=== PATIENT | female | born 1940 | race Two or more races ===

== ENCOUNTER 2021-01-19 18:22 | Emergency (ER) | payer OTHER ==
[~2021-01-19] VITALS: Ht 162.6 cm; Wt 59.0 kg
[2021-01-19 21:01] VITALS: BP 161/81
[2021-01-19] MEDS ORDERED: traMADol HCL 50 MG TAB PO ONE ×2 (21:45→23:30)
== END 2021-01-19 23:48 | disposition home or self-care (01) ==
LOC: ER 18:25
DX: S52.502A Unspecified fracture of the lower end of left radius, initial encounter for closed fracture (principal); I10 Essential (primary) hypertension; E11.9 Type 2 diabetes mellitus without complications; Z88.5 Allergy status to narcotic agent; W18.39XA Other fall on same level, initial encounter; Y93.89 Activity, other specified; Y92.89 Other specified places as the place of occurrence of the external cause; Y99.8 Other external cause status
CPT/HCPCS: 29125; 73110

== ENCOUNTER 2024-04-19 12:25 | Inpatient (IN) | payer OTHER ==
[~2024-04-19] VITALS: Ht 162.6 cm; Wt 65.0 kg
--- NOTE | 2024-04-19 12:33 | ED.PDOC ---
Nigel. trauma (HPI) HPI Comments 83 y.o female with PMHx of HTN, hyperlipidemia, and Plavix use, presents to the ED via EMS for a chief complaint of right sided hip pain s/p mechanical fall today at home x 0600. EMS reports patient has 10/10 pain on right leg movement and is associated with rotation and shortening. Patient was assisted up by family earlier today and denies any LOC or feeling dizzy prior to fall. Patient received one gram of Tylenol en route by EMS but had no relief. On episode of vomiting noted on scene. Patient denies any other symptoms or pain at this time. BG read 192 prior to ED arrival. Chief Complaint: Fall Injury Time Seen by MD: 12:23 Primary Care Provider: NARA Urena notes: Nurses Notes, Automotive Brake Adjuster Notes, Medications, Allergies Allergies: Coded Allergies: Codeine (Verified Allergy, Unknown, 08/21/17) Home Meds Unable to Obtain Active Prescriptions or Reported Meds Information Source: Patient, Emergency Med Personnel Mode of Arrival: EMS Severity: Moderate Timing: Hours Duration: Since onset Prehospital treatment: Accucheck (192), Pain Meds (1 gram tylenol ) Location: (R) Hip Location of laceration: None Mechanism: Fall Associated signs and symtoms: Other Past Medical History PAST MEDICAL HISTORY: DM, High Lipids, HTN 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 Family History Family History: Reviewed,noncontributory to illness, No family hx of Cancer, No family hx of DM, No family hx of Heart giorgio, No family hx of HTN, No family hx ofKidney giorgio, No family hx of Liver giorgio, No family hx of Lung giorgio, No family hx of Stroke Social History Smoker: Non-Smoker Alcohol: Denies ETOH Use Drugs: Denies Drug Use Lives In: Home Constitutional: denies: chills, diaphoresis, fatigue, fever, malaise, sweats, weakness, others EENTM: denies: blurred vision, double vision, ear bleeding, ear discharge, ear drainage, ear pain, ear ringing, eye pain, eye redness, hearing loss, mouth pain, mouth swelling, nasal discharge, nose bleeding, nose congestion, nose pain, photophobia, tearing, throat pain, throat swelling, voice changes, others Respiratory: denies: cough, hemoptysis, orthopnea, SOB at rest, shortness of breath, SOB with excertion, stridor, wheezing, others Cardiovascular: denies: chest pain, dizzy spells, diaphoresis, Dyspnea on exertion, edema, irregular heart beat, left arm pain, lightheadedness, palpitations, PND, syncope, others Gastrointestinal: denies: abdomen distended, abdominal pain, blood streaked bowels, constipated, diarrhea, dysphagia, difficulty swallowing, hematemesis, melena, nausea, poor appetite, poor fluid intake, rectal bleeding, rectal pain, vomiting, others Genitourinary: denies: abnormal vagina bleeding, burning, dyspareunia, dysuria, flank pain, frequency, hematuria, incontinence, pain, , vagina discharge, urgency, others Neurological: denies: dizziness, fainting, headache, left sided numbness, left sided weakness, numbness, paresthesia, pre-existing deficit, right sided numbness, right sided weakness, seizure, speech problems, tingling, tremors, weakness, others Musculoskeletal: reports: others (right hip pain ); denies: back pain, gout, joint pain, joint swelling, muscle pain, muscle stiffness, neck pain Integumetry: denies: bruises, change in color, change in hair/nails, dryness, laceration, lesions, lumps, rash, wounds, others Allergic/Immunocompromised: denies: Difficulty Healing, Frequent Infections, Hives, Itching, others Hematologic/Lymphatic: denies: anemia, blood clots, easy bleeding, easy bruising, swollen glands, others Endocrine: denies: excessive hunger, excessive sweating, excessive thirst, excessive urination, flushing, intolerance to cold, intolerance to heat, unexplained weight gain, unexplained weight loss, others Psychiatric: denies: anxiety, bipolar disorder, depression, hopeless, panic disorder, schizophrenia, sleepless, suicidal, others All Other Systems: Reviewed and Negative Physical Exam General Appearance: Moderate Distress HEENT: Normal ENT Inspection, Pharynx Normal, TMs Normal Neck: Full Range of Motion, Non-Tender, Normal, Normal Inspection Respiratory: Chest Non-Tender, Lungs Clear, No Accessory Muscle Use, No Respiratory Distress, Normal Breath Sounds Cardiovascular: No Edema, No JVD, No Murmur, No Gallop, Normal Peripheral Pulses, Regular Rate/Rhythm Breast Exam: Deferred Gastrointestinal: No Organomegaly, Non Tender, No Pulsatile Mass, Normal Bowel Sounds, Soft Genitalia: Deferred Pelvic: Deferred Rectal: Deferred Extremities: No calf tenderness, Normal capillary refill, No pedal edema Musculoskeletal : Location: Right Extremity Location: Hip Apperance: Deformity, Limited ROM, Tenderness: Moderate Neurologic: Alert, canvas shrinker II-XII nml as Tested, Motor Weakness, Normal Affect, Normal Mood, No Sensory Deficits Cerebellar Function: Normal Reflexes: Normal Skin: Dry, Normal Color, Warm Lymphatic: No Adenopathy Was a procedure done? Was a procedure done?: No Differential Diagnosis Multiple Trauma: Fractures, Abrasions, Contusion X-Ray, Labs, Meds, VS Vital Signs Date Time Temp Pulse Resp B/P (MAP) Pulse Ox O2 Delivery O2 Flow Rate FiO2 04/19/24 13:31 82 22 96 Nasal Cannula* 2 28 04/19/24 13:20 78 21 151/76 (101) 96 04/19/24 13:12 82 16 151/76 04/19/24 12:28 98.5 93 20 164/75 (104) 98 Lab Test 04/19/24 13:41 04/19/24 13:30 Range/Units White Blood Count 9.4 4.4-10.8 10^3/uL Red Blood Count 4.20 4.0-5.20 10^6/uL Hemoglobin 12.4 12.2-16.2 g/dL Hematocrit 37.2 36.0-46.0 % Mean Corpuscular Volume 88.5 80.0-100.0 fL Mean Corpuscular Hemoglobin 29.6 28.0-32.0 pg Mean Corpuscular Hemoglobin Concent 33.4 32.0-36.0 g/dL Red Cell Distribution Width 13.5 11.8-14.3 % Platelet Count 228 140-450 10^3/uL Mean Platelet Volume 7.9 6.9-10.8 fL Neutrophils (%) (Auto) 87.2 H 37.0-80.0 % Lymphocytes (%) (Auto) 6.5 L 10.0-50.0 % Monocytes (%) (Auto) 6.1 0.0-12.0 % Eosinophils (%) (Auto) 0.0 0.0-7.0 % Basophils (%) (Auto) 0.2 0.0-2.0 % Neutrophils # (Auto) 8.2 1.6-8.6 10 ^3/uL Lymphocytes # (Auto) 0.6 0.4-5.4 10 ^3/uL Monocytes # (Auto) 0.6 0-1.3 10 ^3/uL Eosinophils # (Auto) 0 0-0.8 10 ^3/uL Basophils # (Auto) 0 0-0.2 10 ^3/uL Nucleated Red Blood Cells 0.0 % Prothrombin Time 9.9 9.3-11.8 sec Prothrombin Time INR 0.93 0.9-1.15 Activated Partial Thromboplast Time 24.5 24.5-34.5 SEC Sodium Level 134 L 136-145 mmol/L Potassium Level 3.7 3.5-5.1 mmol/L Chloride Level 101 98-107 mmol/L Carbon Dioxide Level 22 20-31 mmol/L Anion Gap 11 5-15 Blood Urea Nitrogen 18 9-23 mg/dL Creatinine 0.79 0.550-1.02 mg/dL Glomerular Filtration Rate Calc 74 >90 mL/min BUN/Creatinine Ratio 22.8 H 10.0-20.0 Serum Glucose 157 H 74-106 mg/dL Calcium Level 9.6 8.7-10.4 mg/dL Urine Color Dark-yellow Yellow Urine Clarity Clear Clear Urine pH 6.5 5.0-9.0 Urine Specific [place] 1.017 1.001-1.035 Urine Protein 1+ H Negative Urine Ketones 2+ H Negative Urine Blood 3+ H Negative /uL Urine Nitrite Negative Negative Urine Bilirubin Negative Negative Urine Urobilinogen Normal Negative mg/dL Urine Leukocyte Esterase 1+ Negative /uL Urine RBC 215 0 - 4 /hpf Urine Microscopic WBC 18 H 0-5 /HPF Urine Squamous Epithelial Cells Few <5 /hpf Urine Bacteria None seen None Seen /hpf Urine Mucus Few None Seen Urine Glucose Normal Normal mg/dL Current Medications Medications (Trade) Dose Ordered Sig/Praveena Route Start Time Stop Time Status Last Admin Morphine Sulfate 2 mg ONCE ONCE IV 04/19/24 12:30 04/19/24 12:31 DC 04/19/24 13:12 Ondansetron HCl (Zofran) 4 mg ONCE ONCE IV 04/19/24 12:30 04/19/24 12:31 DC 04/19/24 13:11 CLINICAL INFORMATION: 83 years old, Female; fall injury. CT images of the right hip were obtained without IV contrast IMPRESSION: Acute right hip intertrochanteric fracture as described above. CLINICAL INDICATION: Trauma FINDINGS/IMPRESSION: Right intertrochanteric nondisplaced fracture is visualized. The chest x-ray is negative At this time, we did speak with the orthopedic surgeon and he has accepted to consult on this patient The urine test is positive for UTI The CBC and chemistry panel is within normal limits At this time, the patient had an IV Hep-Lock established and was given morphine 2 mg IV push for the pain and Zofran 4 mg IV push The patient will be admitted at this time. Images Reviewed?: Images reviewed and evaluated by me Time of 1ST Reevaluation: 12:32 Reevaluation 1ST: Unchanged Patient Education/Counseling: Diagnosis, Treatment, Prognosis Family Education/Counseling: No Family Present Departure 1 Departure Time of Disposition: 14:57 Impression: Primary Impression: Fracture, intertrochanteric, right femur Qualified Codes: S72.144A - Nondisplaced intertrochanteric fracture of right femur, initial encounter for closed fracture Additional Impression: History of fall Disposition: ADMITTED INPATIENT Admit to: Med Surg Condition: Fair e-Prescriptions Unable to Obtain Active Prescriptions or Reported Meds Critical Care Note Critical Care Time?: No Stability Stability form required: Yes Unstable for transfer: ED Physician Assesment (Clinical assesment) I personally scribed for DOLORES STONE MD ([email or web address]) on 04/19/24 at 12:33. Electronically submitted by Kamala Whitt ([employer]). I personally scribed for DOLORES STONE MD ([email or web address]) on 04/19/24 at 14:36. Electronically submitted by Kamala Whitt ([employer]). DOLORES STONE MD Apr 19, 2024 12:33
[2024-04-19] MEDS: ONDANSETRON HCL 4 MG/2 ML VIAL IV ONE (13:11)
[2024-04-19] MEDS: MORPHINE SULFATE INJ 2 MG/ml SYRG IV ONE (13:12)
--- NOTE | 2024-04-19 13:19 | DVH ---
CLINICAL INDICATION: Trauma TECHNIQUE: 3 radiographic views of the right hip were obtained. Comparison: None FINDINGS/IMPRESSION: Right intertrochanteric nondisplaced fracture is visualized.
--- NOTE | 2024-04-19 13:19 | DVH ---
CLINICAL INDICATION: Trauma TECHNIQUE: 3 radiographic views of the right hip were obtained. Comparison: None FINDINGS/IMPRESSION: Right intertrochanteric nondisplaced fracture is visualized.
[2024-04-19 13:31] VITALS: PULSE 82; RESP 22; O2SAT 96
[2024-04-19 13:47] LABS: Urine Bacteria None Seen /hpf (None Seen)
[2024-04-19 14:20] LABS: Urine Blood 3+ /uL (Negative); Urine Clarity Clear (Clear); Urine Color Dark-Yellow (Yellow); Urine Mucus FEW (None Seen); Urine Protein, UAD 1+ (Negative); Urine Specific Gravity 1.017 (1.001-1.035); Urine Squamous Epithelial Cell FEW /hpf (<5); Urine Urobilinogen Normal (Negative); Urine WBC 18 /HPF (0-5); Urine pH 6.5 (5.0-9.0)
[2024-04-19 14:21] LABS: Basophils # (auto) 0 10 ^3/uL (0-0.2); Basophils % (auto) 0.2 % (0.0-2.0); Eosinophils # (auto) 0 10 ^3/uL (0-0.8); Hematocrit 37.2 % (36.0-46.0); Hemoglobin 12.4 g/dL (12.2-16.2); Lymphocytes # (auto) 0.6 10 ^3/uL (0.4-5.4); Lymphocytes % (auto) 6.5 % (10.0-50.0); Mean Corpuscular Hemoglobin 29.6 pg (28.0-32.0); Mean Corpuscular Hgb Conc. 33.4 g/dL (32.0-36.0); Mean Corpuscular Volume 88.5 fL (80.0-100.0); Monocytes # (auto) 0.6 10 ^3/uL (0-1.3); Monocytes % (auto) 6.1 % (0.0-12.0); Neutrophils # (auto) 8.2 10 ^3/uL (1.6-8.6); Neutrophils % (auto) 87.2 % (37.0-80.0); Platelet Count (auto) 228 10^3/uL (140-450); Red Cell Distribution Width 13.5 % (11.8-14.3); White Blood Cell 9.4 10^3/uL (4.4-10.8)
--- NOTE | 2024-04-19 14:27 | DVH ---
CLINICAL INFORMATION: 83 years old, Female; fall injury. TECHNIQUE: Axial CT images of the right hip were obtained without IV contrast. Coronal and sagittal r eformatted images were obtained, reviewed, and stored. Scratched at All CT scans at this [facility] are performed using dose modulation techniques as appropriate to a performed exam including th e following: Automated exposure control was utilized; adjustment of the MA and/or KV according to pat ient size; and use of iterative reconstruction technique. CTDIvol = 11.03 mGy DLP = 309.47 mGy-cm COMPARISON: Same day radiographs. FINDINGS: Acute, comminuted right hip intertrochanteric fracture, with fracture planes extending to t he greater trochanter and lesser trochanter. Small thin fracture plane extending to the subtrochante alin region. There is associated varus angulation. [id number] soft tissue swelling adjacent to t he fracture site. There is a [place] catheter extending into the bladder. Large bladder calculus visual ized measuring up to 2.7 cm. Dense stool in the rectum. IMPRESSION: Acute right hip intertrochanteric fracture as described above.
[2024-04-19 14:28] LABS: Anion Gap 11 (5-15); Carbon Dioxide 22 mmol/L (20-31); Chloride 101 mmol/L (98-107); Potassium 3.7 mmol/L (3.5-5.1)
[2024-04-19 14:30] LABS: Calcium 9.6 mg/dL (8.7-10.4); Sodium 134 mmol/L (136-145)
[2024-04-19 14:34] LABS: BUN/Creatinine Ratio 22.8 (10.0-20.0); Blood Urea Nitrogen 18 mg/dL (9-23)
[2024-04-19 14:38] LABS: INR 0.93 (0.9-1.15); Partial Thromboplastin Time 24.5 SEC (24.5-34.5); Prothrombin Time 9.9 sec (9.3-11.8)
[2024-04-19 14:41] LABS: Glucose 157 mg/dL (74-106)
[2024-04-19] MEDS: amLODIPine BESYLATE 5 MG TAB PO ONE (19:30)
--- NOTE | 2024-04-19 19:59 | DVHHP2 ---
Admitting Diagnosis: Right hip pain History of Present Illness 83 y.o female with PMHx of HTN, hyperlipidemia, and Plavix use, presents to the ED via EMS for a chief complaint of right sided hip pain s/p mechanical fall today at home x 0600. EMS reports patient has 10/10 pain on right leg movement and is associated with rotation and shortening. Patient was assisted up by family earlier today and denies any LOC or feeling dizzy prior to fall. Patient received one gram of Tylenol en route by EMS but had no relief. On episode of vomiting noted on scene. Patient denies any other symptoms or pain at this time. BG read 192 prior to ED arrival. 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 Family History Family History: Reviewed,noncontributory to illness, No family hx of Cancer, No family hx of DM, No family hx of Heart giorgio, No family hx of HTN, No family hx ofKidney giorgio, No family hx of Liver giorgio, No family hx of Lung giorgio, No family hx of Stroke Social History Smoker: Non-Smoker Alcohol: Denies ETOH Use Drugs: Denies Drug Use Lives In: Home Allergies: Coded Allergies: Codeine (Verified Allergy, Unknown, 08/21/17) Home Meds Unable to Obtain Active Prescriptions or Reported Meds Current Medications Current Medications Medications (Trade) Dose Ordered Sig/Praveena Route PRN Reason Start Time Stop Time Status Last Admin Sodium Chloride (Saline Lock Ns) 10 ml Q8HR IV 04/19/24 22:00 UNV Docusate Sodium (Colace Capsule) 100 mg BIDPRN PRN PO FOR CONSTIPATION 04/19/24 20:00 UNV Acetaminophen (Tylenol Tablet) 650 mg Q6HP PRN PO PAIN SCALE 1-3 OR TEMP>100.4 04/19/24 20:00 UNV Acetaminophen/ Hydrocodone Bitart ([place] 5/325MG Tab) 1 tab Q4HP PRN PO MODERATE PAIN (4-6 PAIN SCALE) 04/19/24 20:00 UNV Hydromorphone HCl (Dilaudid Injection) 0.5 mg Q4HP PRN IV SEVERE PAIN (7-10 PAIN SCALE) 04/19/24 20:00 UNV Ondansetron HCl (Zofran) 4 mg Q4HP PRN IV NAUSEA / VOMITING 04/19/24 20:00 UNV Amlodipine Besylate (Norvasc Tablet) 10 mg DAILY PO 04/20/24 10:00 UNV Hydralazine HCl (Apresoline Injection) 5 mg Q4H PRN IV SBP > 165 04/19/24 20:00 UNV Pantoprazole Sodium (Protonix) 40 mg DAILY IV 04/20/24 10:00 UNV Vital Signs Vital Signs Date Time Temp Pulse Resp B/P (MAP) Pulse Ox O2 Delivery O2 Flow Rate FiO2 04/19/24 19:42 98.4 73 21 154/85 (108) 96 98.4 04/19/24 13:31 Nasal Cannula* 2 28 Physical Exam -83 years old woman, well nourished well developed. No apparent distress HEENT-atraumatic normocephalic Heart-regular rate and rhythm Lungs clear to auscultate bilaterally Abdomen soft nontender nondistended Musculoskeletal-right hip pain with the movement and palpation. Neuro-AO x3, no focal deficits Results Labs Test 04/19/24 13:41 04/19/24 13:30 Range/Units White Blood Count 9.4 4.4-10.8 10^3/uL Red Blood Count 4.20 4.0-5.20 10^6/uL Hemoglobin 12.4 12.2-16.2 g/dL Hematocrit 37.2 36.0-46.0 % Mean Corpuscular Volume 88.5 80.0-100.0 fL Mean Corpuscular Hemoglobin 29.6 28.0-32.0 pg Mean Corpuscular Hemoglobin Concent 33.4 32.0-36.0 g/dL Red Cell Distribution Width 13.5 11.8-14.3 % Platelet Count 228 140-450 10^3/uL Mean Platelet Volume 7.9 6.9-10.8 fL Neutrophils (%) (Auto) 87.2 H 37.0-80.0 % Lymphocytes (%) (Auto) 6.5 L 10.0-50.0 % Monocytes (%) (Auto) 6.1 0.0-12.0 % Eosinophils (%) (Auto) 0.0 0.0-7.0 % Basophils (%) (Auto) 0.2 0.0-2.0 % Neutrophils # (Auto) 8.2 1.6-8.6 10 ^3/uL Lymphocytes # (Auto) 0.6 0.4-5.4 10 ^3/uL Monocytes # (Auto) 0.6 0-1.3 10 ^3/uL Eosinophils # (Auto) 0 0-0.8 10 ^3/uL Basophils # (Auto) 0 0-0.2 10 ^3/uL Nucleated Red Blood Cells 0.0 % Prothrombin Time 9.9 9.3-11.8 sec Prothrombin Time INR 0.93 0.9-1.15 Activated Partial Thromboplast Time 24.5 24.5-34.5 SEC Sodium Level 134 L 136-145 mmol/L Potassium Level 3.7 3.5-5.1 mmol/L Chloride Level 101 98-107 mmol/L Carbon Dioxide Level 22 20-31 mmol/L Anion Gap 11 5-15 Blood Urea Nitrogen 18 9-23 mg/dL Creatinine 0.79 0.550-1.02 mg/dL Glomerular Filtration Rate Calc 74 >90 mL/min BUN/Creatinine Ratio 22.8 H 10.0-20.0 Serum Glucose 157 H 74-106 mg/dL Calcium Level 9.6 8.7-10.4 mg/dL Urine Color Dark-yellow Yellow Urine Clarity Clear Clear Urine pH 6.5 5.0-9.0 Urine Specific [place] 1.017 1.001-1.035 Urine Protein 1+ H Negative Urine Ketones 2+ H Negative Urine Blood 3+ H Negative /uL Urine Nitrite Negative Negative Urine Bilirubin Negative Negative Urine Urobilinogen Normal Negative mg/dL Urine Leukocyte Esterase 1+ Negative /uL Urine RBC 215 0 - 4 /hpf Urine Microscopic WBC 18 H 0-5 /HPF Urine Squamous Epithelial Cells Few <5 /hpf Urine Bacteria None seen None Seen /hpf Urine Mucus Few None Seen Urine Glucose Normal Normal mg/dL Primary Diagnosis Acute Right trochanteric fracture mechanical fall Plan CT scan and x-ray shows right trochanteric fracture NPO abdomen and IV fluids IV pain control IV antiemetic Resume antihypertensive IV hydralazine p.r.n. for SBP greater than 165 Orthopedic consult for right hip fracture SCD for DVT prophylaxis Full code PPI for GI prophylaxis Plan discussed with: Patient Problems List: (1) Fall Status: Acute (2) Fracture, intertrochanteric, right femur Status: Acute Date of Service: Apr 19, 2024 Billing Provider: CELINA DOTSON MD Common Visit Codes: [id number] INP/OBS CARE (HIGH) CELINA DOTSON MD Apr 19, 2024 19:59
[2024-04-19] MEDS ORDERED: hydrALAZINE HCL 20 MG/ML VL IV PRN (20:00)
[2024-04-19] MEDS: D5W/LACTATED RINGERS 1,000 ML IV ONE (20:00)
[2024-04-19] MEDS: HYDROcodone-ACET 5/325MG TAB PO PRN (21:00)
[2024-04-19 22:18] VITALS: RESP 18; O2SAT 94
[2024-04-19 22:30] VITALS: BP 144/69; PULSE 76; RESP 18; TEMP 98; O2SAT 95
[2024-04-19] MEDS ORDERED: AMLO1TAB23 PO (22:34)
[2024-04-19] MEDS ORDERED: CLOP75TA70 PO (22:34)
[2024-04-19] MEDS: SODIUM CHLOR 0.9% PF (SALINE LOCK) 10ML VIAL/SYR IV SCH (23:09)
[2024-04-20] VITALS (7 sets, daily range): BP systolic 127–168; BP diastolic 64–75; PULSE 74–84; RESP 18–20; TEMP 97.3–98.4; O2SAT 92–95
[2024-04-20 06:15] LABS: Basophils # (auto) 0 10 ^3/uL (0-0.2); Basophils % (auto) 0.2 % (0.0-2.0); Eosinophils # (auto) 0 10 ^3/uL (0-0.8); Eosinophils % (auto) 0.2 % (0.0-7.0); Hematocrit 37.8 % (36.0-46.0); Hemoglobin 12.9 g/dL (12.2-16.2); Lymphocytes # (auto) 1.5 10 ^3/uL (0.4-5.4); Mean Corpuscular Hemoglobin 30.1 pg (28.0-32.0); Mean Corpuscular Hgb Conc. 34.2 g/dL (32.0-36.0); Monocytes # (auto) 0.7 10 ^3/uL (0-1.3); Monocytes % (auto) 9.7 % (0.0-12.0); Neutrophils # (auto) 4.9 10 ^3/uL (1.6-8.6); Neutrophils % (auto) 68.9 % (37.0-80.0); Nucleated Red Blood Cells % 0.1 %; Platelet Count (auto) 200 10^3/uL (140-450); Red Cell Distribution Width 13.5 % (11.8-14.3); White Blood Cell 7.1 10^3/uL (4.4-10.8)
[2024-04-20] MEDS: HYDROmorphone HCL 2 MG/ML VL/or syr IV PRN (06:27)
[2024-04-20] MEDS: ONDANSETRON HCL 4 MG/2 ML VIAL IV PRN (06:48)
[2024-04-20 07:04] LABS: Anion Gap 8 (5-15); Carbon Dioxide 25 mmol/L (20-31)
[2024-04-20 07:05] LABS: Calcium 9.6 mg/dL (8.7-10.4)
[2024-04-20 07:07] LABS: Chloride 99 mmol/L (98-107); Potassium 3.6 mmol/L (3.5-5.1); Sodium 132 mmol/L (136-145)
[2024-04-20 07:09] LABS: Glucose 121 mg/dL (74-106)
[2024-04-20 07:10] LABS: Alkaline Phosphatase 82 U/L (46-116)
[2024-04-20 07:11] LABS: Alanine Aminotransferase 12 U/L (7-40); Albumin 4.1 g/dL (3.2-4.8); Aspartate Aminotransferase 18 U/L (13-40)
[2024-04-20 07:12] LABS: Bilirubin, Total 0.9 mg/dL (0.2-1.0)
[2024-04-20 07:23] LABS: BUN/Creatinine Ratio 18.2 (10.0-20.0); Blood Urea Nitrogen 12 mg/dL (9-23)
--- NOTE | 2024-04-20 07:29 | DVHINCON2 ---
Date of service: Apr 20, 2024 Referring Physician ED Reason for Consultation right hip fracture History of Present Illness 83 y.o female with PMHx of HTN, hyperlipidemia, presents to the ED via EMS for a chief complaint of right sided hip pain s/p mechanical fall yesterday at home. Patient complains of severe pain and inability to bear weight right hip. Patient denies cardiac or neurosxs associated with fall. Patient denies any other injuries. Patient lives in her own home and is an independent ambulator without assistive devices. Patient denies chest pain or shortness of breath with activity. She reports a remote history of myocardial infarction. 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 Social History Smoker: Non-Smoker Alcohol: Denies ETOH Use Drugs: Denies Drug Use Lives In: Home Family History: Alcoholism G8 FATHER Allergies: Coded Allergies: Codeine (Verified Allergy, Unknown, 08/21/17) Home Meds Reported Medications Clopidogrel Bisulfate (CLOPIDOGREL) 75 Mg Tab, 1 TAB PO DAILY 04/19/24 Amlodipine Besylate (Amlodipine Besylate) 10 Mg Tab, 1 TAB PO DAILY 04/19/24 Current Medications Current Medications Medications (Trade) Dose Ordered Sig/Praveena Route PRN Reason Start Time Stop Time Status Last Admin Sodium Chloride (Saline Lock Ns) 10 ml Q8HR IV 04/19/24 22:00 04/20/24 06:03 Docusate Sodium (Colace Capsule) 100 mg BIDPRN PRN PO FOR CONSTIPATION 04/19/24 20:00 Acetaminophen (Tylenol Tablet) 650 mg Q6HP PRN PO PAIN SCALE 1-3 OR TEMP>100.4 04/19/24 20:00 Acetaminophen/ Hydrocodone Bitart ([place] 5/325MG Tab) 1 tab Q4HP PRN PO MODERATE PAIN (4-6 PAIN SCALE) 04/19/24 20:00 04/20/24 00:57 Hydromorphone HCl (Dilaudid Injection) 0.5 mg Q4HP PRN IV SEVERE PAIN (7-10 PAIN SCALE) 04/19/24 20:00 04/20/24 06:27 Ondansetron HCl (Zofran) 4 mg Q4HP PRN IV NAUSEA / VOMITING 04/19/24 20:00 04/20/24 06:48 Amlodipine Besylate (Norvasc Tablet) 10 mg DAILY PO 04/20/24 10:00 Hydralazine HCl (Apresoline Injection) 5 mg Q4H PRN IV SBP > 165 04/19/24 20:00 Pantoprazole Sodium (Protonix) 40 mg DAILY IV 04/20/24 10:00 Review of Systems Negative on 10 point review except as above Vital Signs Vital Signs Date Time Temp Pulse Resp B/P (MAP) Pulse Ox O2 Delivery O2 Flow Rate FiO2 04/20/24 06:27 78 18 154/75 04/20/24 05:00 97.4 94 97.4 04/19/24 13:31 Nasal Cannula* 2 28 Physical Exam Well-developed well-nourished female in no acute distress Alert and oriented x4 Right lower extremity is short and rotated Any passive range of motion right lower extremity causes severe right hip pain No calf edema or tenderness Distally neurovascularly intact X-rays and CT reveal angulated, comminuted intertrochanteric fracture right hip, osteopenia Labs/Diagnostic Data Labs Test 04/20/24 05:25 04/19/24 13:41 04/19/24 13:30 Range/Units White Blood Count 7.1 4.4-10.8 10^3/uL Red Blood Count 4.30 4.0-5.20 10^6/uL Hemoglobin 12.9 12.2-16.2 g/dL Hematocrit 37.8 36.0-46.0 % Mean Corpuscular Volume 88.0 80.0-100.0 fL Mean Corpuscular Hemoglobin 30.1 28.0-32.0 pg Mean Corpuscular Hemoglobin Concent 34.2 32.0-36.0 g/dL Red Cell Distribution Width 13.5 11.8-14.3 % Platelet Count 200 140-450 10^3/uL Mean Platelet Volume 7.8 6.9-10.8 fL Neutrophils (%) (Auto) 68.9 37.0-80.0 % Lymphocytes (%) (Auto) 21.0 10.0-50.0 % Monocytes (%) (Auto) 9.7 0.0-12.0 % Eosinophils (%) (Auto) 0.2 0.0-7.0 % Basophils (%) (Auto) 0.2 0.0-2.0 % Neutrophils # (Auto) 4.9 1.6-8.6 10 ^3/uL Lymphocytes # (Auto) 1.5 0.4-5.4 10 ^3/uL Monocytes # (Auto) 0.7 0-1.3 10 ^3/uL Eosinophils # (Auto) 0 0-0.8 10 ^3/uL Basophils # (Auto) 0 0-0.2 10 ^3/uL Nucleated Red Blood Cells 0.1 % Sodium Level 132 L 136-145 mmol/L Potassium Level 3.6 3.5-5.1 mmol/L Chloride Level 99 98-107 mmol/L Carbon Dioxide Level 25 20-31 mmol/L Anion Gap 8 5-15 Blood Urea Nitrogen 12 9-23 mg/dL Creatinine 0.66 0.550-1.02 mg/dL Glomerular Filtration Rate Calc 87 >90 mL/min BUN/Creatinine Ratio 18.2 10.0-20.0 Serum Glucose 121 H 74-106 mg/dL Calcium Level 9.6 8.7-10.4 mg/dL Total Bilirubin 0.9 0.2-1.0 mg/dL Aspartate Amino Transferase (AST) 18 13-40 U/L Alanine Aminotransferase (ALT) 12 7-40 U/L Alkaline Phosphatase 82 46-116 U/L Total Protein 7.0 5.7-8.2 g/dL Albumin 4.1 3.2-4.8 g/dL Prothrombin Time 9.9 9.3-11.8 sec Prothrombin Time INR 0.93 0.9-1.15 Activated Partial Thromboplast Time 24.5 24.5-34.5 SEC Urine Color Dark-yellow Yellow Urine Clarity Clear Clear Urine pH 6.5 5.0-9.0 Urine Specific [place] 1.017 1.001-1.035 Urine Protein 1+ H Negative Urine Ketones 2+ H Negative Urine Blood 3+ H Negative /uL Urine Nitrite Negative Negative Urine Bilirubin Negative Negative Urine Urobilinogen Normal Negative mg/dL Urine Leukocyte Esterase 1+ Negative /uL Urine RBC 215 0 - 4 /hpf Urine Microscopic WBC 18 H 0-5 /HPF Urine Squamous Epithelial Cells Few <5 /hpf Urine Bacteria None seen None Seen /hpf Urine Mucus Few None Seen Urine Glucose Normal Normal mg/dL Assessment Acute right proximal femur unstable intertrochanteric fracture Plan/Recommendation Recommendation is for closed reduction cephalomedullary nail. I explained the diagnosis, prognosis, procedure, treatment options, and risks which include but are not limited to infection, bleeding, transfusion, malunion, nonunion, leg length discrepancy, nerve injury, iatrogenic fracture, DVT, and PE. Patient understood and agreed to proceed all questions answered. I planned to perform surgery today however anesthesia is requesting cardiac consult despite my urging that the early intervention is more important in the absence of any acute cardiac signs or symptoms. Plan discussed with: Patient MAG GARLAND MD Apr 20, 2024 07:28
[2024-04-20] MEDS: PANTOPRAZOLE 40 MG/10 ML VIAL INJ IV SCH (09:27)
[2024-04-20] MEDS: amLODIPine BESYLATE 5 MG TAB PO SCH (09:27)
--- NOTE | 2024-04-20 13:26 | DVHINCON2 ---
[facility] 04/20/24 1326: Date Seen: Apr 20, 2024 Referring Physician MD Noelle Reason for Consultation Cardiac risk stratification History of Present Illness This is an 83-year-old female patient who presents to emergency room status post mechanical fall. The patient reports she sustained a fall at home when walking from her kitchen. EMS was called and she was brought to the emergency room for further evaluation. Imaging revealed a right intertrochanteric nondisplaced fracture. Cardiology has now been consulted for cardiac risk stratification. Initial twelve lead electrocardiogram reveals normal sinus rhythm with PVC and artifact. Significant past medical history includes coronary artery disease status post PTCA X 1 ERNIE to left circumflex (on Plavix), balloon angioplasty of left obtuse marginal artery, hypertension, dyslipidemia, and type 2 diabetes mellitus. Of note, the patient was seen at this facility in 2018 in which she came in cardiac arrest and ventricular fibrillation and was subsequently taken to the animal laboratory technician where she underwent a coronary angiogram with stent placement. Patient reports that she follows up with coil cleaner in the outpatient setting. Past Medical History Past medical history reviewed. No other significant than mentioned above. Past Surgical History Hysterectomy Cataract surgery Family History: Alcoholism G8 FATHER Family History Family history reviewed. Social History Denies the use of tobacco, alcohol or illicit drugs. Allergies: Coded Allergies: Codeine (Verified Allergy, Unknown, 08/21/17) Home Meds Reported Medications Clopidogrel Bisulfate (CLOPIDOGREL) 75 Mg Tab, 1 TAB PO DAILY 04/19/24 Amlodipine Besylate (Amlodipine Besylate) 10 Mg Tab, 1 TAB PO DAILY 04/19/24 Home Meds Home medications reviewed. Current Medications Current Medications Medications (Trade) Dose Ordered Sig/Praveena Route PRN Reason Start Time Stop Time Status Last Admin Sodium Chloride (Saline Lock Ns) 10 ml Q8HR IV 04/19/24 22:00 04/20/24 06:03 Docusate Sodium (Colace Capsule) 100 mg BIDPRN PRN PO FOR CONSTIPATION 04/19/24 20:00 Acetaminophen (Tylenol Tablet) 650 mg Q6HP PRN PO PAIN SCALE 1-3 OR TEMP>100.4 04/19/24 20:00 Acetaminophen/ Hydrocodone Bitart ([place] 5/325MG Tab) 1 tab Q4HP PRN PO MODERATE PAIN (4-6 PAIN SCALE) 04/19/24 20:00 2/1/25 00:57 Hydromorphone HCl (Dilaudid Injection) 0.5 mg Q4HP PRN IV SEVERE PAIN (7-10 PAIN SCALE) 04/19/24 20:00 04/20/24 06:27 Ondansetron HCl (Zofran) 4 mg Q4HP PRN IV NAUSEA / VOMITING 04/19/24 20:00 04/20/24 06:48 Amlodipine Besylate (Norvasc Tablet) 10 mg DAILY PO 04/20/24 10:00 04/20/24 09:27 Hydralazine HCl (Apresoline Injection) 5 mg Q4H PRN IV SBP > 165 04/19/24 20:00 Pantoprazole Sodium (Protonix) 40 mg DAILY IV 04/20/24 10:00 04/20/24 09:27 Review of Systems Constitutional: No symptom reported Ears, Nose, & Throat: No symptom reported Eyes: No symptom reported Neurological: No symptoms reported Pulmonary/Respiratory: No symptoms reported Cardiovascular: No symptom reported Gastrointestinal: No symptom reported Genitourinary: No symptom reported Musculoskeletal: Right leg pain Skin: No symptom reported Psychiatric: No symptom reported Endocrine: No symptom reported Hematologic/Lymphatic: No symptom reported Vital Signs Vital Signs Date Time Temp Pulse Resp B/P (MAP) Pulse Ox O2 Delivery O2 Flow Rate FiO2 04/20/24 13:00 98.4 74 20 146/68 (94) 92 98.4 04/20/24 08:20 Nasal Cannula* 2 28 Physical Exam General Appearance: Cooperative. Well-developed. Well-nourished. No acute distress. Pulmonary/Respiratory: Clear, bilateral breaths sounds. Cardiovascular/Chest: Regular rate and rhythm. Peripheral Pulses: 2+ Radial (R). 2+ Radial (L). 2+ Pedal (R). 2+ Pedal (L) Abdominal Exam: Normal bowel sounds. Ankle Exam: Negative ankle edema Lower extremities: Negative lower extremity edema Neuro/Mental Status: A/OX4, coherent. Thoughts/Psych: Normal thought pattern. Appropriate mood and affect. Good judgment and insight. Appearance: No acute distress. Skin Exam: Normal inspection. Normal color. Warm and dry. Labs/Diagnostic Data Labs Test 04/20/24 05:25 04/19/24 13:41 04/19/24 13:30 Range/Units White Blood Count 7.1 4.4-10.8 10^3/uL Red Blood Count 4.30 4.0-5.20 10^6/uL Hemoglobin 12.9 12.2-16.2 g/dL Hematocrit 37.8 36.0-46.0 % Mean Corpuscular Volume 88.0 80.0-100.0 fL Mean Corpuscular Hemoglobin 30.1 28.0-32.0 pg Mean Corpuscular Hemoglobin Concent 34.2 32.0-36.0 g/dL Red Cell Distribution Width 13.5 11.8-14.3 % Platelet Count 200 140-450 10^3/uL Mean Platelet Volume 7.8 6.9-10.8 fL Neutrophils (%) (Auto) 68.9 37.0-80.0 % Lymphocytes (%) (Auto) 21.0 10.0-50.0 % Monocytes (%) (Auto) 9.7 0.0-12.0 % Eosinophils (%) (Auto) 0.2 0.0-7.0 % Basophils (%) (Auto) 0.2 0.0-2.0 % Neutrophils # (Auto) 4.9 1.6-8.6 10 ^3/uL Lymphocytes # (Auto) 1.5 0.4-5.4 10 ^3/uL Monocytes # (Auto) 0.7 0-1.3 10 ^3/uL Eosinophils # (Auto) 0 0-0.8 10 ^3/uL Basophils # (Auto) 0 0-0.2 10 ^3/uL Nucleated Red Blood Cells 0.1 % Sodium Level 132 L 136-145 mmol/L Potassium Level 3.6 3.5-5.1 mmol/L Chloride Level 99 98-107 mmol/L Carbon Dioxide Level 25 20-31 mmol/L Anion Gap 8 5-15 Blood Urea Nitrogen 12 9-23 mg/dL Creatinine 0.66 0.550-1.02 mg/dL Glomerular Filtration Rate Calc 87 >90 mL/min BUN/Creatinine Ratio 18.2 10.0-20.0 Serum Glucose 121 H 74-106 mg/dL Calcium Level 9.6 8.7-10.4 mg/dL Total Bilirubin 0.9 0.2-1.0 mg/dL Aspartate Amino Transferase (AST) 18 13-40 U/L Alanine Aminotransferase (ALT) 12 7-40 U/L Alkaline Phosphatase 82 46-116 U/L Total Protein 7.0 5.7-8.2 g/dL Albumin 4.1 3.2-4.8 g/dL Prothrombin Time 9.9 9.3-11.8 sec Prothrombin Time INR 0.93 0.9-1.15 Activated Partial Thromboplast Time 24.5 24.5-34.5 SEC Urine Color Dark-yellow Yellow Urine Clarity Clear Clear Urine pH 6.5 5.0-9.0 Urine Specific [place] 1.017 1.001-1.035 Urine Protein 1+ H Negative Urine Ketones 2+ H Negative Urine Blood 3+ H Negative /uL Urine Nitrite Negative Negative Urine Bilirubin Negative Negative Urine Urobilinogen Normal Negative mg/dL Urine Leukocyte Esterase 1+ Negative /uL Urine RBC 215 0 - 4 /hpf Urine Microscopic WBC 18 H 0-5 /HPF Urine Squamous Epithelial Cells Few <5 /hpf Urine Bacteria None seen None Seen /hpf Urine Mucus Few None Seen Urine Glucose Normal Normal mg/dL Assessment Preprocedural cardiovascular examination Coronary artery disease status post PTCA X 1 ERNIE to left circumflex (on Plavix) Balloon angioplasty of left obtuse marginal artery Hypertension Dyslipidemia Type 2 diabetes mellitus Plan/Recommendation We will continue with the following plan/recommendations (Dr. Logan): Transthoracic echocardiogram reveals EF 40%. Revised cardiac risk index (David criteria): 2 point (10.1% risk of major cardiac event). The patient has an underlying history of coronary artery disease. The patient also reports a poor functional capacity prior to admission. The patient is at an elevated risk of developing a perioperative major adverse cardiac event. Per Cardiology standpoint, the patient is at a high risk for moderate risk surgery. We would like to recommend further evaluation with a nuclear stress test prior to proceeding with surgery unless surgery deemed to be emergent or urgent. Thank you for allowing us to care for this patient. Please call with any questions or concerns. Critical care time spent: 44 minutes This medical document was created using an electronic medical record system with voice recognition software and computerized dictation system. Although this document has been carefully reviewed, there might still be some phonetic and typographical errors. Occasional wrong-word or ``sound-alike substitutions may have occurred due to the inherent limitations of voice recognition software. These areas are purely typographical due to imperfections of the software programs and do not reflect any compromise in the patient's medical care. Please read the chart carefully and recognize, using context, where these substitutions have occurred. Plan discussed with: Patient NYHA Physical activity limitations: NA Date of Service: Apr 20, 2024 Billing Provider: [facility] Cardiology Common Codes: 72195-KUBHFOR INP/OBS CARE (High) Cardiology Consultation Codes: 13006-[id number] CONSULT <45MIN THO LOGAN MD 04/20/24 2144: Date Seen: Apr 20, 2024 Family History: Alcoholism G8 FATHER Allergies: Coded Allergies: Codeine (Verified Allergy, Unknown, 08/21/17) Home Meds Reported Medications Clopidogrel Bisulfate (CLOPIDOGREL) 75 Mg Tab, 1 TAB PO DAILY 04/19/24 Amlodipine Besylate (Amlodipine Besylate) 10 Mg Tab, 1 TAB PO DAILY 04/19/24 Plan/Recommendation The patient is at elevated risk (>1%) of developing a perioperative major adverse cardiac event and the functional capacity is poor. Recommend further evaluation with a pharmacologic stress test to evaluate for revascularization need prior to proceeding to surgery, unless if the benefit of proceeding with surgery outweighs the risk of waiting to perform additional testing that may be required for extensive cardiac evaluation. Please page the Cardiology Consult service to help manage any possible cardiovascular complications that arise post-operatively. Plan discussed with: Patient [facility] L[facility] Apr 20, 2024 13:26 THO LOGAN MD Apr 20, 2024 21:44
--- NOTE | 2024-04-20 13:40 | DVH ---
CLINICAL INFORMATION: 83 years old, Female; preprocedural; evaluate for cardiopulmonary disease. TECHNIQUE: Single AP portable chest radiograph was obtained. COMPARISON: XY CHEST PORTABLE on DOS: 04/19/24 FINDINGS: Lungs: Hyperaeration of the lungs with flattening of the diaphragm suggesting emphysematous changes, similar to the prior exam. Bilateral interstitial opacities of uncertain chronicity, unchanged. No pn eumothorax or pleural effusion. Atelectasis in the lung bases bilaterally. Cardiac: Heart size is within normal limits. Pulmonary vasculature: Unremarkable. Mediastinum/alina: Unremarkable. Bones: No acute osseous abnormality identified. Other: No other significant findings. IMPRESSION: 1. No evidence of acute disease in the chest. 2. Nonacute findings as described above.
[2024-04-20] MEDS: DOCUSATE SOD 100 MG CAP PO PRN (16:58)
--- NOTE | 2024-04-20 17:16 | DVHPN2 ---
Subjective Home resuming the care of the patient from today onwards. Patient denied any chest pain. 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 Medications Current Medications Medications Dose Ordered Sig/Praveena Route Start Time Stop Time Status Last Admin Dose Admin Sodium Chloride 10 ml Q8HR IV 04/19/24 22:00 04/20/24 14:33 10 ML Docusate Sodium 100 mg BIDPRN PRN PO 04/19/24 20:00 04/20/24 16:58 100 MG Acetaminophen 650 mg Q6HP PRN PO 04/19/24 20:00 Acetaminophen/ Hydrocodone Bitart 1 tab Q4HP PRN PO 04/19/24 20:00 04/20/24 00:57 1 TAB Hydromorphone HCl 0.5 mg Q4HP PRN IV 04/19/24 20:00 04/20/24 14:32 0.5 MG Ondansetron HCl 4 mg Q4HP PRN IV 04/19/24 20:00 04/20/24 16:57 4 MG Amlodipine Besylate 10 mg DAILY PO 04/20/24 10:00 04/20/24 09:27 10 MG Hydralazine HCl 5 mg Q4H PRN IV 04/19/24 20:00 Pantoprazole Sodium 40 mg DAILY IV 04/20/24 10:00 04/20/24 09:27 40 MG Laboratory Results Laboratory Tests 04/20/24 05:25 Chemistry Test 04/20/24 05:25 Albumin 4.1 g/dL (3.2-4.8) Calcium Level 9.6 mg/dL (8.7-10.4) Total Protein 7.0 g/dL (5.7-8.2) LFT Test 04/20/24 05:25 Alanine Aminotransferase (ALT) 12 U/L (7-40) Alkaline Phosphatase 82 U/L (46-116) Aspartate Amino Transferase (AST) 18 U/L (13-40) Total Bilirubin 0.9 mg/dL (0.2-1.0) Urinalysis Test 04/19/24 13:30 Urine Color Dark-yellow (Yellow) Urine Clarity Clear (Clear) Urine pH 6.5 (5.0-9.0) Urine Specific [place] 1.017 (1.001-1.035) Urine Protein 1+ (Negative) H Urine Ketones 2+ (Negative) H Urine Blood 3+ /uL (Negative) H Urine Nitrite Negative (Negative) Urine Bilirubin Negative (Negative) Urine Urobilinogen Normal mg/dL (Negative) Urine Leukocyte Esterase 1+ /uL (Negative) Urine RBC 215 /hpf (0 - 4) Urine Microscopic WBC 18 /HPF (0-5) H Urine Squamous Epithelial Cells Few /hpf (<5) Urine Bacteria None seen /hpf (None Seen) Urine Mucus Few (None Seen) Urine Glucose Normal mg/dL (Normal) Assessment/Plan Assessment/Plan ETT old female with a known history of hypertension, dyslipidemia, previous history of CAD status post PCI presented to the hospital status post mechanical fall found to have 1. Acute right hip intertrochanteric fracture status post mechanical fall 2. CAD status post PCI 3. Hypertension 4.dyslipidemia -pain meds as needed, DVT prophylaxis, orthopedic consultation, 2D echo and cardiology clearance Plan discussed with: Patient My Orders Orders - MANA GUTIERREZ MD Procedure Category Date Status Time Enoxaparin Sodium PHA 04/20/24 Transmitted (Lovenox) 17:15 Problem List: (1) Fracture, intertrochanteric, right femur (2) Fall Date of Service: Apr 20, 2024 Billing Provider: MANA GUTIERREZ MD Common Visit Codes: [id number] INP/OBS CARE(MOD) MANA GUTIERREZ MD Apr 20, 2024 17:16
--- NOTE | 2024-04-20 17:54 | DVHSR ---
APPROVED REPORT EXAM: Two-dimensional and M-mode echocardiogram with Doppler and color Doppler. Blood Pressure: 146/74 mmHg INDICATION Pre-Op BRIEF HISTORY CAD RISK FACTORS Height: 5'4", Weight: 130 DIMENSIONS LVDd5.5 (3.8-5.7cm)LA (2D)4.4 (1.9-4.0cm)Aortic Root3.7 (2.0-3.7cm) LVDs4.6 (2.5-4.0cm)LA (MM) (1.9-4.0cm)Aortic Cusp Exc1.7 (1.5-2.0cm) EF (%) 40.0 (55-70%)Rt. Atrium4.0 (1.9-4.0cm)Asc. Aorta cm IVSd1.2 (0.7-1.1cm)RV (D) (1.8-2.4cm) PWd0.9 (0.7-1.1cm) Mitral Valve MitralMitral Stenosis E wave0.70m/sMV Mean GR.4mmHg A wave1.36m/sMV Peak GR.12mmHg E/A ratio0.52D MVAcm2 DECEL [id number] 1/2 [id number] IVRTmsDop MVA3.98cm2 Aortic Valve Aortic ValveAortic Stenosis V11.14m/Shona Mean GR.4mmHg V21.65m/Shona Peak GR.11mmHg LVOT Diameter1.9 (1.8-2.4cm)Doppler AVA1.96cm2 AI P 1/2 Gaqx807.82ms Pulmonic Valve V21.29m/s Tricuspid Valve TR Velocity2.80m/s [id number] LEFT VENTRICLE The left ventricle is normal size. There is borderline to mild asymmetric left ventricular hypertrophy. The left ventricle is moderately reduced, LVEF 40%. Mild diastolic dysfunction. Hypokinetic inferior, inferolateral wall. RIGHT VENTRICLE The right ventricle is grossly normal size. The right ventricular systolic function is normal. ATRIA The left atrium is mildly dilated. The right atrium size is normal. MITRAL VALVE Mitral annular calcification is mild to moderate. Mitral regurgitation is mild to moderate. PULMONIC VALVE The pulmonic valve is not well visualized. There is trace pulmonic valvular regurgitation. TRICUSPID VALVE The tricuspid valve is grossly normal. No tricuspid regurgitation. AORTIC VALVE The aortic valve is trileaflet. There is trace to mild aortic regurgitation. GREAT VESSELS There is borderline aortic root dilatation. No PERICARDIAL EFFUSION No evidence of pericardial effusion. Other Information Technically limited study due to patient position. Conclusion The left ventricle is normal size. There is borderline to mild asymmetric left ventricular hypertroph y. The left ventricle is moderately reduced, LVEF 40%. Mild diastolic dysfunction. Hypokinetic inferi or, inferolateral wall. The right ventricular systolic function is normal. The left atrium is mildly dilated. No significant valvular abnormalities. No evidence of pericardial effusion.
[2024-04-20] MEDS: ENOXAPARIN SOD 40 MG/0.4 ML SYRINGE SC SCH (18:09)
--- NOTE | 2024-04-20 18:39 | DVHINCON2 ---
Date of service: Apr 20, 2024 Referring Physician Tk Hernandez MD Reason for Consultation Acute hypoxic respiratory failure. History of Present Illness 83-year-old woman with PMHx of hypertension, hyperlipidemia, DM, and Plavix use, presented to ED on 04/19/24 via EMS for chief complaint of right hip pain s/p mechanical fall at home. EMS reported patient has 10/10 pain on right leg movement and is associated with rotation and shortening. Patient was assisted up by family earlier on day of presentation and denied any LOC or feeling dizzy prior to fall. Patient received 1 gram of Tylenol en route by EMS but had no relief. One episode of vomiting noted on scene. Patient denied any other symptoms or pain at this time. BG read 192 prior to ED arrival. Patient was admitted for further care and pulmonary consultation is requested for evaluation and management of acute hypoxic respiratory failure. Review of Systems: 14-point review of systems negative unless otherwise noted above. Past Medical History: DM, High Lipids, HTN Past Surgical History: PTCA Medications: Reviewed. Allergies: Codeine. Family History: Alcoholism Social History: Nonsmoker. No alcohol or illicit drug use. Family History: Alcoholism G8 FATHER Allergies: Coded Allergies: Codeine (Verified Allergy, Unknown, 08/21/17) Home Meds Reported Medications Clopidogrel Bisulfate (CLOPIDOGREL) 75 Mg Tab, 1 TAB PO DAILY 04/19/24 Amlodipine Besylate (Amlodipine Besylate) 10 Mg Tab, 1 TAB PO DAILY 04/19/24 Current Medications Current Medications Medications (Trade) Dose Ordered Sig/Praveena Route PRN Reason Start Time Stop Time Status Last Admin Sodium Chloride (Saline Lock Ns) 10 ml Q8HR IV 04/19/24 22:00 04/20/24 14:33 Docusate Sodium (Colace Capsule) 100 mg BIDPRN PRN PO FOR CONSTIPATION 04/19/24 20:00 04/20/24 16:58 Acetaminophen (Tylenol Tablet) 650 mg Q6HP PRN PO PAIN SCALE 1-3 OR TEMP>100.4 04/19/24 20:00 Acetaminophen/ Hydrocodone Bitart ([place] 5/325MG Tab) 1 tab Q4HP PRN PO MODERATE PAIN (4-6 PAIN SCALE) 04/19/24 20:00 04/20/24 00:57 Hydromorphone HCl (Dilaudid Injection) 0.5 mg Q4HP PRN IV SEVERE PAIN (7-10 PAIN SCALE) 04/19/24 20:00 04/20/24 14:32 Ondansetron HCl (Zofran) 4 mg Q4HP PRN IV NAUSEA / VOMITING 04/19/24 20:00 04/20/24 16:57 Amlodipine Besylate (Norvasc Tablet) 10 mg DAILY PO 04/20/24 10:00 04/20/24 09:27 Hydralazine HCl (Apresoline Injection) 5 mg Q4H PRN IV SBP > 165 04/19/24 20:00 Pantoprazole Sodium (Protonix) 40 mg DAILY IV 04/20/24 10:00 04/20/24 09:27 Enoxaparin Sodium (Lovenox) 40 mg DAILY SC 04/20/24 17:15 04/20/24 18:09 Vital Signs Vital Signs Date Time Temp Pulse Resp B/P (MAP) Pulse Ox O2 Delivery O2 Flow Rate FiO2 04/20/24 17:00 98.4 84 20 127/73 (91) 95 98.4 04/20/24 08:20 Nasal Cannula* 2 28 Physical Exam Gen.: Patient lying in bed in no apparent distress. On supplemental oxygen. Head: Normocephalic, atraumatic. Eyes: EOMI/PERRLA. Ears: Normal hearing. Normal anatomy. Neck/trachea: Trachea midline, supple. Nose: Normal external anatomy. Mouth: Moist mucous membranes. Chest: Decreased air entry bilaterally. No wheezing or rhonchi. Cardiovascular: Positive S1, positive S2. Regular rate and rhythm. Abdomen: Positive bowel sounds in all 4 quadrants. Soft, non-tender, non- distended. : Deferred. Rectal: Deferred. Skin: Warm, dry. Intact. Extremities: 2+ radial pulses bilaterally. No lower extremity edema. Neuro: Awake, alert, oriented x3. No gross motor or sensory deficits. Cranial nerves II through XII intact. Gait not assessed. Labs/Diagnostic Data Labs Test 04/20/24 05:25 04/19/24 13:41 04/19/24 13:30 Range/Units White Blood Count 7.1 4.4-10.8 10^3/uL Red Blood Count 4.30 4.0-5.20 10^6/uL Hemoglobin 12.9 12.2-16.2 g/dL Hematocrit 37.8 36.0-46.0 % Mean Corpuscular Volume 88.0 80.0-100.0 fL Mean Corpuscular Hemoglobin 30.1 28.0-32.0 pg Mean Corpuscular Hemoglobin Concent 34.2 32.0-36.0 g/dL Red Cell Distribution Width 13.5 11.8-14.3 % Platelet Count 200 140-450 10^3/uL Mean Platelet Volume 7.8 6.9-10.8 fL Neutrophils (%) (Auto) 68.9 37.0-80.0 % Lymphocytes (%) (Auto) 21.0 10.0-50.0 % Monocytes (%) (Auto) 9.7 0.0-12.0 % Eosinophils (%) (Auto) 0.2 0.0-7.0 % Basophils (%) (Auto) 0.2 0.0-2.0 % Neutrophils # (Auto) 4.9 1.6-8.6 10 ^3/uL Lymphocytes # (Auto) 1.5 0.4-5.4 10 ^3/uL Monocytes # (Auto) 0.7 0-1.3 10 ^3/uL Eosinophils # (Auto) 0 0-0.8 10 ^3/uL Basophils # (Auto) 0 0-0.2 10 ^3/uL Nucleated Red Blood Cells 0.1 % Sodium Level 132 L 136-145 mmol/L Potassium Level 3.6 3.5-5.1 mmol/L Chloride Level 99 98-107 mmol/L Carbon Dioxide Level 25 20-31 mmol/L Anion Gap 8 5-15 Blood Urea Nitrogen 12 9-23 mg/dL Creatinine 0.66 0.550-1.02 mg/dL Glomerular Filtration Rate Calc 87 >90 mL/min BUN/Creatinine Ratio 18.2 10.0-20.0 Serum Glucose 121 H 74-106 mg/dL Calcium Level 9.6 8.7-10.4 mg/dL Total Bilirubin 0.9 0.2-1.0 mg/dL Aspartate Amino Transferase (AST) 18 13-40 U/L Alanine Aminotransferase (ALT) 12 7-40 U/L Alkaline Phosphatase 82 46-116 U/L Total Protein 7.0 5.7-8.2 g/dL Albumin 4.1 3.2-4.8 g/dL Prothrombin Time 9.9 9.3-11.8 sec Prothrombin Time INR 0.93 0.9-1.15 Activated Partial Thromboplast Time 24.5 24.5-34.5 SEC Urine Color Dark-yellow Yellow Urine Clarity Clear Clear Urine pH 6.5 5.0-9.0 Urine Specific [place] 1.017 1.001-1.035 Urine Protein 1+ H Negative Urine Ketones 2+ H Negative Urine Blood 3+ H Negative /uL Urine Nitrite Negative Negative Urine Bilirubin Negative Negative Urine Urobilinogen Normal Negative mg/dL Urine Leukocyte Esterase 1+ Negative /uL Urine RBC 215 0 - 4 /hpf Urine Microscopic WBC 18 H 0-5 /HPF Urine Squamous Epithelial Cells Few <5 /hpf Urine Bacteria None seen None Seen /hpf Urine Mucus Few None Seen Urine Glucose Normal Normal mg/dL Assessment Impression: Acute hypoxic respiratory failure Dependence on supplemental oxygen Atelectasis Right hip fracture Obesity Emphysema Likely COPD Plan: Supplemental oxygen 2 LPM NC Titrate to keep O2 sats above 92%. Taper O2 as tolerated. Patient desaturates on room air. Incentive spirometry Pain control Avoid oversedation Ortho recs appreciated Diet and lifestyle modifications for weight reduction Obesity - complicates all care Monitor renal function. Monitor electrolytes. Supplement as necessary. Monitor ins and outs. Recommend outpatient PFTs to assess pulmonary function. DVT prophylaxis. Prognosis: Poor given patient's multiple co-morbidities. Rest of plan per hospitalist and other consultants. Thank you, Dr. Hernandez, for allowing me to participate in this patient's care. Further recommendations will depend on the patient's clinical course. Please do not hesitate to contact me if you have any questions or concerns. This medical document was created using an electronic medical record system with [employer] dictation system. Although these documentations are being carefully reviewed, there may still be some phonetic and typographical changes. The errors are purely typographical, due to imperfection on the software program, and do not reflect any compromise in the patient's medical care. Plan discussed with: Patient, Other (EVANGELISTA Barr/MD Hernandez) LORI CROWE MD Apr 20, 2024 18:39
[2024-04-21 01:00] VITALS: BP 146/66; PULSE 74; RESP 18; TEMP 97.7; O2SAT 94
[2024-04-21 05:00] VITALS: BP 146/74; PULSE 78; RESP 19; TEMP 97.5; O2SAT 96
[2024-04-21] MEDS: ceFAZolin 2 GM/D5W100ml 100 ML IV ONE (06:59)
[2024-04-21] MEDS ORDERED: ETOMIDATE (2MG/ML) 20ML VIAL IV ONE (07:00)
[2024-04-21] MEDS ORDERED: PHENYLEPHRINE HCL 10 MG/ML VL ONE (07:03)
[2024-04-21] MEDS ORDERED: EPINEPHrine HCL 1 MG/1 ML AMP ONE (07:03)
[2024-04-21] MEDS ORDERED: SODIUM CHLORIDE LOCK 10 ML ONE (07:04)
[2024-04-21] MEDS ORDERED: MORPHINE SULF PF 5 MG/10 ML VIAL ONE (07:50)
[2024-04-21 08:00] VITALS: O2SAT 92
[2024-04-21] MEDS ORDERED: DexAMETHasone SOD PHOS 10MG/1ML VIAL INJ ONE (08:10)
[2024-04-21] MEDS ORDERED: KETOROLAC TROMETH 30 MG/ML 1ML VIAL ONE (08:10)
[2024-04-21] MEDS ORDERED: ONDANSETRON HCL 4 MG/2 ML VIAL ONE (08:11)
[2024-04-21] MEDS ORDERED: SUGAMMADEX 200mg/2ml Vial (100MG/ML) IV ONE (08:19)
[2024-04-21] MEDS ORDERED: HYDROcodone-ACET 10/325MG TAB PO PRN (08:30)
--- NOTE | 2024-04-21 08:35 | DVHOP2 ---
Operative Report - 2 Report Details Date: 04/21/24 Preop Diagnosis: Right proximal femur intertrochanteric fracture angulated, comminuted Postop Diagnosis: Same Surgeon: Rufus Garland MD Anesthesiologist: Carson Anesthesia: General, Regional Implant: Orthofix short nail, 130 degree angle, 95 mm hip screw, 30 mm distal locking screw Consent: The patient was informed of the risks and benefits of the procedure. These include but are not limited to complications of anesthesia, postoperative infection, incomplete relief of symptoms, recurrence of symptoms, damage to blood vessels, nerves and tendons, deep venous thrombosis, pulmonary embolism and possible need for repeat surgery in the future. Complications: None Estimated Blood Loss: 30 cc Fluids: See anesthesia record Findings: Angulated intertrochanteric fracture comminuted right hip Indications for Surgery: Unstable hip fracture in ambulatory patient Name of Procedure Performed Closed reduction, cephalomedullary nail right proximal femur intertrochanteric fracture, C-arm fluoroscopy Procedure Details Procedure Details: The patient was brought to the operating room and placed on the [place] table in the supine position. The patient was given general anesthetic anesthetic. Preop patient received IV Ancef. Nonoperative extremity was placed in the well- leg mckinley. Operative extremity placed in boot traction. Closed reduction maneuver performed and verified with C-arm fluoroscopy in AP and lateral views. Surgical timeout performed verifying patient, laterality and procedure. Operative extremity was prepped and draped in sterile fashion. Incision was made proximal to the greater trochanter then I incised the fascia. I passed a guidewire into the proximal femur and adjusted the position based on AP and lateral views with C arm. I used the soft tissue protector and reamed over the guidewire then guidewire was removed. I then inserted the previously templated nail until appropriate depth was reached based on C-arm fluoroscopy. I then passed the hip screw cannula to skin then made skin and fascial incision and passed it to bone. I inserted a guidewire into the proximal femoral neck and head and again adjusted position based on C arm. I measured for length. I then reamed and inserted the hip screw. Guidewire and cannula were removed. I then used the distal locking cannula through the static hole passing it to skin and making skin and fascial incision then passing it to bone. I drilled and measured length off the drill bit and inserted distal locking screw. I obtain C arm views AP and lateral throughout the length of the construct to verify fracture reduction and hardware placement. Wounds were irrigated with normal saline. Fascial tissue closed with 0 Vicryl. Subcu closed with 2-0 Vicryl. Skin closed with ken. Wounds dressed sterilely. Patient tolerated procedure well was brought to recovery in stable condition. Condition Stable Disposition Still a Patient RUFUS GARLAND MD Apr 21, 2024 08:35
[2024-04-21 08:40] VITALS: O2SAT 95
--- NOTE | 2024-04-21 08:44 | DVH ---
C-ARM FLUOROSCOPY: PROCEDURE: Right hip ORIF FLUOROSCOPY TIME: 48.9 seconds DAP: 6.73 mgy FINDINGS: Spot intraoperative C arm radiographs demonstrating right hip ORIF. IMPRESSION: Please refer to surgical report for detailed findings.
--- NOTE | 2024-04-21 09:47 | ECG ---
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
--- NOTE | 2024-04-21 09:48 | ECG ---
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
[2024-04-21] MEDS: ROPIVACAINE 0.5% (5MG/ML) 20ML AMPULE IJ ONE (10:11)
[2024-04-21] MEDS: ENOXAPARIN SOD 40 MG/0.4 ML SYRINGE SC SCH (10:24)
[2024-04-21] MEDS: LACTATED RINGER'S 1,000 ML IV SCH (10:24)
[2024-04-21 11:57] LABS: Basophils # (auto) 0 10 ^3/uL (0-0.2); Basophils % (auto) 0.2 % (0.0-2.0); Eosinophils # (auto) 0 10 ^3/uL (0-0.8); Hematocrit 34.4 % (36.0-46.0); Hemoglobin 11.7 g/dL (12.2-16.2); Lymphocytes # (auto) 0.9 10 ^3/uL (0.4-5.4); Lymphocytes % (auto) 9.3 % (10.0-50.0); Mean Corpuscular Volume 88.3 fL (80.0-100.0); Monocytes # (auto) 0.6 10 ^3/uL (0-1.3); Monocytes % (auto) 6.6 % (0.0-12.0); Neutrophils # (auto) 8.2 10 ^3/uL (1.6-8.6); Neutrophils % (auto) 83.9 % (37.0-80.0); Platelet Count (auto) 212 10^3/uL (140-450); Red Blood Cells 3.89 10^6/uL (4.0-5.20); Red Cell Distribution Width 13.7 % (11.8-14.3); White Blood Cell 9.8 10^3/uL (4.4-10.8)
[2024-04-21 12:16] LABS: Alanine Aminotransferase 16 U/L (7-40); Albumin 3.8 g/dL (3.2-4.8); Alkaline Phosphatase 72 U/L (46-116); Anion Gap 8 (5-15); Aspartate Aminotransferase 23 U/L (13-40); Bilirubin, Total 0.7 mg/dL (0.2-1.0); Blood Urea Nitrogen 18 mg/dL (9-23); Calcium 9.1 mg/dL (8.7-10.4); Carbon Dioxide 25 mmol/L (20-31); Chloride 100 mmol/L (98-107); Potassium 4.2 mmol/L (3.5-5.1); Total Protein 6.4 g/dL (5.7-8.2)
[2024-04-21 12:18] LABS: Glucose 149 mg/dL (74-106); Sodium 133 mmol/L (136-145)
[2024-04-21] MEDS: SODIUM CHLOR 0.9% PF (SALINE LOCK) 10ML VIAL/SYR IV SCH (12:23)
[2024-04-21 13:00] VITALS: BP 121/69; PULSE 81; RESP 17; TEMP 98.1; O2SAT 96
[2024-04-21] MEDS: ceFAZolin 2 GM/D5W50ml 50 ML IV SCH (13:03)
--- NOTE | 2024-04-21 16:09 | DVHPN2 ---
Subjective Patient underwent right hip surgery. 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 Medications Current Medications Medications Dose Ordered Sig/Praveena Route Start Time Stop Time Status Last Admin Dose Admin Sodium Chloride 10 ml Q8HR IV 04/19/24 22:00 04/21/24 12:22 10 ML Docusate Sodium 100 mg BIDPRN PRN PO 04/19/24 20:00 04/20/24 16:58 100 MG Acetaminophen 650 mg Q6HP PRN PO 04/19/24 20:00 Acetaminophen/ Hydrocodone Bitart 1 tab Q4HP PRN PO 04/19/24 20:00 04/20/24 00:57 1 TAB Hydromorphone HCl 0.5 mg Q4HP PRN IV 04/19/24 20:00 04/20/24 20:50 0.5 MG Ondansetron HCl 4 mg Q4HP PRN IV 04/19/24 20:00 04/20/24 16:57 4 MG Amlodipine Besylate 10 mg DAILY PO 04/20/24 10:00 04/21/24 10:23 10 MG Hydralazine HCl 5 mg Q4H PRN IV 04/19/24 20:00 Pantoprazole Sodium 40 mg DAILY IV 04/20/24 10:00 04/21/24 10:23 40 MG Lactated Ringer's 1,000 ml @ 100 mls/hr Q10H IV 04/21/24 08:30 04/21/24 10:24 100 MLS/HR Sodium Chloride 10 ml Q8HR IV 04/21/24 14:00 04/21/24 12:23 10 ML Enoxaparin Sodium 40 mg DAILY SC 04/21/24 10:00 04/21/24 10:24 40 MG Acetaminophen/ Hydrocodone Bitart 1 tab Q4HP PRN PO 04/21/24 08:30 Cefazolin Sodium/ Dextrose 50 ml @ 50 mls/hr Q8HR IV 04/21/24 14:00 04/21/24 22:59 04/21/24 13:03 50 MLS/HR Laboratory Results Laboratory Tests 04/21/24 11:26 Chemistry Test 04/21/24 11:26 Albumin 3.8 g/dL (3.2-4.8) Calcium Level 9.1 mg/dL (8.7-10.4) Total Protein 6.4 g/dL (5.7-8.2) LFT Test 04/21/24 11:26 Alanine Aminotransferase (ALT) 16 U/L (7-40) Alkaline Phosphatase 72 U/L (46-116) Aspartate Amino Transferase (AST) 23 U/L (13-40) Total Bilirubin 0.7 mg/dL (0.2-1.0) Urinalysis Test 04/19/24 13:30 Urine Color Dark-yellow (Yellow) Urine Clarity Clear (Clear) Urine pH 6.5 (5.0-9.0) Urine Specific [place] 1.017 (1.001-1.035) Urine Protein 1+ (Negative) H Urine Ketones 2+ (Negative) H Urine Blood 3+ /uL (Negative) H Urine Nitrite Negative (Negative) Urine Bilirubin Negative (Negative) Urine Urobilinogen Normal mg/dL (Negative) Urine Leukocyte Esterase 1+ /uL (Negative) Urine RBC 215 /hpf (0 - 4) Urine Microscopic WBC 18 /HPF (0-5) H Urine Squamous Epithelial Cells Few /hpf (<5) Urine Bacteria None seen /hpf (None Seen) Urine Mucus Few (None Seen) Urine Glucose Normal mg/dL (Normal) Assessment/Plan Assessment/Plan 83old female with a known history of hypertension, dyslipidemia, previous history of CAD status post PCI presented to the hospital status post mechanical fall found to have 1. Acute right hip intertrochanteric fracture with mechanical fall status post closed reduction and cephalomedullary nail to proximal femur postop day 0 2. CAD status post PCI 3. Hypertension 4.dyslipidemia -pain meds as needed, DVT prophylaxis, physical therapy evaluation and treatment -discharge plan once cleared by Orthopedics. Plan discussed with: Patient, Other Date of Service: Apr 21, 2024 Billing Provider: MANA GUTIERREZ MD Common Visit Codes: [id number] INP/OBS CARE(MOD) MANA GUTIERREZ MD Apr 21, 2024 16:09
--- NOTE | 2024-04-21 20:33 | DVHPN2 ---
Progress Note - Dictate Date Seen: Apr 21, 2024 Medical Necessity Reason Pt with a Central, PICC or Fol: Yes The following are medically ne: Dowling Catheter Reason for dowling catheter: Strict I&O Subjective Pt seen and examined at bedside. On supplemental oxygen Overnight events reviewed. vital signs Vital Sign Date Time Temp Pulse Resp B/P (MAP) Pulse Ox O2 Delivery O2 Flow Rate FiO2 04/21/24 20:00 Nasal Cannula* 4 36 04/21/24 13:00 98.1 81 17 121/69 (86) 96 98.1 Total Intake and Output 04/20/24 04/20/24 04/21/24 15:00 23:00 07:00 Intake Total 118 ml 200 ml 180 ml Output Total 300 ml 400 ml Balance 118 ml -100 ml -220 ml medications Current Medications Medications Dose Ordered Sig/Praveena Route Start Time Stop Time Status Last Admin Dose Admin Sodium Chloride 10 ml Q8HR IV 04/19/24 22:00 04/21/24 12:22 10 ML Docusate Sodium 100 mg BIDPRN PRN PO 04/19/24 20:00 04/20/24 16:58 100 MG Acetaminophen 650 mg Q6HP PRN PO 04/19/24 20:00 Acetaminophen/ Hydrocodone Bitart 1 tab Q4HP PRN PO 04/19/24 20:00 04/20/24 00:57 1 TAB Hydromorphone HCl 0.5 mg Q4HP PRN IV 04/19/24 20:00 04/20/24 20:50 0.5 MG Ondansetron HCl 4 mg Q4HP PRN IV 04/19/24 20:00 04/20/24 16:57 4 MG Amlodipine Besylate 10 mg DAILY PO 04/20/24 10:00 04/21/24 10:23 10 MG Hydralazine HCl 5 mg Q4H PRN IV 04/19/24 20:00 Pantoprazole Sodium 40 mg DAILY IV 04/20/24 10:00 04/21/24 10:23 40 MG Lactated Ringer's 1,000 ml @ 100 mls/hr Q10H IV 04/21/24 08:30 04/21/24 18:38 100 MLS/HR Sodium Chloride 10 ml Q8HR IV 04/21/24 14:00 04/21/24 12:23 10 ML Enoxaparin Sodium 40 mg DAILY SC 04/21/24 10:00 04/21/24 10:24 40 MG Acetaminophen/ Hydrocodone Bitart 1 tab Q4HP PRN PO 04/21/24 08:30 Cefazolin Sodium/ Dextrose 50 ml @ 50 mls/hr Q8HR IV 04/21/24 14:00 04/21/24 22:59 04/21/24 13:03 50 MLS/HR objective Gen.: Patient lying in bed in no apparent distress. On supplemental oxygen. Head: Normocephalic, atraumatic. Eyes: EOMI/PERRLA. Ears: Normal hearing. Normal anatomy. Neck/trachea: Trachea midline, supple. Nose: Normal external anatomy. Mouth: Moist mucous membranes. Chest: Decreased air entry bilaterally. No wheezing or rhonchi. Cardiovascular: Positive S1, positive S2. Regular rate and rhythm. Abdomen: Positive bowel sounds in all 4 quadrants. Soft, non-tender, non- distended. : Deferred. Rectal: Deferred. Skin: Warm, dry. Intact. Extremities: 2+ radial pulses bilaterally. No lower extremity edema. Neuro: Awake, alert, oriented x3. No gross motor or sensory deficits. Cranial nerves II through XII intact. Gait not assessed. laboratory and microbiology Laboratory Tests 04/21/24 11:26 Test 04/21/24 11:26 Range/Units Serum Glucose 149 H 74-106 mg/dL Assessment/Plan Impression: Acute hypoxic respiratory failure Dependence on supplemental oxygen Atelectasis Right hip fracture Obesity Emphysema Likely COPD Events: s/p Ortho procedure POD #0 Increase o2 requirements post procedure. On 4 LPM via NC Taper down as tolerated. Obtain CXR in AM. Continue IS Pain control Avoid oversedation. Slight trend down in Hgb Continue to monitor closely. Slight hyponatremia, Na 133. Monitor sodium closely. Accucheks, ISS Cont Abx, Cefazolin IVF LR at 100 mL/hr. Received Decadron 10 mg IVP x 1. Rest of plan as outlined below. Plan: Supplemental oxygen Titrate to keep O2 sats above 92%. Taper O2 as tolerated. Patient desaturates on room air. Incentive spirometry Pain control Avoid oversedation Ortho recs appreciated Diet and lifestyle modifications for weight reduction Obesity - complicates all care Monitor renal function. Monitor electrolytes. Supplement as necessary. Monitor ins and outs. Recommend outpatient PFTs to assess pulmonary function. GI Prophylaxis - Pronix. DVT prophylaxis. Prognosis: Poor given patient's multiple co-morbidities. Rest of plan per hospitalist and other consultants. Thank you, Dr. Chávez for allowing me to participate in this patient's care. Further recommendations will depend on the patient's clinical course. Please do not hesitate to contact me if you have any questions or concerns. This medical document was created using an electronic medical record system with [employer] dictation system. Although these documentations are being carefully reviewed, there may still be some phonetic and typographical changes. The errors are purely typographical, due to imperfection on the software program, and do not reflect any compromise in the patient's medical care. Plan discussed with: Patient, Other (RN, MD) LORI CROWE MD Apr 21, 2024 20:33
[2024-04-21 21:00] VITALS: BP 127/68; PULSE 89; RESP 17; TEMP 98.8; O2SAT 95
[2024-04-21] MEDS: ACETAMINOPHEN 325 MG TAB PO PRN (21:23)
[2024-04-22 01:00] VITALS: BP 136/76; PULSE 86; RESP 18; TEMP 97.8; O2SAT 94
[2024-04-22 05:00] VITALS: BP 153/79; PULSE 86; RESP 17; TEMP 97.7; O2SAT 96
--- NOTE | 2024-04-22 06:41 | DVH ---
EXAM: XR Chest, 1 View CLINICAL INDICATION: Interval changes, increase in o2 requirements. TECHNIQUE: Frontal view of the chest. COMPARISON: XY CHEST XRAY 1 VIEW on DOS: 04/20/24, XY CHEST PORTABLE on DOS: 04/19/24 FINDINGS: LUNGS AND PLEURAL SPACES: Unremarkable. No consolidation. No pneumothorax. HEART: Unremarkable. No cardiomegaly. MEDIASTINUM: Unremarkable. Normal mediastinal contour. BONES/JOINTS: Unremarkable. No acute fracture. OTHER FINDINGS: . None. . IMPRESSION: No acute cardiopulmonary process.
[2024-04-22 08:10] LABS: Basophils # (auto) 0 10 ^3/uL (0-0.2); Basophils % (auto) 0.2 % (0.0-2.0); Eosinophils # (auto) 0 10 ^3/uL (0-0.8); Eosinophils % (auto) 0.1 % (0.0-7.0); Hematocrit 30.2 % (36.0-46.0); Hemoglobin 10.1 g/dL (12.2-16.2); Lymphocytes # (auto) 1.9 10 ^3/uL (0.4-5.4); Lymphocytes % (auto) 26.3 % (10.0-50.0); Mean Corpuscular Hemoglobin 29.8 pg (28.0-32.0); Mean Corpuscular Hgb Conc. 33.6 g/dL (32.0-36.0); Mean Corpuscular Volume 88.9 fL (80.0-100.0); Monocytes # (auto) 0.9 10 ^3/uL (0-1.3); Monocytes % (auto) 12.9 % (0.0-12.0); Neutrophils # (auto) 4.4 10 ^3/uL (1.6-8.6); Neutrophils % (auto) 60.5 % (37.0-80.0); Platelet Count (auto) 203 10^3/uL (140-450); Red Blood Cells 3.39 10^6/uL (4.0-5.20); Red Cell Distribution Width 13.5 % (11.8-14.3); White Blood Cell 7.2 10^3/uL (4.4-10.8)
[2024-04-22 08:31] LABS: Alanine Aminotransferase 13 U/L (7-40); Alkaline Phosphatase 66 U/L (46-116); Anion Gap 9 (5-15); BUN/Creatinine Ratio 26.3 (10.0-20.0); Calcium 9.1 mg/dL (8.7-10.4); Carbon Dioxide 25 mmol/L (20-31); Chloride 98 mmol/L (98-107); Potassium 4.2 mmol/L (3.5-5.1)
[2024-04-22 08:33] LABS: Albumin 3.8 g/dL (3.2-4.8); Aspartate Aminotransferase 19 U/L (13-40); Bilirubin, Total 0.5 mg/dL (0.2-1.0); Total Protein 6.3 g/dL (5.7-8.2)
[2024-04-22 08:34] LABS: Blood Urea Nitrogen 25 mg/dL (9-23); Glucose 108 mg/dL (74-106); Sodium 132 mmol/L (136-145)
[2024-04-22 09:00] VITALS: BP 130/61; PULSE 70; RESP 21; TEMP 98.5; O2SAT 96
--- NOTE | 2024-04-22 12:18 | DVHPN2 ---
Progress Note - Dictate Date Seen: Apr 22, 2024 Medical Necessity Reason Pt with a Central, PICC or Fol: No The following are medically ne: Dowling Catheter Reason for dowling catheter: Strict I&O Subjective No unusual postop complaints vital signs Vital Sign Date Time Temp Pulse Resp B/P (MAP) Pulse Ox O2 Delivery O2 Flow Rate FiO2 04/22/24 09:36 136/61 04/22/24 09:00 98.5 70 21 96 98.5 04/22/24 08:00 Nasal Cannula* 2 28 Total Intake and Output 04/21/24 04/21/24 04/22/24 15:00 23:00 07:00 Intake Total 290 ml 1380 ml Output Total 600 ml 250 ml Balance -310 ml 1130 ml medications Current Medications Medications Dose Ordered Sig/Praveena Route Start Time Stop Time Status Last Admin Dose Admin Sodium Chloride 10 ml Q8HR IV 04/19/24 22:00 04/22/24 05:31 10 ML Docusate Sodium 100 mg BIDPRN PRN PO 04/19/24 20:00 04/20/24 16:58 100 MG Acetaminophen 650 mg Q6HP PRN PO 04/19/24 20:00 04/22/24 09:48 650 MG Acetaminophen/ Hydrocodone Bitart 1 tab Q4HP PRN PO 04/19/24 20:00 04/20/24 00:57 1 TAB Hydromorphone HCl 0.5 mg Q4HP PRN IV 04/19/24 20:00 04/20/24 20:50 0.5 MG Ondansetron HCl 4 mg Q4HP PRN IV 04/19/24 20:00 04/20/24 16:57 4 MG Amlodipine Besylate 10 mg DAILY PO 04/20/24 10:00 04/22/24 09:36 10 MG Hydralazine HCl 5 mg Q4H PRN IV 04/19/24 20:00 Pantoprazole Sodium 40 mg DAILY IV 04/20/24 10:00 04/22/24 09:35 40 MG Lactated Ringer's 1,000 ml @ 100 mls/hr Q10H IV 04/21/24 08:30 04/22/24 04:12 100 MLS/HR Sodium Chloride 10 ml Q8HR IV 04/21/24 14:00 04/21/24 21:23 10 ML Enoxaparin Sodium 40 mg DAILY SC 04/21/24 10:00 04/22/24 09:35 40 MG Acetaminophen/ Hydrocodone Bitart 1 tab Q4HP PRN PO 04/21/24 08:30 objective Alert and oriented x4 Dressing intact No calf edema or tenderness Distal neurovascularly intact laboratory and microbiology Laboratory Tests 04/22/24 06:46 Test 04/22/24 06:46 Range/Units Serum Glucose 108 H 74-106 mg/dL Assessment/Plan Acute right proximal femur unstable intertrochanteric fracture postop day 1. s/p cephalomedullary nail right hip Acute expected postop blood loss anemia Plan: Physical therapy with weight-bearing as tolerated Local wound care DVT prophylaxis as per hospitalist Outpatient follow up with Orthopedics in about 3-4 weeks with x-rays DC ken 10-14 days Orthopedically stable for transfer when medically cleared Plan discussed with: Patient JOANNEVIDHYAMAG MD Apr 22, 2024 12:18
[2024-04-22 13:00] VITALS: BP 120/67; PULSE 82; RESP 20; TEMP 97.8; O2SAT 96
--- NOTE | 2024-04-22 16:18 | DVHDS2 ---
Discharge Summary Date of Admission Apr 19, 2024 at 19:48 Date of Discharge: Apr 22, 2024 Labs/Diagnostic Data: Laboratory Results Test 04/22/24 06:46 04/19/24 13:41 04/19/24 13:30 White Blood Count 7.2 10^3/uL (4.4-10.8) Red Blood Count 3.39 10^6/uL (4.0-5.20) Hemoglobin 10.1 g/dL (12.2-16.2) Hematocrit 30.2 % (36.0-46.0) Mean Corpuscular Volume 88.9 fL (80.0-100.0) Mean Corpuscular Hemoglobin 29.8 pg (28.0-32.0) Mean Corpuscular Hemoglobin Concent 33.6 g/dL (32.0-36.0) Red Cell Distribution Width 13.5 % (11.8-14.3) Platelet Count 203 10^3/uL (140-450) Mean Platelet Volume 8.5 fL (6.9-10.8) Neutrophils (%) (Auto) 60.5 % (37.0-80.0) Lymphocytes (%) (Auto) 26.3 % (10.0-50.0) Monocytes (%) (Auto) 12.9 % (0.0-12.0) Eosinophils (%) (Auto) 0.1 % (0.0-7.0) Basophils (%) (Auto) 0.2 % (0.0-2.0) Neutrophils # (Auto) 4.4 10 ^3/uL (1.6-8.6) Lymphocytes # (Auto) 1.9 10 ^3/uL (0.4-5.4) Monocytes # (Auto) 0.9 10 ^3/uL (0-1.3) Eosinophils # (Auto) 0 10 ^3/uL (0-0.8) Basophils # (Auto) 0 10 ^3/uL (0-0.2) Nucleated Red Blood Cells 0.0 % Sodium Level 132 mmol/L (136-145) Potassium Level 4.2 mmol/L (3.5-5.1) Chloride Level 98 mmol/L (98-107) Carbon Dioxide Level 25 mmol/L (20-31) Anion Gap 9 (5-15) Blood Urea Nitrogen 25 mg/dL (9-23) Creatinine 0.95 mg/dL (0.550-1.02) Glomerular Filtration Rate Calc 59 mL/min (>90) BUN/Creatinine Ratio 26.3 (10.0-20.0) Serum Glucose 108 mg/dL (74-106) Calcium Level 9.1 mg/dL (8.7-10.4) Total Bilirubin 0.5 mg/dL (0.2-1.0) Aspartate Amino Transferase (AST) 19 U/L (13-40) Alanine Aminotransferase (ALT) 13 U/L (7-40) Alkaline Phosphatase 66 U/L (46-116) Total Protein 6.3 g/dL (5.7-8.2) Albumin 3.8 g/dL (3.2-4.8) Prothrombin Time 9.9 sec (9.3-11.8) Prothrombin Time INR 0.93 (0.9-1.15) Activated Partial Thromboplast Time 24.5 SEC (24.5-34.5) Urine Color Dark-yellow (Yellow) Urine Clarity Clear (Clear) Urine pH 6.5 (5.0-9.0) Urine Specific [place] 1.017 (1.001-1.035) Urine Protein 1+ (Negative) Urine Ketones 2+ (Negative) Urine Blood 3+ /uL (Negative) Urine Nitrite Negative (Negative) Urine Bilirubin Negative (Negative) Urine Urobilinogen Normal mg/dL (Negative) Urine Leukocyte Esterase 1+ /uL (Negative) Urine RBC 215 /hpf (0 - 4) Urine Microscopic WBC 18 /HPF (0-5) Urine Squamous Epithelial Cells Few /hpf (<5) Urine Bacteria None seen /hpf (None Seen) Urine Mucus Few (None Seen) Urine Glucose Normal mg/dL (Normal) Other Laboratory Tests 04/22/24 06:46 Condition at Discharge: Stable Final Diagnosis/Problems List 83old female with a known history of hypertension, dyslipidemia, previous history of CAD status post PCI presented to the hospital status post mechanical fall found to have 1. Acute right hip intertrochanteric fracture with mechanical fall status post closed reduction and cephalomedullary nail to proximal femur postop day 1 2. CAD status post PCI 3. Hypertension 4.dyslipidemia [facility]charge Will this Physician continue t: No Discharge Instruct/Medications Diet: Cardiac 2g Na,low cholest Activity: See Comment Activity comment: Weight-bearing on the right lower extremity as tolerated with the physical therapy and occupational therapy. Follow Up/Referral: Follow up with the PCP in one week Follow up with the Orthopedics in one week Medications: As reconciled, resume home medication including Plavix. Discharge Statement: "Patient was advised to return to the ER or call 911 if any headaches, dizziness, shortness of breath, chest pain, abdominal pain, bleeding, fevers, or worsening of medical condition. Patient was counseled about treatment plan, medications, possible side effects, patientverbalized understanding. All questions were answered to the best of my ability. This discharge took greater then 30 minutes in planning, reviewing documentation, counseling the patient, and discussing with other team members." ASSESSMENT ASSESSMENT Assessment 83old female with a known history of hypertension, dyslipidemia, previous history of CAD status post PCI presented to the hospital status post mechanical fall found to have 1. Acute right hip intertrochanteric fracture with mechanical fall status post closed reduction and cephalomedullary nail to proximal femur postop day 1 2. CAD status post PCI 3. Hypertension 4.dyslipidemia MANA GUTIERREZ MD Apr 22, 2024 16:18
[2024-04-22 17:00] VITALS: BP 127/58; PULSE 78; RESP 18; TEMP 99.2; O2SAT 95
[2024-04-22 21:00] VITALS: BP 145/67; PULSE 85; RESP 18; TEMP 96.8; O2SAT 96
--- NOTE | 2024-04-22 22:10 | DVHPN2 ---
Progress Note - Dictate Date Seen: Apr 22, 2024 Medical Necessity Reason Pt with a Central, PICC or Fol: No Subjective Pt seen and examined at bedside. On supplemental oxygen Overnight events reviewed. vital signs Vital Sign Date Time Temp Pulse Resp B/P (MAP) Pulse Ox O2 Delivery O2 Flow Rate FiO2 04/22/24 21:00 96.8 85 18 145/67 (93) 96 96.8 04/22/24 08:00 Nasal Cannula* 2 28 Total Intake and Output 04/21/24 04/21/24 04/22/24 15:00 23:00 07:00 Intake Total 290 ml 1380 ml Output Total 600 ml 250 ml Balance -310 ml 1130 ml medications Current Medications Medications Dose Ordered Sig/Praveena Route Start Time Stop Time Status Last Admin Dose Admin Sodium Chloride 10 ml Q8HR IV 04/19/24 22:00 04/22/24 13:18 10 ML Docusate Sodium 100 mg BIDPRN PRN PO 04/19/24 20:00 04/20/24 16:58 100 MG Acetaminophen 650 mg Q6HP PRN PO 04/19/24 20:00 04/22/24 09:48 650 MG Acetaminophen/ Hydrocodone Bitart 1 tab Q4HP PRN PO 04/19/24 20:00 04/22/24 14:24 1 TAB Hydromorphone HCl 0.5 mg Q4HP PRN IV 04/19/24 20:00 04/20/24 20:50 0.5 MG Ondansetron HCl 4 mg Q4HP PRN IV 04/19/24 20:00 04/20/24 16:57 4 MG Amlodipine Besylate 10 mg DAILY PO 04/20/24 10:00 04/22/24 09:36 10 MG Hydralazine HCl 5 mg Q4H PRN IV 04/19/24 20:00 Pantoprazole Sodium 40 mg DAILY IV 04/20/24 10:00 04/22/24 09:35 40 MG Lactated Ringer's 1,000 ml @ 100 mls/hr Q10H IV 04/21/24 08:30 04/22/24 04:12 100 MLS/HR Sodium Chloride 10 ml Q8HR IV 04/21/24 14:00 04/22/24 13:19 10 ML Enoxaparin Sodium 40 mg DAILY SC 04/21/24 10:00 04/22/24 09:35 40 MG Acetaminophen/ Hydrocodone Bitart 1 tab Q4HP PRN PO 04/21/24 08:30 objective Gen.: Patient lying in bed in no apparent distress. On supplemental oxygen. Head: Normocephalic, atraumatic. Eyes: EOMI/PERRLA. Ears: Normal hearing. Normal anatomy. Neck/trachea: Trachea midline, supple. Nose: Normal external anatomy. Mouth: Moist mucous membranes. Chest: Decreased air entry bilaterally. No wheezing or rhonchi. Cardiovascular: Positive S1, positive S2. Regular rate and rhythm. Abdomen: Positive bowel sounds in all 4 quadrants. Soft, non-tender, non- distended. : Deferred. Rectal: Deferred. Skin: Warm, dry. Intact. Extremities: 2+ radial pulses bilaterally. No lower extremity edema. Neuro: Awake, alert, oriented x3. No gross motor or sensory deficits. Cranial nerves II through XII intact. Gait not assessed. laboratory and microbiology Laboratory Tests 04/22/24 06:46 Test 04/22/24 06:46 Range/Units Serum Glucose 108 H 74-106 mg/dL Assessment/Plan Impression: Acute hypoxic respiratory failure Dependence on supplemental oxygen Atelectasis Right hip fracture Obesity Emphysema Likely COPD Events: s/p Ortho procedure POD #0 Increased o2 requirements post procedure. Remains on 4 LPM via NC Taper down as tolerated. CXR reviewed; no acute opacities, consolidation or pneumothorax. Continue IS for atelectasis Pain control Avoid oversedation. [place] was removed. Slight trend down in Hgb Continue to monitor closely. Slight hyponatremia, Na 132. Monitor sodium closely. Cont Abx, Cefazolin Physical therapy Disposition to SNF. Rest of plan as outlined below. Plan: Supplemental oxygen Titrate to keep O2 sats above 92%. Taper O2 as tolerated. Patient desaturates on room air. Incentive spirometry Pain control Avoid oversedation Ortho recs appreciated Accu-Cheks, ISS PRN. Diet and lifestyle modifications for weight reduction Obesity - complicates all care Monitor renal function. Monitor electrolytes. Supplement as necessary. Monitor ins and outs. Recommend outpatient PFTs to assess pulmonary function. GI Prophylaxis - Pronix. DVT prophylaxis. Prognosis: Poor given patient's multiple co-morbidities. Rest of plan per hospitalist and other consultants. Thank you, Dr. Chávez for allowing me to participate in this patient's care. Further recommendations will depend on the patient's clinical course. Please do not hesitate to contact me if you have any questions or concerns. This medical document was created using an electronic medical record system with [employer] dictation system. Although these documentations are being carefully reviewed, there may still be some phonetic and typographical changes. The errors are purely typographical, due to imperfection on the software program, and do not reflect any compromise in the patient's medical care. Plan discussed with: Patient, Other (EVANGELISTA Austin) LORI CROWE MD Apr 22, 2024 22:10
[2024-04-23] VITALS (8 sets, daily range): BP systolic 126–144; BP diastolic 60–75; PULSE 76–101; RESP 17–18; TEMP 97.1–98.6; O2SAT 96–100
[2024-04-23 08:38] LABS: Basophils # (auto) 0 10 ^3/uL (0-0.2); Basophils % (auto) 0.2 % (0.0-2.0); Eosinophils # (auto) 0 10 ^3/uL (0-0.8); Eosinophils % (auto) 0.4 % (0.0-7.0); Hematocrit 29.2 % (36.0-46.0); Hemoglobin 9.9 g/dL (12.2-16.2); Lymphocytes # (auto) 2.9 10 ^3/uL (0.4-5.4); Lymphocytes % (auto) 39.3 % (10.0-50.0); Mean Corpuscular Hemoglobin 29.8 pg (28.0-32.0); Mean Corpuscular Hgb Conc. 33.9 g/dL (32.0-36.0); Mean Corpuscular Volume 88.1 fL (80.0-100.0); Monocytes # (auto) 0.8 10 ^3/uL (0-1.3); Monocytes % (auto) 11.4 % (0.0-12.0); Neutrophils # (auto) 3.6 10 ^3/uL (1.6-8.6); Neutrophils % (auto) 48.7 % (37.0-80.0); Platelet Count (auto) 206 10^3/uL (140-450); Red Blood Cells 3.31 10^6/uL (4.0-5.20); Red Cell Distribution Width 13.6 % (11.8-14.3); White Blood Cell 7.3 10^3/uL (4.4-10.8)
[2024-04-23 09:14] LABS: Alanine Aminotransferase 13 U/L (7-40); Alkaline Phosphatase 64 U/L (46-116); Anion Gap 10 (5-15); Blood Urea Nitrogen 16 mg/dL (9-23); Calcium 9.1 mg/dL (8.7-10.4); Carbon Dioxide 24 mmol/L (20-31); Chloride 101 mmol/L (98-107); Glucose 98 mg/dL (74-106); Potassium 3.8 mmol/L (3.5-5.1)
[2024-04-23 09:15] LABS: Albumin 3.5 g/dL (3.2-4.8)
[2024-04-23 09:16] LABS: Aspartate Aminotransferase 20 U/L (13-40); Bilirubin, Total 0.5 mg/dL (0.2-1.0); Total Protein 6.3 g/dL (5.7-8.2)
[2024-04-23 09:32] LABS: Sodium 135 mmol/L (136-145)
--- NOTE | 2024-04-23 17:07 | DVHDS2 ---
Discharge Summary Date of Admission Apr 19, 2024 at 19:48 Date of Discharge: Apr 22, 2024 Labs/Diagnostic Data: Laboratory Results Test 04/23/24 07:53 04/19/24 13:41 04/19/24 13:30 White Blood Count 7.3 10^3/uL (4.4-10.8) Red Blood Count 3.31 10^6/uL (4.0-5.20) Hemoglobin 9.9 g/dL (12.2-16.2) Hematocrit 29.2 % (36.0-46.0) Mean Corpuscular Volume 88.1 fL (80.0-100.0) Mean Corpuscular Hemoglobin 29.8 pg (28.0-32.0) Mean Corpuscular Hemoglobin Concent 33.9 g/dL (32.0-36.0) Red Cell Distribution Width 13.6 % (11.8-14.3) Platelet Count 206 10^3/uL (140-450) Mean Platelet Volume 7.7 fL (6.9-10.8) Neutrophils (%) (Auto) 48.7 % (37.0-80.0) Lymphocytes (%) (Auto) 39.3 % (10.0-50.0) Monocytes (%) (Auto) 11.4 % (0.0-12.0) Eosinophils (%) (Auto) 0.4 % (0.0-7.0) Basophils (%) (Auto) 0.2 % (0.0-2.0) Neutrophils # (Auto) 3.6 10 ^3/uL (1.6-8.6) Lymphocytes # (Auto) 2.9 10 ^3/uL (0.4-5.4) Monocytes # (Auto) 0.8 10 ^3/uL (0-1.3) Eosinophils # (Auto) 0 10 ^3/uL (0-0.8) Basophils # (Auto) 0 10 ^3/uL (0-0.2) Nucleated Red Blood Cells 0.0 % Sodium Level 135 mmol/L (136-145) Potassium Level 3.8 mmol/L (3.5-5.1) Chloride Level 101 mmol/L (98-107) Carbon Dioxide Level 24 mmol/L (20-31) Anion Gap 10 (5-15) Blood Urea Nitrogen 16 mg/dL (9-23) Creatinine 0.64 mg/dL (0.550-1.02) Glomerular Filtration Rate Calc 88 mL/min (>90) BUN/Creatinine Ratio 25.0 (10.0-20.0) Serum Glucose 98 mg/dL (74-106) Calcium Level 9.1 mg/dL (8.7-10.4) Total Bilirubin 0.5 mg/dL (0.2-1.0) Aspartate Amino Transferase (AST) 20 U/L (13-40) Alanine Aminotransferase (ALT) 13 U/L (7-40) Alkaline Phosphatase 64 U/L (46-116) Total Protein 6.3 g/dL (5.7-8.2) Albumin 3.5 g/dL (3.2-4.8) Prothrombin Time 9.9 sec (9.3-11.8) Prothrombin Time INR 0.93 (0.9-1.15) Activated Partial Thromboplast Time 24.5 SEC (24.5-34.5) Urine Color Dark-yellow (Yellow) Urine Clarity Clear (Clear) Urine pH 6.5 (5.0-9.0) Urine Specific [place] 1.017 (1.001-1.035) Urine Protein 1+ (Negative) Urine Ketones 2+ (Negative) Urine Blood 3+ /uL (Negative) Urine Nitrite Negative (Negative) Urine Bilirubin Negative (Negative) Urine Urobilinogen Normal mg/dL (Negative) Urine Leukocyte Esterase 1+ /uL (Negative) Urine RBC 215 /hpf (0 - 4) Urine Microscopic WBC 18 /HPF (0-5) Urine Squamous Epithelial Cells Few /hpf (<5) Urine Bacteria None seen /hpf (None Seen) Urine Mucus Few (None Seen) Urine Glucose Normal mg/dL (Normal) Other Laboratory Tests 04/23/24 07:53 Condition at Discharge: Stable Final Diagnosis/Problems List 83old female with a known history of hypertension, dyslipidemia, previous history of CAD status post PCI presented to the hospital status post mechanical fall found to have 1. Acute right hip intertrochanteric fracture with mechanical fall status post closed reduction and cephalomedullary nail to proximal femur postop day 1 2. CAD status post PCI 3. Hypertension 4.dyslipidemia Discharge Disposition: Assisted Facility SNF Discharge Will this Physician continue t: No Discharge Instruct/Medications Diet: Cardiac 2g Na,low cholest Activity: See Comment Activity comment: Weight-bearing on the right lower extremity as tolerated with the physical therapy and occupational therapy. Follow Up/Referral: Follow up with the PCP in one week Follow up with the Orthopedics in one week Medications: As reconciled, resume home medication including Plavix. Discharge Statement: "Patient was advised to return to the ER or call 911 if any headaches, dizziness, shortness of breath, chest pain, abdominal pain, bleeding, fevers, or worsening of medical condition. Patient was counseled about treatment plan, medications, possible side effects, patientverbalized understanding. All questions were answered to the best of my ability. This discharge took greater then 30 minutes in planning, reviewing documentation, counseling the patient, and discussing with other team members." ASSESSMENT ASSESSMENT Assessment 83old female with a known history of hypertension, dyslipidemia, previous history of CAD status post PCI presented to the hospital status post mechanical fall found to have 1. Acute right hip intertrochanteric fracture with mechanical fall status post closed reduction and cephalomedullary nail to proximal femur postop day 1 2. CAD status post PCI 3. Hypertension 4.dyslipidemia MANA GUTIERREZ MD Apr 23, 2024 17:07
--- NOTE | 2024-04-23 17:07 | DVHPN2 ---
Subjective Patient was complaining of urinary incontinence, pain is better controlled. 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 Medications Current Medications Medications Dose Ordered Sig/Praveena Route Start Time Stop Time Status Last Admin Dose Admin Sodium Chloride 10 ml Q8HR IV 04/19/24 22:00 04/23/24 14:00 10 ML Docusate Sodium 100 mg BIDPRN PRN PO 04/19/24 20:00 04/20/24 16:58 100 MG Acetaminophen 650 mg Q6HP PRN PO 04/19/24 20:00 04/23/24 01:30 650 MG Acetaminophen/ Hydrocodone Bitart 1 tab Q4HP PRN PO 04/19/24 20:00 04/23/24 09:22 1 TAB Hydromorphone HCl 0.5 mg Q4HP PRN IV 04/19/24 20:00 04/20/24 20:50 0.5 MG Ondansetron HCl 4 mg Q4HP PRN IV 04/19/24 20:00 04/20/24 16:57 4 MG Amlodipine Besylate 10 mg DAILY PO 04/20/24 10:00 04/23/24 09:21 10 MG Hydralazine HCl 5 mg Q4H PRN IV 04/19/24 20:00 Pantoprazole Sodium 40 mg DAILY IV 04/20/24 10:00 04/23/24 09:20 40 MG Lactated Ringer's 1,000 ml @ 100 mls/hr Q10H IV 04/21/24 08:30 04/23/24 09:20 100 MLS/HR Sodium Chloride 10 ml Q8HR IV 04/21/24 14:00 04/23/24 06:00 10 ML Enoxaparin Sodium 40 mg DAILY SC 04/21/24 10:00 04/23/24 09:20 40 MG Acetaminophen/ Hydrocodone Bitart 1 tab Q4HP PRN PO 04/21/24 08:30 Laboratory Results Laboratory Tests 04/23/24 07:53 Chemistry Test 04/23/24 07:53 Albumin 3.5 g/dL (3.2-4.8) Calcium Level 9.1 mg/dL (8.7-10.4) Total Protein 6.3 g/dL (5.7-8.2) LFT Test 04/23/24 07:53 Alanine Aminotransferase (ALT) 13 U/L (7-40) Alkaline Phosphatase 64 U/L (46-116) Aspartate Amino Transferase (AST) 20 U/L (13-40) Total Bilirubin 0.5 mg/dL (0.2-1.0) Urinalysis Test 04/19/24 13:30 Urine Color Dark-yellow (Yellow) Urine Clarity Clear (Clear) Urine pH 6.5 (5.0-9.0) Urine Specific [place] 1.017 (1.001-1.035) Urine Protein 1+ (Negative) H Urine Ketones 2+ (Negative) H Urine Blood 3+ /uL (Negative) H Urine Nitrite Negative (Negative) Urine Bilirubin Negative (Negative) Urine Urobilinogen Normal mg/dL (Negative) Urine Leukocyte Esterase 1+ /uL (Negative) Urine RBC 215 /hpf (0 - 4) Urine Microscopic WBC 18 /HPF (0-5) H Urine Squamous Epithelial Cells Few /hpf (<5) Urine Bacteria None seen /hpf (None Seen) Urine Mucus Few (None Seen) Urine Glucose Normal mg/dL (Normal) Assessment/Plan Assessment/Plan 83old female with a known history of hypertension, dyslipidemia, previous history of CAD status post PCI presented to the hospital status post mechanical fall found to have 1. Acute right hip intertrochanteric fracture with mechanical fall status post closed reduction and cephalomedullary nail to proximal femur postop day 1 2. CAD status post PCI 3. Hypertension 4.dyslipidemia -pain meds as needed, DVT prophylaxis, physical therapy evaluation and treatment -discharge plan once cleared by Orthopedics. Plan discussed with: Patient My Orders Orders - MANA GUTIERREZ MD Procedure Category Date Status Time * Frozen Pie Maker CONS 04/23/24 Transmitted Consult Date of Service: Apr 22, 2024 Billing Provider: MANA GUTIERREZ MD Common Visit Codes: [id number] INP/OBS CARE(MOD) MANA GUTIERREZ MD Apr 23, 2024 17:06
--- NOTE | 2024-04-23 23:43 | DVHPN2 ---
Progress Note - Dictate Date Seen: Apr 23, 2024 Medical Necessity Reason Pt with a Central, PICC or Fol: No Subjective Pt seen and examined at bedside. On supplemental oxygen Overnight events reviewed. vital signs Vital Sign Date Time Temp Pulse Resp B/P (MAP) Pulse Ox O2 Delivery O2 Flow Rate FiO2 04/23/24 21:00 98.0 78 18 127/66 (86) 98 98.0 04/23/24 19:30 Nasal Cannula* 2 28 Total Intake and Output 04/22/24 04/22/24 04/23/24 15:00 23:00 07:00 Intake Total 1580 ml 800 ml Output Total 700 ml 250 ml Balance -700 ml 1330 ml 800 ml medications Current Medications Medications Dose Ordered Sig/Praveena Route Start Time Stop Time Status Last Admin Dose Admin Sodium Chloride 10 ml Q8HR IV 04/19/24 22:00 04/23/24 14:00 10 ML Docusate Sodium 100 mg BIDPRN PRN PO 04/19/24 20:00 04/20/24 16:58 100 MG Acetaminophen 650 mg Q6HP PRN PO 04/19/24 20:00 04/23/24 01:30 650 MG Acetaminophen/ Hydrocodone Bitart 1 tab Q4HP PRN PO 04/19/24 20:00 04/23/24 18:07 1 TAB Hydromorphone HCl 0.5 mg Q4HP PRN IV 04/19/24 20:00 04/20/24 20:50 0.5 MG Ondansetron HCl 4 mg Q4HP PRN IV 04/19/24 20:00 04/20/24 16:57 4 MG Amlodipine Besylate 10 mg DAILY PO 04/20/24 10:00 04/23/24 09:21 10 MG Hydralazine HCl 5 mg Q4H PRN IV 04/19/24 20:00 Pantoprazole Sodium 40 mg DAILY IV 04/20/24 10:00 04/23/24 09:20 40 MG Lactated Ringer's 1,000 ml @ 100 mls/hr Q10H IV 04/21/24 08:30 04/23/24 09:20 100 MLS/HR Sodium Chloride 10 ml Q8HR IV 04/21/24 14:00 04/23/24 06:00 10 ML Enoxaparin Sodium 40 mg DAILY SC 04/21/24 10:00 04/23/24 09:20 40 MG Acetaminophen/ Hydrocodone Bitart 1 tab Q4HP PRN PO 04/21/24 08:30 objective Gen.: Patient lying in bed in no apparent distress. On supplemental oxygen. Head: Normocephalic, atraumatic. Eyes: EOMI/PERRLA. Ears: Normal hearing. Normal anatomy. Neck/trachea: Trachea midline, supple. Nose: Normal external anatomy. Mouth: Moist mucous membranes. Chest: Decreased air entry bilaterally. No wheezing or rhonchi. Cardiovascular: Positive S1, positive S2. Regular rate and rhythm. Abdomen: Positive bowel sounds in all 4 quadrants. Soft, non-tender, non- distended. : Deferred. Rectal: Deferred. Skin: Warm, dry. Intact. Extremities: 2+ radial pulses bilaterally. No lower extremity edema. Neuro: Awake, alert, oriented x3. No gross motor or sensory deficits. Cranial nerves II through XII intact. Gait not assessed. laboratory and microbiology Laboratory Tests 04/23/24 07:53 Test 04/23/24 07:53 Range/Units Serum Glucose 98 74-106 mg/dL Assessment/Plan Impression: Acute hypoxic respiratory failure Dependence on supplemental oxygen Atelectasis Right hip fracture Obesity Emphysema Likely COPD Events: Remains on supplemental oxygen On 3 LPM via [place] Improving O2 requirements Taper down as tolerated. Continue IS for atelectasis Completed antibiotics Head of bed elevation Aspiration precautions Pain control Avoid oversedation. Slight trend down in Hgb Continue to monitor closely. Hyponatremia, improving - Na 135. Monitor sodium closely. Physical therapy Disposition to SNF. Dispo per hospitalist. Awaiting placement Rest of plan as outlined below. Plan: Supplemental oxygen Titrate to keep O2 sats above 92%. Patient desaturates on room air. Incentive spirometry Pain control Avoid oversedation Ortho recs appreciated Accu-Cheks, ISS PRN. Diet and lifestyle modifications for weight reduction Obesity - complicates all care Monitor renal function. Monitor electrolytes. Supplement as necessary. Monitor ins and outs. Recommend outpatient PFTs to assess pulmonary function. GI Prophylaxis - Pronix. DVT prophylaxis. Prognosis: Guarded given patient's multiple co-morbidities. Rest of plan per hospitalist and other consultants. Thank you, Dr. Chávez for allowing me to participate in this patient's care. Further recommendations will depend on the patient's clinical course. Please do not hesitate to contact me if you have any questions or concerns. This medical document was created using an electronic medical record system with locr computerized dictation system. Although these documentations are being carefully reviewed, there may still be some phonetic and typographical changes. The errors are purely typographical, due to imperfection on the software program, and do not reflect any compromise in the patient's medical care. Plan discussed with: Patient, Other (EVANGELISTA Perrin) LORI CROWE MD Apr 23, 2024 23:43
[2024-04-24] VITALS (7 sets, daily range): BP systolic 115–146; BP diastolic 63–71; PULSE 78–95; RESP 16–19; TEMP 36.5; O2SAT 96–100
[2024-04-24 07:06] LABS: Basophils # (auto) 0 10 ^3/uL (0-0.2); Basophils % (auto) 0.5 % (0.0-2.0); Eosinophils # (auto) 0 10 ^3/uL (0-0.8); Eosinophils % (auto) 0.8 % (0.0-7.0); Hematocrit 26.4 % (36.0-46.0); Lymphocytes % (auto) 38.6 % (10.0-50.0); Mean Corpuscular Hemoglobin 29.9 pg (28.0-32.0); Mean Corpuscular Hgb Conc. 34.1 g/dL (32.0-36.0); Mean Corpuscular Volume 87.7 fL (80.0-100.0); Monocytes # (auto) 0.6 10 ^3/uL (0-1.3); Monocytes % (auto) 11.9 % (0.0-12.0); Neutrophils # (auto) 2.5 10 ^3/uL (1.6-8.6); Neutrophils % (auto) 48.2 % (37.0-80.0); Nucleated Red Blood Cells % 0.1 %; Platelet Count (auto) 207 10^3/uL (140-450); Red Blood Cells 3.01 10^6/uL (4.0-5.20); Red Cell Distribution Width 13.5 % (11.8-14.3); White Blood Cell 5.2 10^3/uL (4.4-10.8)
[2024-04-24 07:15] LABS: Alanine Aminotransferase 11 U/L (7-40); Albumin 3.6 g/dL (3.2-4.8); Alkaline Phosphatase 65 U/L (46-116); Anion Gap 6 (5-15); Aspartate Aminotransferase 20 U/L (13-40); BUN/Creatinine Ratio 21.1 (10.0-20.0); Blood Urea Nitrogen 12 mg/dL (9-23); Carbon Dioxide 30 mmol/L (20-31); Chloride 100 mmol/L (98-107); Glucose 102 mg/dL (74-106); Potassium 3.9 mmol/L (3.5-5.1)
[2024-04-24 07:16] LABS: Bilirubin, Total 0.5 mg/dL (0.2-1.0)
[2024-04-24 07:21] LABS: Sodium 136 mmol/L (136-145)
--- NOTE | 2024-04-24 13:20 | DVHPN2 ---
Subjective Denies discharge or to SNF, currently pending bed availability. 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 Medications Current Medications Medications Dose Ordered Sig/Praveena Route Start Time Stop Time Status Last Admin Dose Admin Sodium Chloride 10 ml Q8HR IV 04/19/24 22:00 04/24/24 04:11 10 ML Docusate Sodium 100 mg BIDPRN PRN PO 04/19/24 20:00 04/24/24 05:54 100 MG Acetaminophen 650 mg Q6HP PRN PO 04/19/24 20:00 04/23/24 01:30 650 MG Acetaminophen/ Hydrocodone Bitart 1 tab Q4HP PRN PO 04/19/24 20:00 04/24/24 06:04 1 TAB Hydromorphone HCl 0.5 mg Q4HP PRN IV 04/19/24 20:00 04/24/24 09:10 0.5 MG Ondansetron HCl 4 mg Q4HP PRN IV 04/19/24 20:00 04/20/24 16:57 4 MG Amlodipine Besylate 10 mg DAILY PO 04/20/24 10:00 04/24/24 09:09 10 MG Hydralazine HCl 5 mg Q4H PRN IV 04/19/24 20:00 Pantoprazole Sodium 40 mg DAILY IV 04/20/24 10:00 04/24/24 09:09 40 MG Lactated Ringer's 1,000 ml @ 100 mls/hr Q10H IV 04/21/24 08:30 04/23/24 09:20 100 MLS/HR Sodium Chloride 10 ml Q8HR IV 04/21/24 14:00 04/24/24 04:11 10 ML Enoxaparin Sodium 40 mg DAILY SC 04/21/24 10:00 04/24/24 09:10 40 MG Acetaminophen/ Hydrocodone Bitart 1 tab Q4HP PRN PO 04/21/24 08:30 Laboratory Results Laboratory Tests 04/24/24 06:20 Chemistry Test 04/24/24 06:20 Albumin 3.6 g/dL (3.2-4.8) Calcium Level 9.0 mg/dL (8.7-10.4) Total Protein 6.0 g/dL (5.7-8.2) LFT Test 04/24/24 06:20 Alanine Aminotransferase (ALT) 11 U/L (7-40) Alkaline Phosphatase 65 U/L (46-116) Aspartate Amino Transferase (AST) 20 U/L (13-40) Total Bilirubin 0.5 mg/dL (0.2-1.0) Urinalysis Test 04/19/24 13:30 Urine Color Dark-yellow (Yellow) Urine Clarity Clear (Clear) Urine pH 6.5 (5.0-9.0) Urine Specific [place] 1.017 (1.001-1.035) Urine Protein 1+ (Negative) H Urine Ketones 2+ (Negative) H Urine Blood 3+ /uL (Negative) H Urine Nitrite Negative (Negative) Urine Bilirubin Negative (Negative) Urine Urobilinogen Normal mg/dL (Negative) Urine Leukocyte Esterase 1+ /uL (Negative) Urine RBC 215 /hpf (0 - 4) Urine Microscopic WBC 18 /HPF (0-5) H Urine Squamous Epithelial Cells Few /hpf (<5) Urine Bacteria None seen /hpf (None Seen) Urine Mucus Few (None Seen) Urine Glucose Normal mg/dL (Normal) Assessment/Plan Assessment/Plan 83old female with a known history of hypertension, dyslipidemia, previous history of CAD status post PCI presented to the hospital status post mechanical fall found to have 1. Acute right hip intertrochanteric fracture with mechanical fall status post closed reduction and cephalomedullary nail to proximal femur postop day 1 2. CAD status post PCI 3. Hypertension 4.dyslipidemia -pain meds as needed, DVT prophylaxis, physical therapy evaluation and treatment -discharge plan to [facility] facility for rehab. Plan discussed with: Patient My Orders Orders - MANA GUTIERREZ MD Procedure Category Date Status Time * Senior Vice President & General Counsel CONS 04/23/24 Transmitted Consult Date of Service: Apr 23, 2024 Billing Provider: MANA GUTIERREZ MD Common Visit Codes: [id number] INP/OBS CARE(MOD) MANA GUTIERREZ MD Apr 24, 2024 13:20
--- NOTE | 2024-04-24 13:22 | DVHDS2 ---
Discharge Summary Date of Admission Apr 19, 2024 at 19:48 Date of Discharge: Apr 24, 2024 Labs/Diagnostic Data: Laboratory Results Test 04/24/24 06:20 04/19/24 13:41 04/19/24 13:30 White Blood Count 5.2 10^3/uL (4.4-10.8) Red Blood Count 3.01 10^6/uL (4.0-5.20) Hemoglobin 9.0 g/dL (12.2-16.2) Hematocrit 26.4 % (36.0-46.0) Mean Corpuscular Volume 87.7 fL (80.0-100.0) Mean Corpuscular Hemoglobin 29.9 pg (28.0-32.0) Mean Corpuscular Hemoglobin Concent 34.1 g/dL (32.0-36.0) Red Cell Distribution Width 13.5 % (11.8-14.3) Platelet Count 207 10^3/uL (140-450) Mean Platelet Volume 7.8 fL (6.9-10.8) Neutrophils (%) (Auto) 48.2 % (37.0-80.0) Lymphocytes (%) (Auto) 38.6 % (10.0-50.0) Monocytes (%) (Auto) 11.9 % (0.0-12.0) Eosinophils (%) (Auto) 0.8 % (0.0-7.0) Basophils (%) (Auto) 0.5 % (0.0-2.0) Neutrophils # (Auto) 2.5 10 ^3/uL (1.6-8.6) Lymphocytes # (Auto) 2.0 10 ^3/uL (0.4-5.4) Monocytes # (Auto) 0.6 10 ^3/uL (0-1.3) Eosinophils # (Auto) 0 10 ^3/uL (0-0.8) Basophils # (Auto) 0 10 ^3/uL (0-0.2) Nucleated Red Blood Cells 0.1 % Sodium Level 136 mmol/L (136-145) Potassium Level 3.9 mmol/L (3.5-5.1) Chloride Level 100 mmol/L (98-107) Carbon Dioxide Level 30 mmol/L (20-31) Anion Gap 6 (5-15) Blood Urea Nitrogen 12 mg/dL (9-23) Creatinine 0.57 mg/dL (0.550-1.02) Glomerular Filtration Rate Calc 90 mL/min (>90) BUN/Creatinine Ratio 21.1 (10.0-20.0) Serum Glucose 102 mg/dL (74-106) Calcium Level 9.0 mg/dL (8.7-10.4) Total Bilirubin 0.5 mg/dL (0.2-1.0) Aspartate Amino Transferase (AST) 20 U/L (13-40) Alanine Aminotransferase (ALT) 11 U/L (7-40) Alkaline Phosphatase 65 U/L (46-116) Total Protein 6.0 g/dL (5.7-8.2) Albumin 3.6 g/dL (3.2-4.8) Prothrombin Time 9.9 sec (9.3-11.8) Prothrombin Time INR 0.93 (0.9-1.15) Activated Partial Thromboplast Time 24.5 SEC (24.5-34.5) Urine Color Dark-yellow (Yellow) Urine Clarity Clear (Clear) Urine pH 6.5 (5.0-9.0) Urine Specific [place] 1.017 (1.001-1.035) Urine Protein 1+ (Negative) Urine Ketones 2+ (Negative) Urine Blood 3+ /uL (Negative) Urine Nitrite Negative (Negative) Urine Bilirubin Negative (Negative) Urine Urobilinogen Normal mg/dL (Negative) Urine Leukocyte Esterase 1+ /uL (Negative) Urine RBC 215 /hpf (0 - 4) Urine Microscopic WBC 18 /HPF (0-5) Urine Squamous Epithelial Cells Few /hpf (<5) Urine Bacteria None seen /hpf (None Seen) Urine Mucus Few (None Seen) Urine Glucose Normal mg/dL (Normal) Other Laboratory Tests 04/24/24 06:20 Brief Hx & Hospital Course: 83old female with a known history of hypertension, dyslipidemia, previous history of CAD status post PCI presented to the hospital status post mechanical fall found to have acute right hip intertrochanteric fracture. Patient was seen by Orthopedics. Patient was cleared by Cardiology. Patient underwent closed reduction and cephalomedullary nailing to the proximal femur. Postoperatively the patient did fairly well besides she needs rehab. Patient is being discharged under stable condition [facility]. Patient's son agreed to the current plan of care. Patient Plavix was resumed. Condition at Discharge: Stable Final Diagnosis/Problems List 83old female with a known history of hypertension, dyslipidemia, previous history of CAD status post PCI presented to the hospital status post mechanical fall found to have 1. Acute right hip intertrochanteric fracture with mechanical fall status post closed reduction and cephalomedullary nail to proximal femur postop day 1 2. CAD status post PCI 3. Hypertension 4.dyslipidemia Discharge Disposition: Longterm Facility SNF Discharge Will this Physician continue t: No Discharge Instruct/Medications Diet: Cardiac 2g Na,low cholest Activity: See Comment Activity comment: Weight-bearing on the right lower extremity as tolerated with the physical therapy and occupational therapy. Follow Up/Referral: Follow up with the PCP in one week Follow up with the Orthopedics in one week Medications: As reconciled, resume home medication including Plavix. Discharge Statement: "Patient was advised to return to the ER or call 911 if any headaches, dizziness, shortness of breath, chest pain, abdominal pain, bleeding, fevers, or worsening of medical condition. Patient was counseled about treatment plan, medications, possible side effects, patientverbalized understanding. All questions were answered to the best of my ability. This discharge took greater then 30 minutes in planning, reviewing documentation, counseling the patient, and discussing with other team members." ASSESSMENT ASSESSMENT Assessment 83old female with a known history of hypertension, dyslipidemia, previous history of CAD status post PCI presented to the hospital status post mechanical fall found to have 1. Acute right hip intertrochanteric fracture with mechanical fall status post closed reduction and cephalomedullary nail to proximal femur postop day 1 2. CAD status post PCI 3. Hypertension 4.dyslipidemia Date of Service: Apr 24, 2024 Billing Provider: MANA GUTIERREZ MD Common Visit Codes: 01704-BJN/OBS DISCH DAY >30min MANA GUTIERREZ MD Apr 24, 2024 13:22
[2024-04-24] MEDS ORDERED: CLOPIDOGREL BISULFATE 75 MG TAB PO SCH (13:30)
--- NOTE | 2024-04-24 22:15 | DVHPN2 ---
Progress Note - Dictate Date Seen: Apr 24, 2024 Medical Necessity Reason Pt with a Central, PICC or Fol: No Subjective Pt seen and examined at bedside. On supplemental oxygen Overnight events reviewed. vital signs Vital Sign Date Time Temp Pulse Resp B/P (MAP) Pulse Ox O2 Delivery O2 Flow Rate FiO2 04/24/24 16:11 36.5 04/24/24 16:00 95 18 145/69 (94) 97 04/24/24 07:30 Nasal Cannula* 2 28 Total Intake and Output 04/23/24 04/23/24 04/24/24 15:00 23:00 07:00 Intake Total 660 ml 450 ml Balance 660 ml 450 ml objective Gen.: Patient lying in bed in no apparent distress. On supplemental oxygen. Head: Normocephalic, atraumatic. Eyes: EOMI/PERRLA. Ears: Normal hearing. Normal anatomy. Neck/trachea: Trachea midline, supple. Nose: Normal external anatomy. Mouth: Moist mucous membranes. Chest: Decreased air entry bilaterally. No wheezing or rhonchi. Cardiovascular: Positive S1, positive S2. Regular rate and rhythm. Abdomen: Positive bowel sounds in all 4 quadrants. Soft, non-tender, non- distended. : Deferred. Rectal: Deferred. Skin: Warm, dry. Intact. Extremities: 2+ radial pulses bilaterally. No lower extremity edema. Neuro: Awake, alert, oriented x3. No gross motor or sensory deficits. Cranial nerves II through XII intact. Gait not assessed. laboratory and microbiology Laboratory Tests 04/24/24 06:20 Test 04/24/24 06:20 Range/Units Serum Glucose 102 74-106 mg/dL Assessment/Plan Impression: Acute hypoxic respiratory failure Dependence on supplemental oxygen Atelectasis Right hip fracture Obesity Emphysema Likely COPD Events: Remains on supplemental oxygen On 3 LPM via NC Taper down as tolerated. Continue IS for atelectasis Completed antibiotics Head of bed elevation Aspiration precautions Pain control Avoid oversedation. Slight trend down in Hgb - 9.0 g/dL Continue to monitor closely. Hyponatremia - Na trending up at 136. Monitor sodium closely. Lovenox for DVT prophylaxis Physical therapy Disposition to SNF. Dispo per hospitalist. Awaiting placement Rest of plan as outlined below. Plan: Supplemental oxygen Titrate to keep O2 sats above 92%. Patient desaturates on room air. Incentive spirometry Pain control Avoid oversedation Ortho recs appreciated Accu-Cheks, ISS PRN. Diet and lifestyle modifications for weight reduction Obesity - complicates all care Monitor renal function. Monitor electrolytes. Supplement as necessary. Monitor ins and outs. Recommend outpatient PFTs to assess pulmonary function. GI Prophylaxis - Protonix. DVT prophylaxis - Lovenox. Prognosis: Guarded given patient's multiple co-morbidities. Rest of plan per hospitalist and other consultants. Thank you, Dr. Chávez for allowing me to participate in this patient's care. Further recommendations will depend on the patient's clinical course. Please do not hesitate to contact me if you have any questions or concerns. This medical document was created using an electronic medical record system with [email or web address] computerized dictation system. Although these documentations are being carefully reviewed, there may still be some phonetic and typographical changes. The errors are purely typographical, due to imperfection on the software program, and do not reflect any compromise in the patient's medical care. Plan discussed with: Patient, Other (Dr. Chávez) LORI CROWE MD Apr 24, 2024 22:15
== END 2024-04-24 17:48 | DRG 481 ==
LOC: ER 12:25 → EDBD 12:25 → OVERFLOW 19:48 → WEST WING 21:24
PROVIDERS: ADMIT Internal Medicine; ATTEND Internal Medicine
PROC: 0QS636Z Reposition Right Upper Femur with Intramedullary Internal Fixation Device, Percutaneous Approach (ICD-10-PCS; principal; 2024-04-21 07:24)
DX: S72.141A Displaced intertrochanteric fracture of right femur, initial encounter for closed fracture (principal); D62 Acute posthemorrhagic anemia; J98.11 Atelectasis; I25.10 Atherosclerotic heart disease of native coronary artery without angina pectoris; E11.9 Type 2 diabetes mellitus without complications; J43.9 Emphysema, unspecified; I10 Essential (primary) hypertension; E78.5 Hyperlipidemia, unspecified; E66.9 Obesity, unspecified; Z68.24 Body mass index [BMI] 24.0-24.9, adult; Z88.5 Allergy status to narcotic agent; Z98.61 Coronary angioplasty status; I25.2 Old myocardial infarction; Z86.74 Personal history of sudden cardiac arrest; Z99.81 Dependence on supplemental oxygen; Z90.710 Acquired absence of both cervix and uterus; W18.39XA Other fall on same level, initial encounter; Y93.89 Activity, other specified; Y99.8 Other external cause status; Y92.009 Unspecified place in unspecified non-institutional (private) residence as the place of occurrence of the external cause
CPT/HCPCS: 36415; 71045; 73501; 73502; 73700; 76000; 80048; 80053; 81001; 85025; 85610; 85730; 86850; 86900; 86901; 93005; 93306; 96361; 96374; 96375; 97110; 97116; 97163; G0378; J0171; J1100; J1885; J2405; J2470

== ENCOUNTER 2025-01-03 06:54 | Inpatient (IN) | payer OTHER ==
[~2025-01-03] VITALS: Ht 157.5 cm; Wt 53.4 kg
[~2025-01-03 06:54] MED LIST: AMLO1TAB23 PO; CLOP75TA70 PO
--- NOTE | 2025-01-03 07:03 | ECG ---
[facility] Test Date: 2025-01-03 Test Time: 06:59:14 Pat Name: DEREJE JIMENEZ Department: [facility] ED Patient ID: [facility]-[id number] Room: 0280T Gender: F Project Administrator: CAROLINE : 1940 Requested By: EVELIA MCKNIGHT Order Number: [id number] Reading MD: Thuan Isabel Measurements Intervals [place] Rate: 79 P: 61 [place]: 156 QRS: -26 QRSD: 126 T: 76 QT: 431 QTc: 495 Interpretive Statements Sinus rhythm Probable LVH with secondary repol abnrm Borderline prolonged QT interval Baseline wander in lead(s) V3 Electronically Signed On 01-04-2025 18:47:45 PDT by Thuan Isabel Please click the below link to view image of tracing.
--- NOTE | 2025-01-03 07:32 | ED.PDOC ---
SOB-HPI HPI Comments 84 y.o female with PMHx of HTN and VA, presents to the ED via EMS for a chief complaint of intermittent SOB associated with chest and abdominal pain x 2 weeks. Patient reports last night SOB worsened and mentioned increased chest pain on deep inspiration. EMS reports patient was saturating at 90% RA, placed her on 4 liters oxygen via NC with symptom improvement. Upon ED arrival, patient arrives with SPO2 of 95-96% on oxygen. Patient reports recent bladder stone diagnosis and has an appointment on 01/20/25 with urologist to remove them. EMS also gave zofran in route given nausea complaint which has resolved after being medicated. 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 History: 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 History: No Pertinent PROGRAM DIRECTOR/MUSIC DIRECTOR History Family History Family History: Reviewed,noncontributory to illness, No family hx of Cancer, No family hx of DM, No family hx of Heart giorgio, No family hx of HTN, No family hx ofKidney giorgio, No family hx of Liver giorgio, No family hx of Lung giorgio, No family hx of Stroke Social History Smoker: Non-Smoker Alcohol: Denies ETOH Use Drugs: Denies Drug Use Lives In: Home Constitutional: denies: chills, diaphoresis, fatigue, fever, malaise, sweats, weakness, others EENTM: denies: blurred vision, double vision, ear bleeding, ear discharge, ear drainage, ear pain, ear ringing, eye pain, eye redness, hearing loss, mouth pain , mouth swelling, nasal discharge, nose bleeding, nose congestion, nose pain, photophobia, tearing, throat pain, throat swelling, voice changes, others Respiratory: reports: SOB at rest, shortness of breath; denies: cough, hemoptysis, orthopnea, SOB with excertion, stridor, wheezing, others Cardiovascular: reports: chest pain; denies: dizzy spells, diaphoresis, Dyspnea on exertion, edema, irregular heart beat, left arm pain, lightheadedness, palpitations, PND, syncope, others Gastrointestinal: reports: abdominal pain, nausea; denies: abdomen distended, blood streaked bowels, constipated, diarrhea, dysphagia, difficulty swallowing, hematemesis, melena, poor appetite, poor fluid intake, rectal bleeding, rectal pain, vomiting, others Genitourinary: denies: abnormal vagina bleeding, burning, dyspareunia, dysuria, flank pain, frequency, hematuria, incontinence, pain, , vagina discharge, urgency, others Neurological: denies: dizziness, fainting, headache, left sided numbness, left sided weakness, numbness, paresthesia, pre-existing deficit, right sided numbness, right sided weakness, seizure, speech problems, tingling, tremors, weakness, others Musculoskeletal: denies: back pain, gout, joint pain, joint swelling, muscle pain, muscle stiffness, neck pain, others Integumetry: denies: bruises, change in color, change in hair/nails, dryness, laceration, lesions, lumps, rash, wounds, others Allergic/Immunocompromised: denies: Difficulty Healing, Frequent Infections, Hives, Itching, others Hematologic/Lymphatic: denies: anemia, blood clots, easy bleeding, easy bruising, swollen glands, others Endocrine: denies: excessive hunger, excessive sweating, excessive thirst, excessive urination, flushing, intolerance to cold, intolerance to heat, unexplained weight gain, unexplained weight loss, others Psychiatric: denies: anxiety, bipolar disorder, depression, hopeless, panic disorder, schizophrenia, sleepless, suicidal, others All Other Systems: Reviewed and Negative Physical Exam General Appearance: Moderate Distress HEENT: Normal ENT Inspection, Pharynx Normal, TMs Normal Neck: Full Range of Motion, Non-Tender, Normal, Normal Inspection Respiratory: Respiratory Distress, Other (Coarse breath sounds) Cardiovascular: No Edema, No JVD, No Murmur, No Gallop, Normal Peripheral Pulses, Regular Rate/Rhythm Breast Exam: Deferred Gastrointestinal: No Organomegaly, Non Tender, No Pulsatile Mass, Normal Bowel Sounds, Soft Genitalia: Deferred Pelvic: Deferred Rectal: Deferred Extremities: No calf tenderness, Normal capillary refill, Non-tender, No pedal edema Musculoskeletal : Apperance: Normal Neurologic: Alert, boat builder II-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 Was a procedure done?: No Differential Dx Differential Diagnosis: Anxiety, Asthma, Bronchitis, CHF, COPD, Pneumonia, Pulmonary Embolism, Respiratory Distress, URI X-Ray, Labs, Meds, VS Vital Signs Date Time Temp Pulse Resp B/P (MAP) Pulse Ox O2 Delivery O2 Flow Rate FiO2 01/03/25 14:55 97.9 91 22 152/86 (108) 94 97.9 01/03/25 13:30 91 22 95 Nasal Cannula* 2 28 01/03/25 12:10 87 15 155/98 (117) 94 01/03/25 11:00 82 15 163/97 (119) 95 01/03/25 10:00 162/98 01/03/25 09:30 80 23 94 Nasal Cannula* 4 36 01/03/25 08:33 97.8 82 18 153/95 (114) 97 97.8 01/03/25 08:33 82 18 97 Nasal Cannula 01/03/25 07:32 79 01/03/25 06:59 79 01/03/25 06:54 97.8 78 18 152/94 95 97.8 Lab Test 01/03/25 13:11 01/03/25 10:12 01/03/25 09:53 01/03/25 07:47 Range/Units Troponin I High Sensitivity 67 *H 73 *H 67 *H </=34 ng/L Urine Color Dark-yellow Yellow Urine Clarity Turbid H Clear Urine pH 7.0 5.0-9.0 Urine Specific [place] 1.021 1.001-1.035 Urine Protein 2+ H Negative Urine Ketones Negative Negative Urine Blood 3+ H Negative /uL Urine Nitrite 1+ H Negative Urine Bilirubin 1+ H Negative Urine Urobilinogen 2 H Negative mg/dL Urine Leukocyte Esterase 3+ Negative /uL Urine RBC 281 0 - 4 /hpf Urine Microscopic WBC 285 H 0-5 /HPF Urine Squamous Epithelial Cells Mod <5 /hpf Urine Bacteria Few H None Seen /hpf Urine Mucus Few None Seen Urine Glucose Normal Normal mg/dL White Blood Count 8.2 4.4-10.8 10^3/uL Red Blood Count 4.59 4.0-5.20 10^6/uL Hemoglobin 13.0 12.2-16.2 g/dL Hematocrit 39.0 36.0-46.0 % Mean Corpuscular Volume 84.9 80.0-100.0 fL Mean Corpuscular Hemoglobin 28.3 28.0-32.0 pg Mean Corpuscular Hemoglobin Concent 33.3 32.0-36.0 g/dL Red Cell Distribution Width 16.0 H 11.8-14.3 % Platelet Count 313 140-450 10^3/uL Mean Platelet Volume 8.1 6.9-10.8 fL Neutrophils (%) (Auto) 75.1 37.0-80.0 % Lymphocytes (%) (Auto) 17.8 10.0-50.0 % Monocytes (%) (Auto) 6.6 0.0-12.0 % Eosinophils (%) (Auto) 0.2 0.0-7.0 % Basophils (%) (Auto) 0.3 0.0-2.0 % Neutrophils # (Auto) 6.2 1.6-8.6 10 ^3/uL Lymphocytes # (Auto) 1.5 0.4-5.4 10 ^3/uL Monocytes # (Auto) 0.5 0-1.3 10 ^3/uL Eosinophils # (Auto) 0 0-0.8 10 ^3/uL Basophils # (Auto) 0 0-0.2 10 ^3/uL Nucleated Red Blood Cells 0.1 % Sodium Level 135 L 136-145 mmol/L Potassium Level 4.4 3.5-5.1 mmol/L Chloride Level 102 98-107 mmol/L Carbon Dioxide Level 23 20-31 mmol/L Anion Gap 10 5-15 Blood Urea Nitrogen 21 9-23 mg/dL Creatinine 0.99 0.550-1.02 mg/dL Glomerular Filtration Rate Calc 56 >90 mL/min BUN/Creatinine Ratio 21.2 H 10.0-20.0 Serum Glucose 138 H 74-106 mg/dL Calcium Level 8.7 8.7-10.4 mg/dL B-Type Natriuretic Peptide 2453.60 0-100 pg/mL Current Medications Medications (Trade) Dose Ordered Sig/Praveena Route Start Time Stop Time Status Last Admin Furosemide (Lasix Injection) 20 mg ONCE ONCE IV 01/03/25 07:30 01/03/25 07:31 DC 01/03/25 10:00 Methylprednisolone Sodium Succinate (Solu Medrol) 125 mg ONCE ONCE IV 01/03/25 07:30 01/03/25 07:31 DC 01/03/25 10:00 Ceftriaxone Sodium 50 ml @ 100 mls/hr ONCE ONCE IV 01/03/25 16:00 01/03/25 16:29 DC 01/03/25 16:39 Patient alert. Blood pressure elevated. Complaining of shortness a breath. Placed on oxygen. Heart rate within normal limits. EKG reviewed does not show any acute changes. Was given Lasix. Was given steroid. Possible CHF. History of coronary artery disease. Explained to the patient. Continue monitoring. X-Ray, Labs, Meds, VS Comment [place] [address] Ph: [phone] DIAGNOSTIC IMAGING Diagnostic Imaging Report : [id number] Signed PATIENT: DEREJE JIMENEZ ACCT: [id number] UNIT: [id number] : 1940 LOC: ER ROOM / BED: / AGE / SEX: 84 / F ADM STATUS: REG ER SERVICE 2 ORDERING PHYSICIAN: EVELIA MCKNIGHT MD PROCEDURE(s): CXRP - CHEST PORTABLE REASON: sob ORDER NUMBER(s): [id number], ACCESSION NUMBER(s): [id number] CHEST RADIOGRAPH Indication: sob Technique: Single frontal view of the chest was obtained Comparison: XY CHEST XRAY 1 VIEW on DOS: 04/22/24 FINDINGS: Lines and Tubes: None Lungs: Diffuse bilateral airspace and interstitial opacities. Pleura: There are bilateral pleural effusions, left greater than right. No pneumothorax. Cardiomediastinal contours: Cardiomegaly. Bones: No acute osseous abnormality. Old right rib fractures. IMPRESSION: 1. Cardiomegaly with bilateral pleural effusions and pulmonary edema. ATED BY: ZANE QUINONES MD DICTATED DATE/TIME: 01/03/25812 SIGNED BY: ZANE QUINONES MD SIGNED DATE/TIME: 01/03/25812 CC: Time of 1ST Reevaluation: 07:25 Reevaluation 1ST: Unchanged Patient Education/Counseling: Diagnosis, Treatment, Prognosis Family Education/Counseling: No Family Present SEPSIS Sepsis Screen Date sepsis recognized/suspect: Jan 03, 2025 Time Sepsis recognized/suspect: 0654 Recent Procedure: No On Antibiotic Therapy: No Respiratory Rate >20: No Heart Rate >90: No Temp<36 C (96.8 F) or >38.3 C: No SBP <90 or MAP <65 mmHG: No New Acute Mental Status Change: No Is the patient on CPAP, BIPAP,: No Physician Orders Chest Portable (01/03/25 07:23) Insert/Manage Urinary Catheter QSHIFT (01/03/25 09:30) Vital Signs Date Time Temp Pulse Resp B/P (MAP) Pulse Ox O2 Delivery O2 Flow Rate FiO2 01/03/25 14:55 97.9 91 22 152/86 (108) 94 97.9 01/03/25 13:30 91 22 95 Nasal Cannula* 2 28 01/03/25 12:10 87 15 155/98 (117) 94 01/03/25 11:00 82 15 163/97 (119) 95 01/03/25 10:00 162/98 01/03/25 09:30 80 23 94 Nasal Cannula* 4 36 01/03/25 08:33 97.8 82 18 153/95 (114) 97 97.8 01/03/25 08:33 82 18 97 Nasal Cannula 01/03/25 07:32 79 01/03/25 06:59 79 01/03/25 06:54 97.8 78 18 152/94 95 97.8 Laboratory Tests Test 01/03/25 07:47 White Blood Count 8.2 10^3/uL (4.4-10.8) Medications Medications Dose Ordered Sig/Praveena Route Start Time Stop Time Status Last Admin Dose Admin Ceftriaxone Sodium 50 ml @ 100 mls/hr ONCE ONCE IV 01/03/25 16:00 01/03/25 16:29 DC 01/03/25 16:39 Furosemide 20 mg ONCE ONCE IV 01/03/25 07:30 01/03/25 07:31 DC 01/03/25 10:00 Methylprednisolone Sodium Succinate 125 mg ONCE ONCE IV 01/03/25 07:30 01/03/25 07:31 DC 01/03/25 10:00 Departure 1 Departure Time of Disposition: 07:48 Impression: Primary Impression: CHF (congestive heart failure) Qualified Codes: I50.43 - Acute on chronic combined systolic (congestive) and diastolic (congestive) heart failure Additional Impressions: HTN (hypertension) Qualified Codes: I10 - Essential (primary) hypertension Acute respiratory failure Qualified Codes: J96.01 - Acute respiratory failure with hypoxia Disposition: ADMITTED INPATIENT Admit to: Med Surg Condition: Guarded Critical Care Note Critical Care Time?: Yes (90 min-critical care time only) Stability Stability form required: No Heart Score Heart Score: Heart Score Response (Comments) Value History Moderate Suspicious 1 EKG Normal 0 Age >65 2 Risk Factors >3 or Hx ASHD 2 Troponin Normal limit 0 Total 5 I personally scribed for EVELIA MCKNIGHT MD ([email or web address]) on 01/03/25 at 07:32. Electronically submitted by Kamala Whitt ([facility]). I personally scribed for EVELIA MCKNIGHT MD ([email or web address]) on 01/03/25 at 15:43. Electronically submitted by Kamala Whitt ([facility]). EVELIA MCKNIGHT MD Jan 03, 2025 07:32
--- NOTE | 2025-01-03 08:16 | DVH ---
CHEST RADIOGRAPH Indication: sob Technique: Single frontal view of the chest was obtained Comparison: XY CHEST XRAY 1 VIEW on DOS: 04/22/24 FINDINGS: Lines and Tubes: None Lungs: Diffuse bilateral airspace and interstitial opacities. Pleura: There are bilateral pleural effusions, left greater than right. No pneumothorax. Cardiomediastinal contours: Cardiomegaly. Bones: No acute osseous abnormality. Old right rib fractures. IMPRESSION: 1. Cardiomegaly with bilateral pleural effusions and pulmonary edema.
[2025-01-03 08:24] LABS: Hematocrit 39.0 % (36.0-46.0); Hemoglobin 13.0 g/dL (12.2-16.2); Mean Corpuscular Hemoglobin 28.3 pg (28.0-32.0); Mean Corpuscular Volume 84.9 fL (80.0-100.0); Nucleated Red Blood Cells % 0.1 %
[2025-01-03 08:33] LABS: Chloride 102 mmol/L (98-107); Potassium 4.4 mmol/L (3.5-5.1)
[2025-01-03 08:34] LABS: Anion Gap 10 (5-15); Carbon Dioxide 23 mmol/L (20-31)
[2025-01-03 08:35] LABS: Calcium 8.7 mg/dL (8.7-10.4); Sodium 135 mmol/L (136-145)
[2025-01-03 08:39] LABS: BUN/Creatinine Ratio 21.2 (10.0-20.0); Blood Urea Nitrogen 21 mg/dL (9-23); Glucose 138 mg/dL (74-106)
[2025-01-03 09:30] VITALS: PULSE 80; RESP 23; O2SAT 94
[2025-01-03] MEDS: methylPREDNISolone SOD SUCC 125 MG/2 ML VL IV ONE (10:00)
[2025-01-03] MEDS: FUROSEMIDE 20 MG/2 ML VIAL IV ONE (10:00)
[2025-01-03 10:58] LABS: Urine Protein, UAD 2+ (Negative)
[2025-01-03 13:30] VITALS: PULSE 91; RESP 22; O2SAT 95
[2025-01-03] MEDS ORDERED: HYDROcodone-ACET 5/325MG TAB PO PRN (16:00)
[2025-01-03] MEDS ORDERED: ONDANSETRON HCL 4 MG/2 ML VIAL IV PRN (16:00)
[2025-01-03] MEDS ORDERED: IPRATROPIUM BROM 0.5 MG/2.5ML INH SOL NEB PRN (16:00)
[2025-01-03] MEDS ORDERED: NITROGLYCERIN 0.4 MG SL TAB SL PRN (16:00)
[2025-01-03] MEDS ORDERED: ALBUTEROL SULF 2.5 MG/0.5ML(0.5%) NEB SOLN NEB PRN (16:00)
[2025-01-03] MEDS ORDERED: MORPHINE SULFATE INJ 2 MG/ml SYRG IV PRN (16:00)
[2025-01-03] MEDS: FUROSEMIDE 40 MG/4 ML VIAL IV SCH (16:40)
--- NOTE | 2025-01-03 16:40 | DVHHP2 ---
History of Present Illness Reason for Visit: Shortness of breath History of Present Illness Estela Lopez is an 84-year-old female with past medical history of hypertension, and ND, who came to the hospital for shortness of breath and abdominal pain. Patient states she has been experiencing intermittent abdominal pain and shortness of breath until this morning. This morning she states the shortness of breath worsened significantly prompting her to come to the hospital. Cardiovascular: HTN, ND, Other (PTCA with stents) Past Surgical History: Other (PTCA with stents, ) Smoke: No ALCOHOL: none Drugs: None Lives: with Family Domestic Violence: Neg Review of Systems Constitutional: No: Fever, Chills, Sweats, Weakness, Malaise, Other Eyes: No: Pain, Vision change, Conjunctivae inflammation, Eyelid inflammation, Other, Redness ENT: No: Ear pain, Ear discharge, Nose pain, Nose discharge, Nose congestion, Mouth pain, Mouth swelling, Throat pain, Throat swelling, Other Respiratory: Shortness of breath, SOB with excertion; No: Cough, Dry, Wheezing, Hemoptysis, Pleuritic Pain, Sputum, Wheezing, Other Cardiovascular: No: Chest Pain, Palpitations, Orthopnea, Paroxysmal Noc. D yspnea, Edema, Lt Headedness, Other Gastrointestinal: Abdominal Pain (epigastric); No: Nausea, Vomiting, Diarrhea, Constipation, Melena, Hematochezia, Other Genitourinary: No Dysuria, No Frequency, No Incontinence, No Hematuria, No Retention, No Other Musculoskeletal: No: other, neck pain, shoulder pain, arm pain, back pain, hand pain, leg pain, foot pain Skin: No: Rash, Lesions, Jaundice, Bruising, Other Allergies: Coded Allergies: Codeine (Verified Allergy, Unknown, 08/21/17) Medications Current Medications Medications Dose Ordered Sig/Praveena Route Start Time Stop Time Status Last Admin Dose Admin Acetaminophen/ Hydrocodone Bitart 1 tab Q4HP PRN PO 01/03/25 16:00 UNV Ondansetron HCl 4 mg Q4HP PRN IV 01/03/25 16:00 UNV Docusate Sodium 100 mg BIDPRN PRN PO 01/03/25 16:00 UNV Enoxaparin Sodium 40 mg DAILY SC 01/04/25 10:00 UNV Acetaminophen 650 mg Q6HP PRN PO 01/03/25 16:00 UNV Exam Vital Signs Vital Signs Date Time Temp Pulse Resp B/P (MAP) Pulse Ox O2 Delivery O2 Flow Rate FiO2 01/03/25 14:55 97.9 91 22 152/86 (108) 94 97.9 01/03/25 13:30 Nasal Cannula* 2 28 General Appearance: Alert, Oriented X3, Cooperative, moderate distress HEENT: Atraumatic, PERRLA, Mucous membr. moist/pink Respiratory: Other (Diminished breath sounds, crackles) Cardiovascular: Regular rate, Normal S1, Normal S2 Abdominal: Normal bowel sounds, Soft, No tenderness, No hepatospenomegaly Extremities: No clubbing, No cyanosis, No edema, Normal pulses Skin: No rashes, No breakdown, No significant lesion Neuro: Normal gait, Normal speech, Strength at 5/5 X4 ext Psych/Mental Status: Mental status NL, Mood NL Labs/Xrays Labs Test 01/03/25 13:11 01/03/25 09:53 01/03/25 07:47 Range/Units Troponin I High Sensitivity 67 *H </=34 ng/L Urine Color Dark-yellow Yellow Urine Clarity Turbid H Clear Urine pH 7.0 5.0-9.0 Urine Specific [place] 1.021 1.001-1.035 Urine Protein 2+ H Negative Urine Ketones Negative Negative Urine Blood 3+ H Negative /uL Urine Nitrite 1+ H Negative Urine Bilirubin 1+ H Negative Urine Urobilinogen 2 H Negative mg/dL Urine Leukocyte Esterase 3+ Negative /uL Urine RBC 281 0 - 4 /hpf Urine Microscopic WBC 285 H 0-5 /HPF Urine Squamous Epithelial Cells Mod <5 /hpf Urine Bacteria Few H None Seen /hpf Urine Mucus Few None Seen Urine Glucose Normal Normal mg/dL White Blood Count 8.2 4.4-10.8 10^3/uL Red Blood Count 4.59 4.0-5.20 10^6/uL Hemoglobin 13.0 12.2-16.2 g/dL Hematocrit 39.0 36.0-46.0 % Mean Corpuscular Volume 84.9 80.0-100.0 fL Mean Corpuscular Hemoglobin 28.3 28.0-32.0 pg Mean Corpuscular Hemoglobin Concent 33.3 32.0-36.0 g/dL Red Cell Distribution Width 16.0 H 11.8-14.3 % Platelet Count 313 140-450 10^3/uL Mean Platelet Volume 8.1 6.9-10.8 fL Neutrophils (%) (Auto) 75.1 37.0-80.0 % Lymphocytes (%) (Auto) 17.8 10.0-50.0 % Monocytes (%) (Auto) 6.6 0.0-12.0 % Eosinophils (%) (Auto) 0.2 0.0-7.0 % Basophils (%) (Auto) 0.3 0.0-2.0 % Neutrophils # (Auto) 6.2 1.6-8.6 10 ^3/uL Lymphocytes # (Auto) 1.5 0.4-5.4 10 ^3/uL Monocytes # (Auto) 0.5 0-1.3 10 ^3/uL Eosinophils # (Auto) 0 0-0.8 10 ^3/uL Basophils # (Auto) 0 0-0.2 10 ^3/uL Nucleated Red Blood Cells 0.1 % Sodium Level 135 L 136-145 mmol/L Potassium Level 4.4 3.5-5.1 mmol/L Chloride Level 102 98-107 mmol/L Carbon Dioxide Level 23 20-31 mmol/L Anion Gap 10 5-15 Blood Urea Nitrogen 21 9-23 mg/dL Creatinine 0.99 0.550-1.02 mg/dL Glomerular Filtration Rate Calc 56 >90 mL/min BUN/Creatinine Ratio 21.2 H 10.0-20.0 Serum Glucose 138 H 74-106 mg/dL Calcium Level 8.7 8.7-10.4 mg/dL B-Type Natriuretic Peptide 2453.60 0-100 pg/mL CHEST RADIOGRAPH FINDINGS: Lines and Tubes: None Lungs: Diffuse bilateral airspace and interstitial opacities. Pleura: There are bilateral pleural effusions, left greater than right. No pneumothorax. Cardiomediastinal contours: Cardiomegaly. Bones: No acute osseous abnormality. Old right rib fractures. IMPRESSION: 1. Cardiomegaly with bilateral pleural effusions and pulmonary edema. SEPSIS Sepsis Screen Date sepsis recognized/suspect: Jan 03, 2025 Time Sepsis recognized/suspect: 0654 Recent Procedure: No On Antibiotic Therapy: No Respiratory Rate >20: No Heart Rate >90: No Temp<36 C (96.8 F) or >38.3 C: No SBP <90 or MAP <65 mmHG: No New Acute Mental Status Change: No Is the patient on CPAP, BIPAP,: No Physician Orders Insert/Manage Urinary Catheter QSHIFT (01/03/25 09:30) Admit (01/03/25 16:00) Code Status (01/03/25 16:00) Hydrocodone-Acet 5/325mg Tab ([place] 5/32 (01/03/25 16:00) Ondansetron Hcl (Zofran) (01/03/25 16:00) Docusate Sodium Capsule (Colace Capsule) (01/03/25 16:00) Enoxaparin Sodium (Lovenox) (01/04/25 10:00) Complete Blood Count (01/04/25 04:00) Comprehensive Metabolic Panel (01/04/25 04:00) Cardiac Diet-2gna,Lofat,Lochol (01/03/25 Dinner) Echo 2d Mode Cardiac Dop (01/03/25 16:00) Condition: Serious (01/03/25 16:00) Acetaminophen Tablet (Tylenol Tablet) (01/03/25 16:00) Nitroglycerin Sublingual (Ntrostat Subli (01/03/25 16:00) Morphine Sulfate Injection (01/03/25 16:00) Stat Ekg For Chest Pain (01/03/25 16:00) Notify Md Of Changes From Base (01/03/25 16:00) Direct Service Professional For 24 Hours (01/03/25 16:00) Emergency Dysrhythmia Protocol (01/03/25 16:00) Rhythm Strips Once Every Shift (01/03/25 16:00) Oxygen By Nasal Cannula (01/03/25 16:00) Methylprednisolone Sod Succ (Solu Medrol (01/03/25 22:00) Furosemide Injection (Lasix Injection) (01/03/25 18:00) Albuterol Medneb (Ventolin Medneb) (01/03/25 16:00) Ipratropium Medneb (Atrovent Medneb) (01/03/25 16:00) Ceftriaxone Ivpb Rocephin (01/04/25 09:00) Ceftriaxone Ivpb Rocephin (01/03/25 16:00) Clopidogrel Bisulfate (Plavix) (01/04/25 10:00) (Nf) Amlodipine Besylate (01/04/25 10:00) Vital Signs Date Time Temp Pulse Resp B/P (MAP) Pulse Ox O2 Delivery O2 Flow Rate FiO2 01/03/25 14:55 97.9 91 22 152/86 (108) 94 97.9 01/03/25 13:30 91 22 95 Nasal Cannula* 2 28 01/03/25 12:10 87 15 155/98 (117) 94 01/03/25 11:00 82 15 163/97 (119) 95 01/03/25 10:00 162/98 01/03/25 09:30 80 23 94 Nasal Cannula* 4 36 01/03/25 08:33 97.8 82 18 153/95 (114) 97 97.8 01/03/25 08:33 82 18 97 Nasal Cannula Laboratory Tests Test 01/03/25 07:47 White Blood Count 8.2 10^3/uL (4.4-10.8) Medications Medications Dose Ordered Sig/Praveena Route Start Time Stop Time Status Last Admin Dose Admin Furosemide 20 mg ONCE ONCE IV 01/03/25 07:30 01/03/25 07:31 DC 01/03/25 10:00 20 MG Methylprednisolone Sodium Succinate 125 mg ONCE ONCE IV 01/03/25 07:30 01/03/25 07:31 DC 01/03/25 10:00 125 MG Assessment/Plan Assessment/Plan Assessment: CHF (congestive heart failure), UTI, Pleural effusion, Pulmonary edema, Elevated troponin, Possible pneumonia, Hypertension, Plan: Admit to Tele, IV Lasix, Breathing treatments, IV antibiotics, ECHO, Consider cardiology consult, home medications reconciled, Plan discussed with: Patient My Orders Orders - DEBBIE GARCIA CONGRESSIONAL AIDE Procedure Category Date Status Time Admit ADMIT 01/03/25 Transmitted 16:00 Code Status CODE 01/03/25 Transmitted 16:00 Hydrocodone-Acet PHA 01/03/25 Logged 5/325mg Tab ([place] 16:00 Ondansetron Hcl PHA 01/03/25 Logged (Zofran) 16:00 Docusate Sodium PHA 01/03/25 Logged Capsule (Colace 16:00 Enoxaparin Sodium PHA 01/04/25 Logged (Lovenox) 10:00 Complete Blood Count LAB 01/04/25 Verified 04:00 Comprehensive LAB 01/04/25 Verified Metabolic Panel 04:00 Cardiac DIET 01/03/25 Transmitted Diet-2gna,Lofat,Lochol Dinner Echo 2d Mode Cardiac US 01/03/25 Logged DOP 16:00 Condition: Serious VAUGHN 01/03/25 In Process 16:00 Acetaminophen Tablet PHA 01/03/25 Logged (Tylenol Tablet) 16:00 Nitroglycerin PHA 01/03/25 Logged Sublingual (Ntrostat 16:00 Morphine Sulfate PHA 01/03/25 Logged Injection 16:00 Stat Ekg For Chest VAUGHN 01/03/25 In Process Pain 16:00 Notify Of Changes VAUGHN 01/03/25 In Process From Base 16:00 Direct Service Professional For VAUGHN 01/03/25 In Process 24 Hours 16:00 Emergency Dysrhythmia [facility] 01/03/25 In Process Protocol 16:00 Rhythm Strips Once VAUGHN 01/03/25 In Process Every Shift 16:00 Oxygen By Nasal RT 01/03/25 Transmitted Cannula 16:00 Methylprednisolone PHA 01/03/25 Logged Sod Succ (Solu Medrol 22:00 Furosemide Injection PHA 01/03/25 Logged (Lasix Injection) 18:00 Albuterol Medneb PHA 01/03/25 Logged (Ventolin Medneb) 16:00 Ipratropium Medneb PHA 01/03/25 Transmitted (Atrovent Medneb) 16:00 Ceftriaxone Ivpb PHA 01/04/25 Transmitted Rocephin 09:00 Ceftriaxone Ivpb PHA 01/03/25 Transmitted Rocephin 16:00 Clopidogrel Bisulfate PHA 01/04/25 Transmitted (Plavix) 10:00 (Nf) Amlodipine PHA 01/04/25 Transmitted Besylate 10:00 Date of Service: Jan 03, 2025 Billing Provider: DEBBIE GARCIA Common Visit Codes: [id number] INP/OBS CARE (HIGH) DEBBIE GARCIA Jan 03, 2025 16:40
[2025-01-03 16:50] VITALS: BP 143/80; PULSE 90; RESP 18; TEMP 97.9; O2SAT 96
[2025-01-03 17:50] VITALS: O2SAT 98
[2025-01-03 21:32] VITALS: BP 150/90; PULSE 88; RESP 18; TEMP 98.8; O2SAT 96
[2025-01-03] MEDS: methylPREDNISolone SOD SUCC 40 MG/ML VL IV SCH (22:20)
[2025-01-04] VITALS (11 sets, daily range): BP systolic 130–167; BP diastolic 81–99; PULSE 59–98; RESP 17–19; TEMP 97.5–98.8; O2SAT 94–98
[2025-01-04 05:07] LABS: Hematocrit 39.6 % (36.0-46.0); Hemoglobin 13.5 g/dL (12.2-16.2); Mean Corpuscular Hemoglobin 28.5 pg (28.0-32.0); Mean Corpuscular Volume 83.9 fL (80.0-100.0); Nucleated Red Blood Cells % 0.0 %
[2025-01-04 05:31] LABS: Alkaline Phosphatase 102 U/L (46-116); Anion Gap 12 (5-15); BUN/Creatinine Ratio 20.0 (10.0-20.0); Blood Urea Nitrogen 23 mg/dL (9-23); Carbon Dioxide 24 mmol/L (20-31); Chloride 101 mmol/L (98-107); Potassium 3.9 mmol/L (3.5-5.1); Sodium 137 mmol/L (136-145); Total Protein 7.0 g/dL (5.7-8.2)
[2025-01-04 05:32] LABS: Albumin 3.8 g/dL (3.2-4.8)
[2025-01-04 05:33] LABS: Alanine Aminotransferase 54 U/L (7-40); Calcium 8.4 mg/dL (8.7-10.4); Glucose 155 mg/dL (74-106)
[2025-01-04 05:38] LABS: Bilirubin, Total 0.6 mg/dL (0.2-1.0)
[2025-01-04] MEDS: CLOPIDOGREL BISULFATE 75 MG TAB PO SCH (09:43)
[2025-01-04] MEDS: ENOXAPARIN SOD 40 MG/0.4 ML SYRINGE SC SCH (10:10)
--- NOTE | 2025-01-04 14:45 | DVHPN2 ---
Subjective The patient seen and examined at bedside. No complains today. Shortness of breath improved. Feel better Reviewed: Care Plan, H&P, Medications, Previous Orders, Radiology Changes from previous H/P or p: No Changes Eyes: No Pain, No Vision change, No Conjunctivae inflammation, No Eyelid inflammation, No Other, No Redness ENT: No Ear pain, No Ear discharge, No Nose pain, No Nose discharge, No Nose congestion, No Mouth pain, No Mouth swelling, No Throat pain, No Throat swelling, No Other Cardiovascular: No Chest Pain, No Palpitations, No Orthopnea, No Paroxysmal Noc. Dyspnea, No Edema, No Lt Headedness, No Other Respiratory: No Cough, No Dry; Shortness of breath, SOB with excertion; No Wheezing, No Hemoptysis, No Pleuritic Pain, No Sputum, No Other Gastrointestinal: No Nausea, No Vomiting; Abdominal Pain (epigastric); No Diarrhea, No Constipation, No Melena, No Hematochezia, No Other Genitourinary: No Dysuria, No Frequency, No Incontinence, No Hematuria, No Retention, No Other Musculoskeletal: No other, No neck pain, No shoulder pain, No arm pain, No back pain, No hand pain, No leg pain, No foot pain Skin: No Rash, No Lesions, No Jaundice, No Bruising, No Other Objective Vitals Vital Signs Date Time Temp Pulse Resp B/P (MAP) Pulse Ox O2 Delivery O2 Flow Rate FiO2 01/04/25 13:00 97.7 79 18 143/91 (108) 97 97.7 01/04/25 10:00 Nasal Cannula* 2 28 Intake/Output Intake and Output 01/04/25 07:00 Intake Total 240 ml Output Total 1350 ml Balance -1110 ml Intake Oral 240 ml Output Urine Total 1350 ml General Appearance: Alert, Cooperative, No acute distress HEENT: Atraumatic, PERRLA, EOMI, Mucous membr. moist/pink Neck: Supple Lungs: Clear to auscultation, Normal air movement Cardiovascular: Regular rate, Normal S1, Normal S2, No murmurs, Gallops, Rubs Abdomen: Normal bowel sounds, Soft, No tenderness Neuro: Cranial nerves 3-12 NL Psych/Mental Status: Mental status NL Medications Current Medications Medications Dose Ordered Sig/Praveena Route Start Time Stop Time Status Last Admin Dose Admin Acetaminophen/ Hydrocodone Bitart 1 tab Q4HP PRN PO 01/03/25 16:00 Hold Ondansetron HCl 4 mg Q4HP PRN IV 01/03/25 16:00 Docusate Sodium 100 mg BIDPRN PRN PO 01/03/25 16:00 Enoxaparin Sodium 40 mg DAILY SC 01/04/25 10:00 01/04/25 10:10 40 MG Acetaminophen 650 mg Q6HP PRN PO 01/03/25 16:00 Nitroglycerin 0.4 mg Q5MINP PRN SL 01/03/25 16:00 Morphine Sulfate 2 mg Q30M PRN IV 01/03/25 16:00 Methylprednisolone Sodium Succinate 40 mg BID IV 01/03/25 22:00 01/04/25 09:45 40 MG Furosemide 40 mg BIDD IV 01/03/25 18:00 01/04/25 05:48 40 MG Albuterol 2.5 mg Q6HPRN PRN NEB 01/03/25 16:00 Ipratropium [place] 0.5 mg Q6HPRN PRN NEB 01/03/25 16:00 Ceftriaxone Sodium 50 ml @ 100 mls/hr DAILY@09 IV 01/04/25 09:00 01/04/25 09:00 100 MLS/HR Clopidogrel Bisulfate 75 mg DAILY PO 01/04/25 10:00 01/04/25 09:43 75 MG Amlodipine Besylate 10 mg DAILY PO 01/04/25 10:00 01/04/25 09:44 10 MG Laboratory Results Laboratory Tests 01/04/25 04:30 Chemistry Test 01/04/25 04:30 Albumin 3.8 g/dL (3.2-4.8) Calcium Level 8.4 mg/dL (8.7-10.4) L Total Protein 7.0 g/dL (5.7-8.2) LFT Test 01/04/25 04:30 Alanine Aminotransferase (ALT) 54 U/L (7-40) H Alkaline Phosphatase 102 U/L (46-116) Aspartate Amino Transferase (AST) 32 U/L (13-40) Total Bilirubin 0.6 mg/dL (0.2-1.0) Urinalysis Test 01/03/25 09:53 Urine Color Dark-yellow (Yellow) Urine Clarity Turbid (Clear) H Urine pH 7.0 (5.0-9.0) Urine Specific [place] 1.021 (1.001-1.035) Urine Protein 2+ (Negative) H Urine Ketones Negative (Negative) Urine Blood 3+ /uL (Negative) H Urine Nitrite 1+ (Negative) H Urine Bilirubin 1+ (Negative) H Urine Urobilinogen 2 mg/dL (Negative) H Urine Leukocyte Esterase 3+ /uL (Negative) Urine RBC 281 /hpf (0 - 4) Urine Microscopic WBC 285 /HPF (0-5) H Urine Squamous Epithelial Cells Mod /hpf (<5) Urine Bacteria Few /hpf (None Seen) H Urine Mucus Few (None Seen) Urine Glucose Normal mg/dL (Normal) Labs and/or images reviewed: Labs reviewed by me, Image(s) reviewed by me Assessment/Plan Assessment/Plan CHF (congestive heart failure), UTI, Pleural effusion, Pulmonary edema, Elevated troponin, Possible pneumonia, Hypertension, COPD exacerbation Plan: Continue current management. Continue withn IV Lasix, Breathing treatments with nebulizer, Continue IV antibiotics, Rocephin Will follow up Echo, Consider cardiology consult if patient is not improved. Cotninue home medications Continue solumedrol Plan discussed with: Patient Date of Service: Jan 04, 2025 Billing Provider: GARO ARRINGTON MD Common Visit Codes: [id number] INP/OBS CARE(HIGH) GARO ARRINGTON MD Jan 04, 2025 14:45
--- NOTE | 2025-01-04 16:35 | DVHSR ---
APPROVED REPORT EXAM: Two-dimensional and M-mode echocardiogram with Doppler and color Doppler. Blood Pressure: 146/88 mmHg INDICATION CHF RISK FACTORS Height: 5' 2", Weight: 117 DIMENSIONS LVDd5.5 (3.8-5.7cm)LA (2D)4.5 (1.9-4.0cm)Aortic Root3.5 (2.0-3.7cm) LVDs4.9 (2.5-4.0cm)LA (MM) (1.9-4.0cm)Aortic Cusp Exc1.6 (1.5-2.0cm) EF (%) 30.0 (55-70%)Rt. Atrium3.9 (1.9-4.0cm)Asc. Aorta cm IVSd1.2 (0.7-1.1cm)RV (D) (1.8-2.4cm) PWd0.8 (0.7-1.1cm) Mitral Valve MitralMitral Stenosis E wave2.10m/sMV Mean GR.mmHg A wave1.20m/sMV Peak GR.mmHg E/A ratio1.82D MVAcm2 Aortic Valve Aortic ValveAortic Stenosis V10.80m/Shona Mean GR.3mmHg V21.30m/Shona Peak GR.7mmHg LVOT Diameter2.1 (1.8-2.4cm)Doppler AVA2.13cm2 AI P 1/2 [id number] Pulmonic Valve V20.40m/s Tricuspid Valve TR Velocity2.90m/s [id number] Conclusion Sinus rhythm. Left atrial enlargement. Moderate mitral annular calcification of the base of the posterior mitral leaflet. The aortic is mil d sclerosis. The tricuspid and pulmonic normal. Left ventricular function is diminished. EF is approximately 30% with global hypokinesis predominant ly of the inferior wall. Right ventricular function is moderately diminished. There is moderate aortic insufficiency. Moderate mitral regurgitation with moderate tricuspid regurg itation. Moderate pulmonic insufficiency. There appears to be left pleural effusion. Trace pericardial effusion not hemodynamically significan t. No intracardiac masses thrombi or vegetations discernible.
[2025-01-05] VITALS (13 sets, daily range): BP systolic 143–159; BP diastolic 80–96; PULSE 71–89; RESP 16–18; TEMP 97.4–98.2; O2SAT 95–98
[2025-01-05] MEDS: DOCUSATE SOD 100 MG CAP PO PRN (06:02)
--- NOTE | 2025-01-05 22:29 | DVHPN2 ---
Subjective The patient seen and examined at bedside. No complains today. Shortness of breath improved. Feel better Reviewed: Care Plan, H&P, Medications, Previous Orders, Radiology Changes from previous H/P or p: No Changes Eyes: No Pain, No Vision change, No Conjunctivae inflammation, No Eyelid inflammation, No Other, No Redness ENT: No Ear pain, No Ear discharge, No Nose pain, No Nose discharge, No Nose congestion, No Mouth pain, No Mouth swelling, No Throat pain, No Throat swelling, No Other Cardiovascular: No Chest Pain, No Palpitations, No Orthopnea, No Paroxysmal Noc. Dyspnea, No Edema, No Lt Headedness, No Other Respiratory: No Cough, No Dry; Shortness of breath, SOB with excertion; No Wheezing, No Hemoptysis, No Pleuritic Pain, No Sputum, No Other Gastrointestinal: No Nausea, No Vomiting; Abdominal Pain (epigastric); No Diarrhea, No Constipation, No Melena, No Hematochezia, No Other Genitourinary: No Dysuria, No Frequency, No Incontinence, No Hematuria, No Retention, No Other Musculoskeletal: No other, No neck pain, No shoulder pain, No arm pain, No back pain, No hand pain, No leg pain, No foot pain Skin: No Rash, No Lesions, No Jaundice, No Bruising, No Other Objective Vitals Vital Signs Date Time Temp Pulse Resp B/P (MAP) Pulse Ox O2 Delivery O2 Flow Rate FiO2 01/05/25 21:00 98.1 85 18 151/87 (108) 95 98.1 01/05/25 20:00 Nasal Cannula* 2 28 Intake/Output Intake and Output 01/05/25 07:00 Intake Total 1100 ml Output Total 2200 ml Balance -1100 ml Intake Oral 1100 ml Output Urine Total 2200 ml General Appearance: Alert, Cooperative, No acute distress HEENT: Atraumatic, PERRLA, EOMI, Mucous membr. moist/pink Neck: Supple Lungs: Clear to auscultation, Normal air movement Cardiovascular: Regular rate, Normal S1, Normal S2, No murmurs, Gallops, Rubs Abdomen: Normal bowel sounds, Soft, No tenderness Neuro: Cranial nerves 3-12 NL Psych/Mental Status: Mental status NL Medications Current Medications Medications Dose Ordered Sig/Praveena Route Start Time Stop Time Status Last Admin Dose Admin Acetaminophen/ Hydrocodone Bitart 1 tab Q4HP PRN PO 10/17/25 16:00 Hold Ondansetron HCl 4 mg Q4HP PRN IV 01/03/25 16:00 Docusate Sodium 100 mg BIDPRN PRN PO 01/03/25 16:00 01/05/25 06:02 100 MG Enoxaparin Sodium 40 mg DAILY SC 01/04/25 10:00 01/05/25 10:58 40 MG Acetaminophen 650 mg Q6HP PRN PO 01/03/25 16:00 Nitroglycerin 0.4 mg Q5MINP PRN SL 01/03/25 16:00 Morphine Sulfate 2 mg Q30M PRN IV 01/03/25 16:00 Methylprednisolone Sodium Succinate 40 mg BID IV 01/03/25 22:00 01/05/25 21:34 40 MG Furosemide 40 mg BIDD IV 01/03/25 18:00 01/05/25 17:46 40 MG Albuterol 2.5 mg Q6HPRN PRN NEB 01/03/25 16:00 Ipratropium [place] 0.5 mg Q6HPRN PRN NEB 01/03/25 16:00 Ceftriaxone Sodium 50 ml @ 100 mls/hr DAILY@09 IV 01/04/25 09:00 01/05/25 09:28 100 MLS/HR Clopidogrel Bisulfate 75 mg DAILY PO 01/04/25 10:00 01/05/25 10:59 75 MG Amlodipine Besylate 10 mg DAILY PO 01/04/25 10:00 01/05/25 10:59 10 MG Laboratory Results Laboratory Tests 01/04/25 04:30 Urinalysis Test 01/03/25 09:53 Urine Color Dark-yellow (Yellow) Urine Clarity Turbid (Clear) H Urine pH 7.0 (5.0-9.0) Urine Specific [place] 1.021 (1.001-1.035) Urine Protein 2+ (Negative) H Urine Ketones Negative (Negative) Urine Blood 3+ /uL (Negative) H Urine Nitrite 1+ (Negative) H Urine Bilirubin 1+ (Negative) H Urine Urobilinogen 2 mg/dL (Negative) H Urine Leukocyte Esterase 3+ /uL (Negative) Urine RBC 281 /hpf (0 - 4) Urine Microscopic WBC 285 /HPF (0-5) H Urine Squamous Epithelial Cells Mod /hpf (<5) Urine Bacteria Few /hpf (None Seen) H Urine Mucus Few (None Seen) Urine Glucose Normal mg/dL (Normal) Labs and/or images reviewed: Labs reviewed by me Assessment/Plan Assessment/Plan CHF (congestive heart failure), UTI, Pleural effusion, Pulmonary edema, Elevated troponin, Possible pneumonia, Hypertension, COPD exacerbation Plan: Continue current management. Continue withn IV Lasix, Breathing treatments with nebulizer, Continue IV antibiotics, Rocephin Will follow up Echo, Consider cardiology consult if patient is not improved. Cotninue home medications Continue solumedrol Discharge planning This medical document was created using an electronic medical record system with [email or web address] dictation system. Although this document has been carefully reviewed, there may still be some phonetic and typographical errors. These areas are purely typographical due to imperfections of the software programs, and do not reflect any compromise in the patient's medical care. Plan discussed with: Patient My Orders Orders - GARO ARRINGTON MD Procedure Category Date Status Time Complete Blood Count LAB 01/06/25 Verified 05:00 Complete Blood Count LAB 01/07/25 Verified 05:00 Complete Blood Count LAB 01/08/25 Verified 05:00 Complete Blood Count LAB 01/09/25 Verified 05:00 Complete Blood Count LAB 01/10/25 Verified 05:00 Basic Metabolic Panel LAB 01/06/25 Verified 05:00 Basic Metabolic Panel LAB 01/07/25 Verified 05:00 Basic Metabolic Panel LAB 01/08/25 Verified 05:00 Basic Metabolic Panel LAB 01/09/25 Verified 05:00 Basic Metabolic Panel LAB 01/10/25 Verified 05:00 Date of Service: Jan 05, 2025 Billing Provider: GARO ARRINGTON MD Common Visit Codes: [id number] INP/OBS CARE(HIGH) GARO ARRINGTON MD Jan 05, 2025 22:29
[2025-01-06] VITALS (12 sets, daily range): BP systolic 147–164; BP diastolic 88–94; PULSE 65–96; RESP 14–20; TEMP 97.3–98.6; O2SAT 93–98
[2025-01-06] MEDS: ACETAMINOPHEN 325 MG TAB PO PRN (01:59)
[2025-01-06 06:17] LABS: Hematocrit 44.3 % (36.0-46.0); Hemoglobin 14.8 g/dL (12.2-16.2); Mean Corpuscular Hemoglobin 28.1 pg (28.0-32.0); Mean Corpuscular Volume 84.3 fL (80.0-100.0); Nucleated Red Blood Cells % 0.1 %
[2025-01-06 06:19] LABS: Calcium 8.8 mg/dL (8.7-10.4); Potassium 3.7 mmol/L (3.5-5.1)
[2025-01-06 06:20] LABS: Anion Gap 10 (5-15); Carbon Dioxide 29 mmol/L (20-31)
[2025-01-06 06:23] LABS: Chloride 95 mmol/L (98-107); Sodium 134 mmol/L (136-145)
[2025-01-06 06:25] LABS: BUN/Creatinine Ratio 32.0 (10.0-20.0); Blood Urea Nitrogen 32 mg/dL (9-23); Glucose 135 mg/dL (74-106)
--- NOTE | 2025-01-06 11:30 | DVHPN2 ---
Subjective The patient seen and examined at bedside. No complains today. Shortness of breath improved. Feel better Reviewed: Care Plan, H&P, Medications, Previous Orders, Radiology Changes from previous H/P or p: No Changes Eyes: No Pain, No Vision change, No Conjunctivae inflammation, No Eyelid inflammation, No Other, No Redness ENT: No Ear pain, No Ear discharge, No Nose pain, No Nose discharge, No Nose congestion, No Mouth pain, No Mouth swelling, No Throat pain, No Throat swelling, No Other Cardiovascular: No Chest Pain, No Palpitations, No Orthopnea, No Paroxysmal Noc. Dyspnea, No Edema, No Lt Headedness, No Other Respiratory: No Cough, No Dry; Shortness of breath, SOB with excertion; No Wheezing, No Hemoptysis, No Pleuritic Pain, No Sputum, No Other Gastrointestinal: No Nausea, No Vomiting; Abdominal Pain (epigastric); No Diarrhea, No Constipation, No Melena, No Hematochezia, No Other Genitourinary: No Dysuria, No Frequency, No Incontinence, No Hematuria, No Retention, No Other Musculoskeletal: No other, No neck pain, No shoulder pain, No arm pain, No back pain, No hand pain, No leg pain, No foot pain Skin: No Rash, No Lesions, No Jaundice, No Bruising, No Other Objective Vitals Vital Signs Date Time Temp Pulse Resp B/P (MAP) Pulse Ox O2 Delivery O2 Flow Rate FiO2 01/06/25 09:32 150/88 01/06/25 09:00 98.6 73 20 97 98.6 01/06/25 08:26 Room Air* 0 21 Intake/Output Intake and Output 01/06/25 07:00 Intake Total 1390 ml Output Total 2900 ml Balance -1510 ml Intake Oral 1390 ml Output Urine Total 2900 ml General Appearance: Alert, Cooperative, No acute distress HEENT: Atraumatic, PERRLA, EOMI, Mucous membr. moist/pink Neck: Supple Lungs: Clear to auscultation, Normal air movement Cardiovascular: Regular rate, Normal S1, Normal S2, No murmurs, Gallops, Rubs Abdomen: Normal bowel sounds, Soft, No tenderness Neuro: Cranial nerves 3-12 NL Psych/Mental Status: Mental status NL Medications Current Medications Medications Dose Ordered Sig/Praveena Route Start Time Stop Time Status Last Admin Dose Admin Acetaminophen/ Hydrocodone Bitart 1 tab Q4HP PRN PO 01/03/25 16:00 Hold Ondansetron HCl 4 mg Q4HP PRN IV 01/03/25 16:00 Docusate Sodium 100 mg BIDPRN PRN PO 01/03/25 16:00 01/06/25 06:21 100 MG Enoxaparin Sodium 40 mg DAILY SC 01/04/25 10:00 01/06/25 09:32 40 MG Acetaminophen 650 mg Q6HP PRN PO 01/03/25 16:00 01/06/25 01:59 650 MG Nitroglycerin 0.4 mg Q5MINP PRN SL 01/03/25 16:00 Morphine Sulfate 2 mg Q30M PRN IV 01/03/25 16:00 Methylprednisolone Sodium Succinate 40 mg BID IV 01/03/25 22:00 01/06/25 09:29 40 MG Furosemide 40 mg BIDD IV 01/03/25 18:00 01/06/25 05:47 40 MG Albuterol 2.5 mg Q6HPRN PRN NEB 01/03/25 16:00 Ipratropium [place] 0.5 mg Q6HPRN PRN NEB 01/03/25 16:00 Ceftriaxone Sodium 50 ml @ 100 mls/hr DAILY@09 IV 01/04/25 09:00 01/06/25 09:29 100 MLS/HR Clopidogrel Bisulfate 75 mg DAILY PO 01/04/25 10:00 01/06/25 09:32 75 MG Amlodipine Besylate 10 mg DAILY PO 01/04/25 10:00 01/06/25 09:32 10 MG Laboratory Results Laboratory Tests 01/06/25 05:34 Chemistry Test 01/06/25 05:34 Calcium Level 8.8 mg/dL (8.7-10.4) Urinalysis Test 01/03/25 09:53 Urine Color Dark-yellow (Yellow) Urine Clarity Turbid (Clear) H Urine pH 7.0 (5.0-9.0) Urine Specific [place] 1.021 (1.001-1.035) Urine Protein 2+ (Negative) H Urine Ketones Negative (Negative) Urine Blood 3+ /uL (Negative) H Urine Nitrite 1+ (Negative) H Urine Bilirubin 1+ (Negative) H Urine Urobilinogen 2 mg/dL (Negative) H Urine Leukocyte Esterase 3+ /uL (Negative) Urine RBC 281 /hpf (0 - 4) Urine Microscopic WBC 285 /HPF (0-5) H Urine Squamous Epithelial Cells Mod /hpf (<5) Urine Bacteria Few /hpf (None Seen) H Urine Mucus Few (None Seen) Urine Glucose Normal mg/dL (Normal) Assessment/Plan Assessment/Plan CHF (congestive heart failure), UTI, Pleural effusion, Pulmonary edema, Elevated troponin, Possible pneumonia, Hypertension, COPD exacerbation Plan: Continue current management. Continue withn IV Lasix, Breathing treatments with nebulizer, Continue IV antibiotics, Rocephin Review Echo, EF 30% with ischemic area. Will consult accredited legal secretary. Cotninue home medications Continue solumedrol Discharge planning This medical document was created using an electronic medical record system with [employer] direct computerized dictation system. Although this document has been carefully reviewed, there may still be some phonetic and typographical errors. These areas are purely typographical due to imperfections of the software programs, and do not reflect any compromise in the patient's medical care. Plan discussed with: Patient Date of Service: Jan 06, 2025 Billing Provider: GARO ARRINGTON MD Common Visit Codes: [id number] INP/OBS CARE(HIGH) GARO ARRINGTON MD Jan 06, 2025 11:30
--- NOTE | 2025-01-06 12:30 | DVH ---
EXAM: XY CHEST PORTABLE Indication: pain Technique: Single frontal view of the chest was obtained Comparison: XY CHEST PORTABLE on DOS: 01/03/25, XY CHEST XRAY 1 VIEW on DOS: 04/22/24, XY CHEST XRAY 1 VIEW on DOS: 04/20/24, XY CHEST PORTABLE on DOS: 04/19/24 FINDINGS: Lines and Tubes: None Lungs: Left basilar opacity. Pleura: Small left pleural effusion No pneumothorax. Cardiomediastinal contours: Cardiomegaly. Atherosclerotic vascular calcifications of the thoracic ao rta are noted. Bones: No acute osseous abnormality. IMPRESSION: Cardiomegaly and small left pleural effusion. Left basilar opacity.
--- NOTE | 2025-01-06 13:46 | DVHINCON2 ---
MARTHA EDWARDS RESIDENT 01/06/25 1346: Date Seen: Jan 06, [address] Laurent Reason for Consultation Elevated troponin History of Present Illness Estela Lopez is a 84-year-old female patient who presents to the ED with chief complaint of progressive dyspnea from Functional Class II to functional class for one week before her admission associated with nausea, nocturnal paroxysmal dyspnea and orthopnea. Patient also complaint of allergic reaction after receiving metoprolol and colchicine at her PCP's office (Dr. Hameed). Patient reports recent cardiological clearance for bladder stone lithotripsy done less than one month ago by her aircraft body repairer (Dr. Peña). Denies any associated symptoms including chest pain, syncope, lower limb extremity swelling and palpitation. Past medical history: Hypertension, dyslipidemia, NH in two opportunities (one in [place] approximately 10 years ago and one in [facility] in 2018), she presented as cardiac arrest with VFib requiring requiring CPR obtaining ROSC with posterior PCI to circumflex which was 100% occluded and posterior staged PCI to LAD and marginal, patient reports recent cardiac workup one month ago which was within normal limits, constipation, bladder stones, prolapse status post hysterectomy and oophorectomy. Surgical history: PCI x2, toe bunion repair, hysterectomy and oophorectomy Family history: Noncontributory Social history: Lives in [place] with family (next of kin is son). Denies current tobacco, alcohol and other drug abuse. Was exposed to heavy secondhand smoking. Allergies: Codeine, questionable metoprolol and colchicine Home medication: Amlodipine Patient seen and examined at bedside. Currently has no new complaints. Continues complaining of constipation, indicated MiraLax. Past Medical History Per HPI Past Surgical History Per HPI Family History: Alcoholism G8 FATHER Family History Per HPI Allergies: Coded Allergies: Codeine (Verified Allergy, Unknown, 08/21/17) Colchicine (Unverified Allergy, Unknown, 01/06/25) Metoprolol (Unverified Allergy, Unknown, 01/06/25) Home Meds Reported Medications Clopidogrel Bisulfate (CLOPIDOGREL) 75 Mg Tab, 1 TAB PO DAILY 04/19/24 Amlodipine Besylate (Amlodipine Besylate) 10 Mg Tab, 1 TAB PO DAILY 04/19/24 Home Meds Per HPI Review of Systems Per HPI Vital Signs Vital Signs Date Time Temp Pulse Resp B/P (MAP) Pulse Ox O2 Delivery O2 Flow Rate FiO2 01/06/25 13:00 98.2 95 20 156/88 (110) 98 98.2 01/06/25 10:00 Room Air 0.0 01/06/25 10:00 21 Physical Exam Patient lying in bed, in no acute distress General: Lucid, afebrile, mucosae are moist Cardiovascular: Normal S1 and S2. Holosystolic murmur best heard in apex which radiates towards axilla intensity 4/6. No gallops or rubs Respiratory: Normal ventilation mechanics. Bibasilar rales, rest of lung auscultation is clear Abdomen: Soft, nontender, no organomegaly, normal bowel sounds MSK/skin: Mobilizes 4 limbs. Skin is dry and warm. Bilateral infrapatellar pitting edema. Neurological: Oriented in 3 spheres. No motor no sensitive deficits. Pupils are isocoric and reactive Labs/Diagnostic Data Labs Test 01/06/25 05:34 01/04/25 04:30 01/03/25 13:11 01/03/25 09:53 Range/Units White Blood Count 7.7 4.4-10.8 10^3/uL Red Blood Count 5.25 H 4.0-5.20 10^6/uL Hemoglobin 14.8 12.2-16.2 g/dL Hematocrit 44.3 # 36.0-46.0 % Mean Corpuscular Volume 84.3 80.0-100.0 fL Mean Corpuscular Hemoglobin 28.1 28.0-32.0 pg Mean Corpuscular Hemoglobin Concent 33.3 32.0-36.0 g/dL Red Cell Distribution Width 15.7 H 11.8-14.3 % Platelet Count 310 140-450 10^3/uL Mean Platelet Volume 8.0 6.9-10.8 fL Neutrophils (%) (Auto) 78.5 37.0-80.0 % Lymphocytes (%) (Auto) 16.0 10.0-50.0 % Monocytes (%) (Auto) 5.5 0.0-12.0 % Eosinophils (%) (Auto) 0.0 0.0-7.0 % Basophils (%) (Auto) 0.0 0.0-2.0 % Neutrophils # (Auto) 6.1 1.6-8.6 10 ^3/uL Lymphocytes # (Auto) 1.2 0.4-5.4 10 ^3/uL Monocytes # (Auto) 0.4 0-1.3 10 ^3/uL Eosinophils # (Auto) 0 0-0.8 10 ^3/uL Basophils # (Auto) 0 0-0.2 10 ^3/uL Nucleated Red Blood Cells 0.1 % Sodium Level 134 L 136-145 mmol/L Potassium Level 3.7 3.5-5.1 mmol/L Chloride Level 95 L 98-107 mmol/L Carbon Dioxide Level 29 20-31 mmol/L Anion Gap 10 5-15 Blood Urea Nitrogen 32 H 9-23 mg/dL Creatinine 1.00 0.550-1.02 mg/dL Glomerular Filtration Rate Calc 56 >90 mL/min BUN/Creatinine Ratio 32.0 H 10.0-20.0 Serum Glucose 135 H 74-106 mg/dL Calcium Level 8.8 8.7-10.4 mg/dL Total Bilirubin 0.6 0.2-1.0 mg/dL Aspartate Amino Transferase (AST) 32 13-40 U/L Alanine Aminotransferase (ALT) 54 H 7-40 U/L Alkaline Phosphatase 102 46-116 U/L Total Protein 7.0 5.7-8.2 g/dL Albumin 3.8 3.2-4.8 g/dL Troponin I High Sensitivity 67 *H </=34 ng/L Urine Color Dark-yellow Yellow Urine Clarity Turbid H Clear Urine pH 7.0 5.0-9.0 Urine Specific [place] 1.021 1.001-1.035 Urine Protein 2+ H Negative Urine Ketones Negative Negative Urine Blood 3+ H Negative /uL Urine Nitrite 1+ H Negative Urine Bilirubin 1+ H Negative Urine Urobilinogen 2 H Negative mg/dL Urine Leukocyte Esterase 3+ Negative /uL Urine RBC 281 0 - 4 /hpf Urine Microscopic WBC 285 H 0-5 /HPF Urine Squamous Epithelial Cells Mod <5 /hpf Urine Bacteria Few H None Seen /hpf Urine Mucus Few None Seen Urine Glucose Normal Normal mg/dL Test 01/03/25 07:47 Range/Units B-Type Natriuretic Peptide 2453.60 0-100 pg/mL Assessment Acute respiratory failure secondary to CHF Acute on chronic systolic congestive heart failure (HFrEF, LVEF 30%) NSTEMI probable type 2 Ischemic cardiomyopathy CAD with history of NH s/p PCI with stent placement Left-sided pleural effusion 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 Initiated GDM T (Entresto, spironolactone and empagliflozin). Pending beta- blockers, we will initiate once patient's acute heart failure resolves. Patient has questionable metoprolol allergy, recommend initiating carvedilol once patient is in dry weight. Avoid amlodipine due to negative chronotropic effect in the setting of HFrEF. Patient troponin is mildly elevated and flat trending, probably secondary to CHF. EKG shows no acute ST alteration. Patient is on Clopidogrel. Added atorvastatin. Ordered Lipid panel. Recommend optimizing afterload and preload. Recommend conservative management at this point. IV antibiotic per hospitalist Goals of care discussed with patient for over 18 minutes: Full code status Discussed plan with Dr. Prince, patient and nurses: Patient currently on telemetry, continue with IV diuretics until fluid overload resolves. Optimize GDM T as tolerated, optimize afterload and preload. No invasive intervention recommended at this time. Continue with conservative management. Patient has poor prognosis Plan discussed with: Patient, Other (Nurses) NYHA Physical activity limitations: Class2(Slight)fatigue,sob Date of Service: Jan 06, 2025 Billing Provider: JESSI PRINCE MD Cardiology Common Codes: [id number] INP/OBS CARE (High) Cardiology Secondary Visit Cod: [id number] CARE PLAN 30 MINUTES JESSI PRINCE MD 01/07/25 1729: Family History: Alcoholism G8 FATHER Allergies: Coded Allergies: Codeine (Verified Allergy, Unknown, 08/21/17) Colchicine (Unverified Allergy, Unknown, 01/06/25) Metoprolol (Unverified Allergy, Unknown, 01/06/25) Home Meds Reported Medications Clopidogrel Bisulfate (CLOPIDOGREL) 75 Mg Tab, 1 TAB PO DAILY 04/19/24 Amlodipine Besylate (Amlodipine Besylate) 10 Mg Tab, 1 TAB PO DAILY 04/19/24 Plan/Recommendation PT SEEN AND EXAMINED WITH CV TEAM AGREE WITH RESIDENT ASSESSMENT AND PLAN I PEROSNALLY REVIEWED HER 2018 CATH AND PCI ALSO HER EF IS QUITE LOW WITH SIGNFICANT MR SHE FOLLOWS WITH HER OWN CARDS CONT GDMT Plan discussed with: Patient JAVIERMARTHA POLLACK RESIDENT Jan 06, 2025 13:46 JESSI PRINCE MD Jan 07, 2025 17:29
[2025-01-06 16:02] LABS: Triglycerides 100.0 mg/dL (< 150)
[2025-01-06 16:03] LABS: Magnesium 2.6 mg/dL (1.6-2.6)
[2025-01-06 16:06] LABS: Cholesterol 235.0 mg/dL (< 200); HDL Cholesterol 72.0 mg/dL (40-59)
[2025-01-06] MEDS: POLYETHYLENE GLYCOL 17 GM PWDR PO ONE (16:10)
[2025-01-06] MEDS: FUROSEMIDE 20 MG/2 ML VIAL IV SCH (17:11)
[2025-01-06 18:29] LABS: INR 1.02 (0.9-1.15); Partial Thromboplastin Time 26.5 SEC (24.5-34.5); Prothrombin Time 10.8 sec (9.3-11.8)
[2025-01-06] MEDS: SACUBITRIL-VALSARTAN 24mg/26mg TAB PO SCH (21:29)
[2025-01-06] MEDS: ATORVASTATIN 20 MG TAB PO SCH (21:30)
[2025-01-07] VITALS (12 sets, daily range): BP systolic 123–143; BP diastolic 74–142; PULSE 72–101; RESP 16–18; TEMP 96.6–98; O2SAT 93–99
[2025-01-07 07:06] LABS: Hematocrit 48.3 % (36.0-46.0); Hemoglobin 16.3 g/dL (12.2-16.2); Mean Corpuscular Hemoglobin 28.5 pg (28.0-32.0); Mean Corpuscular Volume 84.4 fL (80.0-100.0); Nucleated Red Blood Cells % 0.1 %
[2025-01-07 07:16] LABS: Potassium 4.1 mmol/L (3.5-5.1); Sodium 136 mmol/L (136-145)
[2025-01-07 07:17] LABS: Anion Gap 11 (5-15); Calcium 9.1 mg/dL (8.7-10.4); Carbon Dioxide 30 mmol/L (20-31); Chloride 95 mmol/L (98-107)
[2025-01-07 07:22] LABS: BUN/Creatinine Ratio 33.0 (10.0-20.0); Blood Urea Nitrogen 32 mg/dL (9-23); Glucose 153 mg/dL (74-106)
[2025-01-07] MEDS: SPIRONOLACTONE 25 MG TAB PO SCH (09:33)
[2025-01-07] MEDS: EMPAGLIFLOZIN 10 MG TAB PO SCH (09:35)
--- NOTE | 2025-01-07 11:48 | DVHPN2 ---
Subjective The patient seen and examined at bedside. No complains today. Shortness of breath improved. Feel better Reviewed: Care Plan, H&P, Medications, Previous Orders, Radiology Changes from previous H/P or p: No Changes Eyes: No Pain, No Vision change, No Conjunctivae inflammation, No Eyelid inflammation, No Other, No Redness ENT: No Ear pain, No Ear discharge, No Nose pain, No Nose discharge, No Nose congestion, No Mouth pain, No Mouth swelling, No Throat pain, No Throat swelling, No Other Cardiovascular: No Chest Pain, No Palpitations, No Orthopnea, No Paroxysmal Noc. Dyspnea, No Edema, No Lt Headedness, No Other Respiratory: No Cough, No Dry; Shortness of breath, SOB with excertion; No Wheezing, No Hemoptysis, No Pleuritic Pain, No Sputum, No Other Gastrointestinal: No Nausea, No Vomiting; Abdominal Pain (epigastric); No Diarrhea, No Constipation, No Melena, No Hematochezia, No Other Genitourinary: No Dysuria, No Frequency, No Incontinence, No Hematuria, No Retention, No Other Musculoskeletal: No other, No neck pain, No shoulder pain, No arm pain, No back pain, No hand pain, No leg pain, No foot pain Skin: No Rash, No Lesions, No Jaundice, No Bruising, No Other Objective Vitals Vital Signs Date Time Temp Pulse Resp B/P (MAP) Pulse Ox O2 Delivery O2 Flow Rate FiO2 01/07/25 08:54 97.6 77 18 129/76 (93) 95 97.6 01/07/25 07:44 Room Air 01/07/25 07:44 0 21 Intake/Output Intake and Output 01/07/25 07:00 Intake Total 1090 ml Output Total 1302 ml Balance -212 ml Intake Oral 1040 ml IV Total 50 ml Output Urine Total 1300 ml Stool Total 2 ml General Appearance: Alert, Cooperative, No acute distress HEENT: Atraumatic, PERRLA, EOMI, Mucous membr. moist/pink Neck: Supple Lungs: Clear to auscultation, Normal air movement Cardiovascular: Regular rate, Normal S1, Normal S2, No murmurs, Gallops, Rubs Abdomen: Normal bowel sounds, Soft, No tenderness Neuro: Cranial nerves 3-12 NL Psych/Mental Status: Mental status NL Medications Current Medications Medications Dose Ordered Sig/Praveena Route Start Time Stop Time Status Last Admin Dose Admin Acetaminophen/ Hydrocodone Bitart 1 tab Q4HP PRN PO 01/03/25 16:00 Hold Ondansetron HCl 4 mg Q4HP PRN IV 01/03/25 16:00 Docusate Sodium 100 mg BIDPRN PRN PO 01/03/25 16:00 01/06/25 06:21 100 MG Enoxaparin Sodium 40 mg DAILY SC 01/04/25 10:00 01/07/25 09:38 40 MG Acetaminophen 650 mg Q6HP PRN PO 01/03/25 16:00 01/06/25 21:30 650 MG Nitroglycerin 0.4 mg Q5MINP PRN SL 01/03/25 16:00 Morphine Sulfate 2 mg Q30M PRN IV 01/03/25 16:00 Methylprednisolone Sodium Succinate 40 mg BID IV 01/03/25 22:00 01/07/25 09:35 40 MG Albuterol 2.5 mg Q6HPRN PRN NEB 01/03/25 16:00 Ipratropium [place] 0.5 mg Q6HPRN PRN NEB 01/03/25 16:00 Ceftriaxone Sodium 50 ml @ 100 mls/hr DAILY@09 IV 01/04/25 09:00 01/07/25 09:34 100 MLS/HR Clopidogrel Bisulfate 75 mg DAILY PO 01/04/25 10:00 01/07/25 09:35 75 MG Sacubitril/ Valsartan 1 tab BID PO 01/06/25 22:00 01/07/25 09:35 1 TAB Spironolactone 25 mg DAILY PO 01/07/25 10:00 01/07/25 09:33 25 MG Empaglifozin 10 mg DAILY PO 01/07/25 10:00 01/07/25 09:35 10 MG Polyethylene Glycol 17 gm DAILYPRN PRN PO 01/06/25 15:30 Furosemide 20 mg BIDD IV 01/06/25 18:00 01/07/25 06:02 20 MG Atorvastatin Calcium 40 mg HS PO 01/06/25 22:00 01/06/25 21:30 40 MG Ergocalciferol 50,000 unit Q7D PO 01/07/25 09:30 Laboratory Results Laboratory Tests 01/07/25 06:12 Chemistry Test 01/07/25 06:12 Calcium Level 9.1 mg/dL (8.7-10.4) Coagulation Test 01/06/25 17:47 Prothrombin Time 10.8 sec (9.3-11.8) Prothrombin Time INR 1.02 (0.9-1.15) Activated Partial Thromboplast Time 26.5 SEC (24.5-34.5) HgA1c, TSH Test 01/06/25 17:47 Thyroid Stimulating Hormone (TSH) 1.79 uIU/mL (0.55-4.78) Urinalysis Test 01/03/25 09:53 Urine Color Dark-yellow (Yellow) Urine Clarity Turbid (Clear) H Urine pH 7.0 (5.0-9.0) Urine Specific [place] 1.021 (1.001-1.035) Urine Protein 2+ (Negative) H Urine Ketones Negative (Negative) Urine Blood 3+ /uL (Negative) H Urine Nitrite 1+ (Negative) H Urine Bilirubin 1+ (Negative) H Urine Urobilinogen 2 mg/dL (Negative) H Urine Leukocyte Esterase 3+ /uL (Negative) Urine RBC 281 /hpf (0 - 4) Urine Microscopic WBC 285 /HPF (0-5) H Urine Squamous Epithelial Cells Mod /hpf (<5) Urine Bacteria Few /hpf (None Seen) H Urine Mucus Few (None Seen) Urine Glucose Normal mg/dL (Normal) Assessment/Plan Assessment/Plan CHF (congestive heart failure), UTI, Pleural effusion, Pulmonary edema, Elevated troponin, Possible pneumonia, Hypertension, COPD exacerbation Plan: Continue current management. Continue withn IV Lasix, Breathing treatments with nebulizer, Continue IV antibiotics, Rocephin Review Echo, EF 30% with ischemic area. Will consult health service worker. Cotninue home medications Continue solumedrol Appreciate health service worker input. Started on Entresto, spironolactone and empagliflozin to see if patient tolerate it. Discharge planning This medical document was created using an electronic medical record system with [email or web address] computerized dictation system. Although this document has been carefully reviewed, there may still be some phonetic and typographical errors. These areas are purely typographical due to imperfections of the software programs, and do not reflect any compromise in the patient's medical care. Plan discussed with: Patient My Orders Orders - GARO ARRINGTON MD Procedure Category Date Status Time Discontinue Carolina VAUGHN 01/06/25 In Process Catheter 12:47 Date of Service: Jan 07, 2025 Billing Provider: GARO ARRINGTON MD Common Visit Codes: [id number] INP/OBS CARE(HIGH) GARO ARRINGTON MD Jan 07, 2025 11:48
[2025-01-07] MEDS: HYALURONIDASE 150 UNIT/1 ML SUBCUT ONE (12:00)
--- NOTE | 2025-01-07 12:07 | DVHPNRES ---
Progress Note Date Seen: Jan 07, 2025 Resident Creating Document: MARTHA EDWARDS RESIDENT Medical Necessity Reason Pt with a Central, PICC or Fol: No Subjective Review of Systems Estela Lopez is a 84-year-old female patient who presents to the ED with chief complaint of progressive dyspnea from Functional Class II to functional class for one week before her admission associated with nausea, nocturnal paroxysmal dyspnea and orthopnea. Patient also complaint of allergic reaction after receiving metoprolol and colchicine at her PCP's office (Dr. Hameed). Patient reports recent cardiological clearance for bladder stone lithotripsy done less than one month ago by her [employer] police (Dr. Peña). Denies any associated symptoms including chest pain, syncope, lower limb extremity swelling and palpitation. Past medical history: Hypertension, dyslipidemia, OR in two opportunities (one in [place] approximately 10 years ago and one in [facility] in 2018), she presented as cardiac arrest with VFib requiring requiring CPR obtaining ROSC with posterior PCI to circumflex which was 100% occluded and posterior staged PCI to LAD and marginal, patient reports recent cardiac workup one month ago which was within normal limits, constipation, bladder stones, prolapse status post hysterectomy and oophorectomy. Surgical history: PCI x2, toe bunion repair, hysterectomy and oophorectomy Family history: Noncontributory Social history: Lives in [place] with family (next of kin is son). Denies current tobacco, alcohol and other drug abuse. Was exposed to heavy secondhand smoking. Allergies: Codeine, questionable metoprolol and colchicine Home medication: Amlodipine Patient seen and examined at bedside. Currently has no new complaints, feels less dyspnea, improved lower limb swelling Objective vital signs Vital Sign Date Time Temp Pulse Resp B/P (MAP) Pulse Ox O2 Delivery O2 Flow Rate FiO2 01/07/25 08:54 97.6 77 18 129/76 (93) 95 97.6 01/07/25 07:44 Room Air 01/07/25 07:44 0 21 Total Intake and Output 01/06/25 01/06/25 01/07/25 15:00 23:00 07:00 Intake Total 50 ml 800 ml 240 ml Output Total 1302 ml Balance 50 ml -502 ml 240 ml medications Current Medications Medications Dose Ordered Sig/Praveena Route Start Time Stop Time Status Last Admin Dose Admin Acetaminophen/ Hydrocodone Bitart 1 tab Q4HP PRN PO 01/03/25 16:00 Hold Ondansetron HCl 4 mg Q4HP PRN IV 01/03/25 16:00 Docusate Sodium 100 mg BIDPRN PRN PO 01/03/25 16:00 01/06/25 06:21 100 MG Enoxaparin Sodium 40 mg DAILY SC 01/04/25 10:00 01/07/25 09:38 40 MG Acetaminophen 650 mg Q6HP PRN PO 01/03/25 16:00 01/06/25 21:30 650 MG Nitroglycerin 0.4 mg Q5MINP PRN SL 01/03/25 16:00 Morphine Sulfate 2 mg Q30M PRN IV 01/03/25 16:00 Methylprednisolone Sodium Succinate 40 mg BID IV 01/03/25 22:00 01/07/25 09:35 40 MG Albuterol 2.5 mg Q6HPRN PRN NEB 01/03/25 16:00 Ipratropium [place] 0.5 mg Q6HPRN PRN NEB 01/03/25 16:00 Ceftriaxone Sodium 50 ml @ 100 mls/hr DAILY@09 IV 01/04/25 09:00 01/07/25 09:34 100 MLS/HR Clopidogrel Bisulfate 75 mg DAILY PO 01/04/25 10:00 01/07/25 09:35 75 MG Sacubitril/ Valsartan 1 tab BID PO 01/06/25 22:00 01/07/25 09:35 1 TAB Spironolactone 25 mg DAILY PO 01/07/25 10:00 01/07/25 09:33 25 MG Empaglifozin 10 mg DAILY PO 01/07/25 10:00 01/07/25 09:35 10 MG Polyethylene Glycol 17 gm DAILYPRN PRN PO 01/06/25 15:30 Furosemide 20 mg BIDD IV 01/06/25 18:00 01/07/25 06:02 20 MG Atorvastatin Calcium 40 mg HS PO 01/06/25 22:00 01/06/25 21:30 40 MG Ergocalciferol 50,000 unit Q7D PO 01/07/25 09:30 Examination Patient lying in bed, in no acute distress General: Lucid, afebrile, mucosae are moist Cardiovascular: Normal S1 and S2. Holosystolic murmur best heard in apex which radiates towards axilla intensity 4/6. No gallops or rubs Respiratory: Normal ventilation mechanics. Bibasilar rales, rest of lung auscultation is clear Abdomen: Soft, nontender, no organomegaly, normal bowel sounds MSK/skin: Mobilizes 4 limbs. Skin is dry and warm.Mild bilateral perimalleolar edema. Neurological: Oriented in 3 spheres. No motor no sensitive deficits. Pupils are isocoric and reactive laboratory and microbiology Laboratory Tests 01/07/25 06:12 Test 01/07/25 06:12 Range/Units Serum Glucose 153 H 74-106 mg/dL Problem List/Assessment/Plan Problem List/Assessment/Plan Assessment Acute respiratory failure secondary to CHF Acute on chronic systolic congestive heart failure (HFrEF, LVEF 30%) NSTEMI probable type 2 Ischemic cardiomyopathy CAD with history of OR s/p PCI with stent placement Left-sided pleural effusion Moderate valvulopathy (MR, TR, PI and AI) UTI Hypertension Dyslipidemia Bladder urolithiasis History of prolapse status post hysterectomy and oophorectomy Plan/Recommendation Completed echocardiogram which showed LVEF 30% with global hypokinesia predominantly on inferior wall, RV function is moderately diminished, left atrial enlargement, moderate mitral annular classification the base of posterior mitral leaflet, moderate AI, PI, TR and MR Continue with IV diuretics, reduced dose to 20 mg IV b.i.d. Initiated GDM T (Entresto, spironolactone and empagliflozin). Pending beta- blockers, we will initiate once patient's acute heart failure resolves. Patient has questionable metoprolol allergy, recommend initiating carvedilol once patient is in dry weight. Avoid amlodipine due to negative chronotropic effect in the setting of HFrEF. Patient troponin is mildly elevated and flat trending, probably secondary to CHF. EKG shows no acute ST alteration. Patient is on Clopidogrel. Added atorvastatin. Ordered Lipid panel. Recommend optimizing afterload and preload. Recommend conservative management at this point. IV antibiotic per hospitalist Goals of care discussed with patient for over 18 minutes: Full code status Discussed plan with Dr. Prince, patient and nurses: Patient currently on telemetry, continue with IV diuretics until fluid overload resolves. Optimize GDM T as tolerated, optimize afterload and preload, evaluate starting beta blockers as out patient (patient has a questionable allergic reaction to metoprolol). No invasive intervention recommended at this time. Continue with conservative management. Patient has poor prognosis Plan discussed with: Patient, Other (Nurses) My Orders My Orders Orders - MARTHA EDWARDS Procedure Category Date Status Time Sacubitril-Valsartan PHA 01/06/25 In Process (Entresto 24-26 Mg 22:00 Spironolactone PHA 01/07/25 In Process (Aldactone) 10:00 Empagliflozin PHA 01/07/25 In Process (Jardiance) 10:00 Polyethylene Glycol PHA 01/06/25 In Process 17g Powder (Miralax 15:30 Furosemide Injection PHA 01/06/25 In Process (Lasix Injection) 18:00 Drug Screen LAB 01/06/25 Logged 15:27 Atorvastatin (Lipitor) PHA 01/06/25 In Process 22:00 Ergocalciferol PHA 01/07/25 In Process (Vitamin D 50,000 09:30 Visit Coding Cardiology RES Date of Service: Jan 07, 2025 Billing Provider: JESSI PRINCE MD Cardiology Common Codes: [id number] INP/OBS CARE (High) Cardiology Secondary Visit Cod: [id number] CARE PLAN 30 MINUTES MARTHA EDWARDS Jan 07, 2025 12:07
[2025-01-07] MEDS: ERGOCALCIFEROL 50,000 UNIT(1.25MG) CAP PO SCH (12:08)
[2025-01-08] VITALS (8 sets, daily range): BP systolic 132–141; BP diastolic 84–88; PULSE 72–85; RESP 16–18; TEMP 97.6–98; O2SAT 94–99
[2025-01-08 07:32] LABS: Hematocrit 48.7 % (36.0-46.0); Hemoglobin 16.7 g/dL (12.2-16.2); Mean Corpuscular Hemoglobin 28.8 pg (28.0-32.0); Mean Corpuscular Volume 83.9 fL (80.0-100.0); Nucleated Red Blood Cells % 0.1 %
[2025-01-08 07:34] LABS: Anion Gap 12 (5-15); Carbon Dioxide 29 mmol/L (20-31); Potassium 4.4 mmol/L (3.5-5.1); Sodium 137 mmol/L (136-145)
[2025-01-08 07:35] LABS: Calcium 9.3 mg/dL (8.7-10.4)
[2025-01-08 07:36] LABS: Chloride 96 mmol/L (98-107)
[2025-01-08 07:40] LABS: BUN/Creatinine Ratio 58.8 (10.0-20.0)
[2025-01-08 07:47] LABS: Blood Urea Nitrogen 57 mg/dL (9-23); Glucose 119 mg/dL (74-106)
[2025-01-08] MEDS ORDERED: SACU1TAB PO (10:13)
[2025-01-08] MEDS ORDERED: SPIR25TA PO (10:13)
[2025-01-08] MEDS ORDERED: EMPA1TAB PO (10:13)
[2025-01-08] MEDS ORDERED: FURO40TA4 PO (10:13)
[2025-01-08] MEDS ORDERED: ATOR40TA52 PO (10:19)
--- NOTE | 2025-01-08 10:22 | DVHDS2 ---
Discharge Summary Date of Admission Jan 03, 2025 at 16:00 Date of Discharge: Jan 08, 2025 Admitting Diagnosis CHF (congestive heart failure), UTI, Pleural effusion, Pulmonary edema, Elevated troponin, Possible pneumonia, Hypertension, COPD exacerbation Labs/Diagnostic Data: Laboratory Results Test 01/08/25 06:10 01/06/25 17:47 01/06/25 05:34 01/04/25 04:30 White Blood Count 7.0 10^3/uL (4.4-10.8) Red Blood Count 5.81 10^6/uL (4.0-5.20) Hemoglobin 16.7 g/dL (12.2-16.2) Hematocrit 48.7 % (36.0-46.0) Mean Corpuscular Volume 83.9 fL (80.0-100.0) Mean Corpuscular Hemoglobin 28.8 pg (28.0-32.0) Mean Corpuscular Hemoglobin Concent 34.3 g/dL (32.0-36.0) Red Cell Distribution Width 16.4 % (11.8-14.3) Platelet Count 377 10^3/uL (140-450) Mean Platelet Volume 8.1 fL (6.9-10.8) Neutrophils (%) (Auto) 62.8 % (37.0-80.0) Lymphocytes (%) (Auto) 27.1 % (10.0-50.0) Monocytes (%) (Auto) 10.1 % (0.0-12.0) Eosinophils (%) (Auto) 0.0 % (0.0-7.0) Basophils (%) (Auto) 0.0 % (0.0-2.0) Neutrophils # (Auto) 4.4 10 ^3/uL (1.6-8.6) Lymphocytes # (Auto) 1.9 10 ^3/uL (0.4-5.4) Monocytes # (Auto) 0.7 10 ^3/uL (0-1.3) Eosinophils # (Auto) 0 10 ^3/uL (0-0.8) Basophils # (Auto) 0 10 ^3/uL (0-0.2) Nucleated Red Blood Cells 0.1 % Sodium Level 137 mmol/L (136-145) Potassium Level 4.4 mmol/L (3.5-5.1) Chloride Level 96 mmol/L (98-107) Carbon Dioxide Level 29 mmol/L (20-31) Anion Gap 12 (5-15) Blood Urea Nitrogen 57 mg/dL (9-23) Creatinine 0.97 mg/dL (0.550-1.02) Glomerular Filtration Rate Calc 58 mL/min (>90) BUN/Creatinine Ratio 58.8 (10.0-20.0) Serum Glucose 119 mg/dL (74-106) Calcium Level 9.3 mg/dL (8.7-10.4) Prothrombin Time 10.8 sec (9.3-11.8) Prothrombin Time INR 1.02 (0.9-1.15) Activated Partial Thromboplast Time 26.5 SEC (24.5-34.5) Vitamin B12 Level 274 pg/mL (211-911) Vitamin D 25-Hydroxy 25.8 ng/mL (30.0-100) Thyroid Stimulating Hormone (TSH) 1.79 uIU/mL (0.55-4.78) Hemoglobin A1c 5.2 % A1C (<5.7) Phosphorus Level 4.5 mg/dL (2.4-5.1) Magnesium Level 2.6 mg/dL (1.6-2.6) Triglycerides Level 100 mg/dL (< 150) Cholesterol Level 235 mg/dL (< 200) LDL Cholesterol 164 mg/dL (< 100) HDL Cholesterol 72 mg/dL (40-59) Total Bilirubin 0.6 mg/dL (0.2-1.0) Aspartate Amino Transferase (AST) 32 U/L (13-40) Alanine Aminotransferase (ALT) 54 U/L (7-40) Alkaline Phosphatase 102 U/L (46-116) Total Protein 7.0 g/dL (5.7-8.2) Albumin 3.8 g/dL (3.2-4.8) Test 01/03/25 13:11 01/03/25 09:53 01/03/25 07:47 Troponin I High Sensitivity 67 ng/L (</=34) Urine Color Dark-yellow (Yellow) Urine Clarity Turbid (Clear) Urine pH 7.0 (5.0-9.0) Urine Specific [place] 1.021 (1.001-1.035) Urine Protein 2+ (Negative) Urine Ketones Negative (Negative) Urine Blood 3+ /uL (Negative) Urine Nitrite 1+ (Negative) Urine Bilirubin 1+ (Negative) Urine Urobilinogen 2 mg/dL (Negative) Urine Leukocyte Esterase 3+ /uL (Negative) Urine RBC 281 /hpf (0 - 4) Urine Microscopic WBC 285 /HPF (0-5) Urine Squamous Epithelial Cells Mod /hpf (<5) Urine Bacteria Few /hpf (None Seen) Urine Mucus Few (None Seen) Urine Glucose Normal mg/dL (Normal) B-Type Natriuretic Peptide 2453.60 pg/mL (0-100) Other Laboratory Tests 01/08/25 06:10 Brief Hx & Hospital Course: This is 84 years old female with past medical history of hypertension, MT, coronary artery disease status post PTCA with stents, come to emergency department because of severe shortness for breath and abdominal pain. Patient has been experience on and off abdominal pain and shortness for breath. Her shortness for breath worsened on exertion. The patient was admitted. Troponin level three set was mildly elevated 75. Chest x-ray showed: Cardiomegaly with bilateral pleural effusions and pulmonary edema. Patient was admitted. The patient was put on IV antibiotic and also IV Lasix. The patient subsequently doing better. Echo showed:Left atrial enlargement. Moderate mitral annular calcification of the base of the posterior mitral leaflet. The aortic is mild sclerosis. The tricuspid and pulmonic normal. Left ventricular function is diminished. EF is approximately 30% with global hypokinesis predominantly of the inferior wall. Right ventricular function is moderately diminished. There is moderate aortic insufficiency. Moderate mitral regurgitation with moderate tricuspid regurgitation. Moderate pulmonic insufficiency. There appears to be left pleural effusion. Trace pericardial effusion not hemodynamically significant. No intracardiac masses thrombi or vegetations discernible. Cardiology was consulted. Recommend to start the patient on congestive heart failure regimen including Entresto, spironolactone and empagliflozin. Recommend to stop amlodipine due to negative chronotropic effect in the setting of HFrEF. Recommend optimizing afterload and preload. Recommend conservative management at this point. Today the patient doing well. No coughing. No shortness for breath. I am going to discharge her home. Advised her to follow up with primary care physician 1-2 weeks. 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 Activity as tolerated. Diet low-salt low- cholesterol diet. Physical exam HEENT: Normocephalic atraumatic pupils equal react to light and accommodation. Extraocular muscles intact, conjunctiva pink, oropharynx moist, no thrush, no exudate. Lymphatic: No lymphadenopathy Cardiovascular exam: S1, S2 was heard. No murmurs, rubs, gallops Lung: Clear on auscultation bilaterally, no wheeze, rale, rhonchi. GI: Abdominal soft, nondistended, nontenderness, positive bowel sounds. Extremity: No crepitus, cyanosis, edema. Pedal pulses present bilateral. Full range of motion. Skin: Normal turgor, no rash. Psych: Alert, oriented x3. Neurology: No focal deficits, cranial nerve II to XII grossly intact. This medical document was created using an electronic medical record system with Alere dictation system. Although this document has been carefully reviewed, there may still be some phonetic and typographical errors. These areas are purely typographical due to imperfections of the software programs, and do not reflect any compromise in the patient's medical care. 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 AI) UTI Hypertension Dyslipidemia Bladder urolithiasis History of uterine prolapse status post hysterectomy and oophorectomy Discharge Disposition: Home Discharge Instruct/Medications Diet: Cardiac 2g Na,low cholest Activity: No Restrictions, As Tolerated Follow Up/Referral: pcp 1-2 weeks Medications: See med list Scheduled Atorvastatin Calcium (Atorvastatin Calcium), 1 TAB PO DAILY Clopidogrel Bisulfate (Clopidogrel), 1 TAB PO DAILY, (Reported) Empagliflozin (Jardiance), 10 MG PO DAILY Furosemide (Furosemide), 1 TAB PO DAILY Sacubitril-Valsartan (Entresto 24-26 mg), 1 TAB PO BID Spironolactone (Aldactone), 25 MG PO DAILY Discontinued Medications Amlodipine Besylate (Amlodipine Besylate), 1 TAB PO DAILY, (Reported) Discharge Statement: "Patient was advised to return to the ER or call 911 if any headaches, dizziness, shortness of breath, chest pain, abdominal pain, bleeding, fevers, or worsening of medical condition. Patient was counseled about treatment plan, medications, possible side effects, patientverbalized understanding. All questions were answered to the best of my ability. This discharge took greater then 30 minutes in planning, reviewing documentation, counseling the patient, and discussing with other team members." ASSESSMENT ASSESSMENT Assessment CHF exacerbation NSTEMI type 2 Date of Service: Jan 08, 2025 Billing Provider: GARO ARRINGTON MD Common Visit Codes: 42565-LXF/OBS DISCH DAY >30min GARO ARRINGTON MD Jan 08, 2025 10:21
--- NOTE | 2025-01-08 10:50 | DVHPNRES ---
Progress Note Date Seen: Jan 08, 2025 Resident Creating Document: MARTHA EDWARDS RESIDENT Medical Necessity Reason Pt with a Central, PICC or Fol: No Subjective Review of Systems Estela Lopez is a 84-year-old female patient who presents to the ED with chief complaint of progressive dyspnea from Functional Class II to functional class for one week before her admission associated with nausea, nocturnal paroxysmal dyspnea and orthopnea. Patient also complaint of allergic reaction after receiving metoprolol and colchicine at her PCP's office (Dr. Hameed). Patient reports recent cardiological clearance for bladder stone lithotripsy done less than one month ago by her nailer operator (Dr. Peña). Denies any associated symptoms including chest pain, syncope, lower limb extremity swelling and palpitation. Past medical history: Hypertension, dyslipidemia, [place] in two opportunities (one in [place] approximately 10 years ago and one in [facility] in 2018), she presented as cardiac arrest with VFib requiring requiring CPR obtaining ROSC with posterior PCI to circumflex which was 100% occluded and posterior staged PCI to LAD and marginal, patient reports recent cardiac workup one month ago which was within normal limits, constipation, bladder stones, prolapse status post hysterectomy and oophorectomy. Surgical history: PCI x2, toe bunion repair, hysterectomy and oophorectomy Family history: Noncontributory Social history: Lives in [place] with family (next of kin is son). Denies current tobacco, alcohol and other drug abuse. Was exposed to heavy secondhand smoking. Allergies: Codeine, questionable metoprolol and colchicine Home medication: Amlodipine Patient seen and examined at bedside. Currently has no new complaints, patient mobilizes with no dyspnea, no leg swelling. Objective vital signs Vital Sign Date Time Temp Pulse Resp B/P (MAP) Pulse Ox O2 Delivery O2 Flow Rate FiO2 01/08/25 10:00 94 Room Air* 0 21 01/08/25 08:50 97.6 73 17 132/84 (100) 97.6 Total Intake and Output 01/07/25 01/07/25 01/08/25 15:00 23:00 07:00 Intake Total 250 ml 400 ml 200 ml Balance 250 ml 400 ml 200 ml medications Current Medications Medications Dose Ordered Sig/Praveena Route Start Time Stop Time Status Last Admin Dose Admin Ondansetron HCl 4 mg Q4HP PRN IV 01/03/25 16:00 Docusate Sodium 100 mg BIDPRN PRN PO 01/03/25 16:00 01/08/25 09:23 100 MG Enoxaparin Sodium 40 mg DAILY SC 01/04/25 10:00 01/08/25 09:20 40 MG Acetaminophen 650 mg Q6HP PRN PO 01/03/25 16:00 01/07/25 20:50 650 MG Nitroglycerin 0.4 mg Q5MINP PRN SL 01/03/25 16:00 Morphine Sulfate 2 mg Q30M PRN IV 01/03/25 16:00 Methylprednisolone Sodium Succinate 40 mg BID IV 01/03/25 22:00 01/08/25 09:21 40 MG Albuterol 2.5 mg Q6HPRN PRN NEB 01/03/25 16:00 Ipratropium [place] 0.5 mg Q6HPRN PRN NEB 01/03/25 16:00 Ceftriaxone Sodium 50 ml @ 100 mls/hr DAILY@09 IV 01/04/25 09:00 01/08/25 09:21 100 MLS/HR Clopidogrel Bisulfate 75 mg DAILY PO 01/04/25 10:00 01/08/25 09:21 75 MG Sacubitril/ Valsartan 1 tab BID PO 01/06/25 22:00 01/08/25 09:21 1 TAB Spironolactone 25 mg DAILY PO 01/07/25 10:00 01/08/25 09:21 25 MG Empaglifozin 10 mg DAILY PO 01/07/25 10:00 01/08/25 09:21 10 MG Polyethylene Glycol 17 gm DAILYPRN PRN PO 01/06/25 15:30 Atorvastatin Calcium 40 mg HS PO 01/06/25 22:00 01/07/25 20:44 40 MG Ergocalciferol 50,000 unit Q7D PO 01/07/25 09:30 01/07/25 12:08 50,000 UNIT Furosemide 40 mg DAILY PO 01/08/25 10:00 UNV Examination Patient lying in bed, in no acute distress General: Lucid, afebrile, mucosae are moist Cardiovascular: Normal S1 and S2. Holosystolic murmur best heard in apex which radiates towards axilla intensity 4/6. No gallops or rubs Respiratory: Normal ventilation mechanics. Bilateral clear lung sounds Abdomen: Soft, nontender, no organomegaly, normal bowel sounds MSK/skin: Mobilizes 4 limbs. Skin is dry and warm. No peripheral edema Neurological: Oriented in 3 spheres. No motor no sensitive deficits. 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 Follow weight as outpatient, and continue follow up with nailer operator.. Initiated GDM T (Entresto, spironolactone and empagliflozin). Pending beta- blockers,recommend initiating as outpatient with nailer operator (Dr Peña). Patient has questionable metoprolol allergy. Patient has UTI, with no pyelonephritis. Will continue with Empagliflozin at this time. If patient has recurrent of severe UTI, she should stop taking SGLT-2 inhibitors. Avoid amlodipine due to negative chronotropic effect in the setting of HFrEF. Patient troponin is mildly elevated and flat trending, probably secondary to CHF. EKG shows no acute ST alteration. Patient is on Clopidogrel. Added atorvastatin. Ordered Lipid panel. Recommend optimizing afterload and preload. Recommend conservative management at this point. IV antibiotic per hospitalist Goals of care discussed with patient for over 18 minutes: Full code status Discussed plan with Dr. Gonzalez, patient and nurses: Patient currently on telemetry, patient is in dry weight, switched IV diuretics to PO furosemide. Optimize GDM T as tolerated, optimize afterload and preload, evaluate starting beta blockers as out patient (patient has a questionable allergic reaction to metoprolol). No invasive intervention recommended at this time. Continue with conservative management. We will sign off from case. Patient has poor prognosis Plan discussed with: Patient, Other (Nurses) My Orders My Orders Orders - MARTHA EDWARDS Procedure Category Date Status Time Furosemide Tablet PHA 01/08/25 Logged (Lasix Tablet) 10:00 Visit Coding Cardiology RES Date of Service: Jan 08, 2025 Billing Provider: NAVARRO GONZALEZ Sr., MD Cardiology Secondary Visit Cod: [id number] CARE PLAN 30 MINUTES MARTHA EDWARDS RESIDENT Jan 08, 2025 10:50
[2025-01-08] MEDS: POLYETHYLENE GLYCOL 17 GM PWDR PO PRN (12:06)
[2025-01-08] MEDS: FUROSEMIDE 40 MG TAB PO SCH (12:06)
== END 2025-01-08 15:20 | disposition home or self-care (01) | DRG 280 ==
LOC: EDBD 06:54 → ER 06:54 → OVERFLOW 16:00 → TELE-WESTW 21:23
PROVIDERS: ADMIT Internal Medicine; ATTEND Internal Medicine
DX: I11.0 Hypertensive heart disease with heart failure (principal); I50.23 Acute on chronic systolic (congestive) heart failure; I21.A1 Myocardial infarction type 2; J18.9 Pneumonia, unspecified organism; J96.00 Acute respiratory failure, unspecified whether with hypoxia or hypercapnia; J44.1 Chronic obstructive pulmonary disease with (acute) exacerbation; N39.0 Urinary tract infection, site not specified; I25.10 Atherosclerotic heart disease of native coronary artery without angina pectoris; I25.5 Ischemic cardiomyopathy; E78.5 Hyperlipidemia, unspecified; I08.1 Rheumatic disorders of both mitral and tricuspid valves; N21.0 Calculus in bladder; I35.1 Nonrheumatic aortic (valve) insufficiency; I25.2 Old myocardial infarction; Z79.02 Long term (current) use of antithrombotics/antiplatelets; Z82.49 Family history of ischemic heart disease and other diseases of the circulatory system; Z83.3 Family history of diabetes mellitus; Z86.74 Personal history of sudden cardiac arrest; Z88.5 Allergy status to narcotic agent; Z90.710 Acquired absence of both cervix and uterus; Z95.5 Presence of coronary angioplasty implant and graft
CPT/HCPCS: 36415; 71045; 80048; 80053; 80061; 81001; 82306; 82607; 83036; 83735; 83880; 84100; 84443; 84484; 85025; 85610; 85730; 93005; 93306; 96374; 96375; 99291; 99292; G0378; J3470